=== PATIENT | male | born 1950 | race Caucasian/White ===

== ENCOUNTER 2018-11-16 18:18 | Inpatient (IN) | payer MEDICARE, OTHER ==
[~2018-11-16] VITALS: Ht 175.3 cm; Wt 87.5 kg
--- NOTE | ~2018-11-16 | EC ---
PATIENT:HELGA OLSON DATE OF SERVICE: 11/16/18 SEX: M MEDICAL RECORD: [id number] DATE OF : [birth year] LOCATION:D.[facility] AGE OF PATIENT: 68 ADMISSION DATE: 11/16/18 REFERRING PHYSICIAN: INTERPRETING PHYSICIAN: YANN RODRIGES MD ECHOCARDIOGRAM REPORT ECHO CHARGES 4 ECHO COMPLETE Date: 11/19/18 CLINICAL DIAGNOSIS: CHF/HYPOTENSION ECHOCARDIOGRAPHIC MEASUREMENTS (adult normal given) AC root (d.<3.7cm) 3.3 cm LV Septum d (<1.2 cm> 1.4 cm Valve Excursion 1.7 cm LV Septum (systole) 2.3 cm Left Atria (s.<4.0cm> 5.1 cm LVPW d(<1.2cm) 2.0 cm RV (d.<2.3cm) 3.1 cm LVPW (sytole) 2.6 cm LV diastole(<5.6CM) 5.2 cm MV E-F(>70mm/sec) cm LV systole 2.8 cm LVOT Diameter 2.1 cm MV exc.(>10mm) cm Est.ejection fraction (50-75%) % DOPPLER: LVIT cm/sec A 85.0 cm/sec E 66.0 cm/sec LA cm/sec RVSP 31.0 mmHg LVOT 91.0 cm/sec AOP1/2T m/s Asc. Ao 133 cm/sec RVOT 67.0 cm/sec RA cm/sec PA 97.0 cm/sec AV Gradient Peak 7.0 mmHg AV Mean 3.6 mmHg AV Area 2.3 cm MV Gradient Peak 4.2 mmHg MV Mean 1.7 mmHg MV Area cm COMMENTS: Human Services Program Specialist: Phyllis GUTIERRESOE Supervisor Heavy Equipment: 3 Dr. Haddad TAPE# PACS Pericardial Effusion N DATE OF SERVICE: Adequate 2D, color flow, spectral Doppler, and M-mode. LVH is present. LV internal dimensions are normal. LV is mildly globally hypo. LV function is lower limits of normal to mildly reduced at 45% to 50%. Aortic valve is tricuspid. No evidence of stenosis by Doppler interrogation. Left atrium is dilated at 5.1 cm. Mitral valve shows no prolapse. Mild MR. Right-sided chambers grossly normal. Trace to mild TR. TRANSINT:[id number] Voice Confirmation ID: [id number] DOCUMENT ID: [id number] ECHOCARDIOGRAM REPORT [id number] HELGA OLSON GREGORY A MD CC: [id number] DICTATION DATE: 11/20/18847 CARTON FORMING MACHINE OPERATOR: 11/20/18 1041 ADM IN [facility] [address] [place] [address]
[~2018-11-16 18:18] MED LIST: ASPIRIN325 MG PO; COREG 3.1253.125 MG NG; EFFEXOR75 MG PO; FLOMAX0.4 MG PO; GLUCOPHAGE1000 MG PO; HYDROCODONE-APA1 TAB PO; LIPITOR80 MG PO; PACERONE200 MG PO; ZESTRIL20 MG PO
[2018-11-16] MEDS ORDERED: COREG12.5 MG PO (18:29)
[2018-11-16] MEDS ORDERED: ASPIRIN81 MG PO (18:29)
[2018-11-16] MEDS ORDERED: EFFEXOR XR150 MG PO (18:29)
[2018-11-16] MEDS ORDERED: PLAVIX75 MG PO (18:30)
[2018-11-16] MEDS ORDERED: GLIMEPIRIDE4 MG PO (18:30)
[2018-11-16] MEDS ORDERED: HYDROCHLOROTH12.5 M1 PO (18:30)
[2018-11-16 20:14] LABS: BASOPHILS 0.1 % (0-2); EOSINOPHILS 0.6 % (0-7); HEMATOCRIT 41.8 % (42.0-54.0); HEMOGLOBIN 14.5 g/dL (13.5-17.5); IMMATURE GRANULOCYTES 0.2 % (0-5); LYMPHOCYTES 8.5 % (15-50); MCH 31.3 pg (26.0-34.0); MCHC 34.7 g/dL (31.0-37.0); MCV 90.3 fL (80.0-100.0); MONOCYTES 3.7 % (2-11); NEUTROPHILS 86.9 % (40-80); PLATELET COUNT 188 10x3/uL (130-400); RBC 4.63 10x6/uL (4.20-6.10); RDW 13.5 % (11.5-14.5); WBC 17.1 10x3/uL (4.8-10.8)
--- NOTE | 2018-11-16 20:21 | NUR ---
PT GIVEN WARM BLANKETS.
[2018-11-16 20:23] LABS: APTT 23.9 SECONDS (22.8-39.4); INR 1.01 (0.85-1.17); PROTIME 12.8 SECONDS (11.6-15.0)
[2018-11-16 20:29] LABS: ALBUMIN 3.4 g/dL (3.4-5.0); ANION GAP 12.2 mmol/L (8-16); BILIRUBIN - TOTAL 0.25 mg/dL (0.2-1.3); CALCIUM 8.9 mg/dL (8.5-10.1); CARBON DIOXIDE 26.6 mmol/L (21.0-32.0); CREATININE - SERUM 2.4 mg/dL (0.6-1.3); POTASSIUM - SERUM 4.8 mmol/L (3.5-5.1); PROTEIN - SERUM 7.1 g/dL (6.4-8.2)
--- NOTE | 2018-11-16 21:45 | NUR ---
PT'S DEFIBULATOR INTERROGATED AND SENT TO [employer].
--- NOTE | 2018-11-16 22:24 | NUR ---
ARRIVED ON FLOOR VIA STRETCHER. FAMILY AT SIDE. TREANSFERRED TO BED. ORIENTED TO ROOM AND CALL LIGHT. REIMBURSEMENT AUDITOR AND FLUIDS INITITATED. ASSESSMENT AND HISTORY PER FLOW SHEET. NO NEEDS VOICED AT THIS TIME. CALL LIGHT AT SIDE.
--- NOTE | 2018-11-16 22:54 | NUR ---
[facility] CALLED AND REPORTS THERE WAS NO EVENTS ON HIS PACEMAKER/DEFIB. REPORT TO FOLLOW VIA FAX.
[2018-11-17] VITALS (7 sets, daily range): BP systolic 89–115; BP diastolic 49–73; Ht 175.3 cm; Wt 87.5 kg
--- NOTE | 2018-11-17 05:41 | NUR ---
BP 89/51 500ML NS BOLUS GIVEN WILL RECHECK BP.
--- NOTE | 2018-11-17 06:03 | NUR ---
BP NOW 115/73
[2018-11-17 06:48] LABS: BASOPHILS 0.1 % (0-2); EOSINOPHILS 0 % (0-7); HEMATOCRIT 37.1 % (42.0-54.0); HEMOGLOBIN 12.8 g/dL (13.5-17.5); IMMATURE GRANULOCYTES 0.1 % (0-5); LYMPHOCYTES 19.1 % (15-50); MCH 31.3 pg (26.0-34.0); MCHC 34.5 g/dL (31.0-37.0); MCV 90.7 fL (80.0-100.0); MEAN PLATELET VOLUME 10.4 fL (7.4-10.4); MONOCYTES 7.4 % (2-11); NEUTROPHILS 73.3 % (40-80); PLATELET COUNT 174 10x3/uL (130-400); RBC 4.09 10x6/uL (4.20-6.10); RDW 13.7 % (11.5-14.5)
[2018-11-17 06:51] LABS: WBC 9.3 10x3/uL (4.8-10.8)
[2018-11-17 06:57] LABS: ALBUMIN 2.9 g/dL (3.4-5.0); ANION GAP 13.6 mmol/L (8-16); BILIRUBIN - TOTAL 0.28 mg/dL (0.2-1.3); CALCIUM 8.2 mg/dL (8.5-10.1); CARBON DIOXIDE 24.1 mmol/L (21.0-32.0); CREATININE - SERUM 2.4 mg/dL (0.6-1.3); POTASSIUM - SERUM 4.7 mmol/L (3.5-5.1); PROTEIN - SERUM 6.2 g/dL (6.4-8.2)
--- NOTE | 2018-11-17 07:00 | NUR ---
UNABLE TO VOID. IN AND OUT PREFORMED USING FINAL INSPECTOR MOTORCYLES WITH 700 ML RETURN.
[2018-11-17 08:45] LABS: APPEARANCE CLEAR (CLEAR); BILIRUBIN NEGATIVE (NEGATIVE); COLOR YELLOW (YELLOW); GLUCOSE 250 mg/dL (NEGATIVE); KETONE NEGATIVE (NEGATIVE); NITRITE NEGATIVE (NEGATIVE); PROTEIN 1+ mg/dL (NEGATIVE); SPECIFIC GRAVITY 1.025 (1.005-1.020); UROBILINOGEN NORMAL (NORMAL)
[2018-11-17 08:46] LABS: WHITE CELLS - URINE NSEEN /hpf (0-5)
[2018-11-17 08:47] LABS: BACTERIA NONE SEEN /hpf (NONE SEEN); EPITHELIAL CELLS NSEEN /hpf (0-5); RED CELLS - URINE 0-5 /hpf (0-5)
--- NOTE | 2018-11-17 09:00 | NUR ---
ALERT AND ORIENTED X4 WITH FAMILY PRESENT. LIMITED ROM WITH SHORTNNG OF LLE WITH PEDAL PULSES NOTED. PT. NPO PENDING SURGERY TODAY WITH CONSENTS SIGNED. IVF INFUSING AT PRESCRIBED RATE WITH ADMINISTRATIVE SUPPORT ASSISTANT MORPHINE. TELEMETRY INTACT. ENCOURAGED TO USE CALL LIGHT FOR ASSIST. WITH NO PAIN NOTED AT THIS TIME.
[2018-11-17 12:00] LABS: PLT FUNCT.(P2Y12) PLAVIX 79 PRU (194-418)
--- NOTE | 2018-11-17 12:15 | NUR ---
PT PREMEDICATED FOR SURGERY AND LEFT VIA BED. STABLE AT TIME OF DEPARTURE.
[2018-11-17 14:42] LABS: HEMATOCRIT 36.1 % (42.0-54.0)
--- NOTE | 2018-11-17 17:41 | NUR ---
CONSULTED ANESTHESIA REGARDING DECREASED BLOOD PRESSURE UPON ARRIVAL TO PACU. VERBAL ORDERS RECEIVED TO ADMINISTER N2 0.9% 500 BOLUS. ORDERS RECEIVED AND IMPLEMENTED. WILL CONTINUE TO MONITOR. BP 75/59, HR 71.
--- NOTE | 2018-11-17 18:05 | NUR ---
PT RECEIVED BACK TO ROOM WITH DRESSINGS DRY AND INTACT TO LT. HIP. EASY TO AROUSE WITH O2 4 LITERS N/C WITH TELEMETRY
--- NOTE | 2018-11-17 19:15 | NUR ---
RECEIVED CARE FROM DAY NURSE. LYING IN BED WITH COMPANY AT SIDE. IV INFUSING TO PATENT RIGHT HAND. CONTINUOUS VITALS IN PLACE. ICE TO LEFT HIP. DRESSING TO LEFT HIP CDI. CALL LIGHT AT SIDE. REPORTS NO NEEDS AT THIS TIME.
--- NOTE | 2018-11-17 20:50 | OP ---
PATIENT NAME: HELGA OLSON MEDICAL RECORD: [id number] :50 LOCATION:D.MS [id number] ADMISSION DATE:11/16/18 SURGEON: ALYSSA EGAN DO DATE OF OPERATION: 11/17/2018 PROCEDURE PERFORMED: Left hip intramedullary nailing. PREOPERATIVE DIAGNOSIS: Left femur subtrochanteric fracture closed and displaced. POSTOPERATIVE DIAGNOSIS: Left femur subtrochanteric fracture closed and displaced. INDICATIONS: Mr. Olson is a 68-year-old male who fell off his porch yesterday and down some steps onto his left hip and sustained a subtrochanteric hip fracture. It was comminuted and displaced and shortened and he came to the ER and could not bear weight on it, I informed them I could put a angela down and hopefully get it to heal. However, he is a smoker and has cardiovascular disease as well. I told him that if he did not stop smoking the chances of nonunion is very high, as well as infection, bleeding, damage to nerves and vessels, need for further surgery, and continued pain. He was okay with those risks also with blood clots, and even and he signed a consent. SURGEON: Alyssa Egan DO DESCRIPTION OF PROCEDURE: The patient was taken to the operative suite, laid in the supine position, given a general anesthetic and LMA was placed. The patient was then moved over to the Melville table and a reduction was attempted closed and this clearly seemed not be possible. The left hip was then prepped and draped in sterile fashion. The hip was opened on the lateral aspect. Dissection was made down through the IT band to the fracture itself. The fracture was somewhat difficult, but we got it reduced. Once we reduced, a cable was put around it; 2 cables and then a clamp. Once that was holding, the IM nail portion began and on AP and lateral, got good entry into the intramedullary canal of the femur. Once the canal was entered, the guide pin was put down the femur and measured to be a 380 mm in length. We started reaming then and reamed up to a 13 and 11 nail was put down and seemed to be in good position on AP and lateral and holding the fracture well. The lag screw was then put in and seemed to be in good position on AP and lateral, a 105-mm lag screw and then antirotational screw of 85 were put in. This was confirmed to be in good position AP and lateral. Then, a perfect [place] was done distally and a static hole was used to put a 5-mm screw and the final x-rays were then done. The poke hole for the distal screw was closed with 2-0 Vicryl in an inverted interrupted fashion, 4-0 Monocryl subcuticularly. The upper portion of the longer incision was irrigated thoroughly and then closed with #1 Vicryl in a [id number]-vr-hobfx fashion. The IT band was closed with 2-0 Vicryl in inverted interrupted fashion and the skin and a ZipLine was placed on the skin. Adaptic, 4 x 4's, ABD and Medipore tape were then used to cover the larger incision. Adaptic, 4 x 4s and Medipore tape were used at the small incision distally. The patient was awakened and taken to the recovery in stable condition. Blood loss approximately 600 mL. OPERATIVE REPORT [id number] HELGA OLSON COMPLICATIONS: None. TRANSINT:[id number] Voice Confirmation ID: [id number] DOCUMENT ID: [id number] ALYSSA EGAN DO at 2050 CC: [id number] DICTATION DATE: 11/17/18 1647 RETAIL CUSTODIAL ASSOCIATE: 11/17/182037 ADM IN [facility] [address] [place] [address]
[2018-11-18] VITALS: BP 111/54
--- NOTE | 2018-11-18 00:42 | NUR ---
UNABLE TO VOID. IN AND OUT CATH USING CHIP PERSON DONE PER ORDER. RETURN OF 800 ML OF DARK YELLOW URINE.
--- NOTE | 2018-11-18 03:11 | NUR ---
I have reviewed this patient and I concur with the Shift Assessment completed by the Licensed Practical Nurse today this shift.
[2018-11-18 04:00] VITALS: BP 99/61
--- NOTE | 2018-11-18 07:00 | NUR ---
PATIENT RECIEVED FROM PREVIOUS SHIFT RESTING IN BED WITH NO REPORTS OF PAIN. HE WAS ABLE TO VOID 150CC. DRESSING TO LEFT HIP CLEAN, DRY, AND INTACT. CL IN REACH, AT SIDE
[2018-11-18 07:08] LABS: BASOPHILS 0.2 % (0-2); EOSINOPHILS 0.1 % (0-7); IMMATURE GRANULOCYTES 0.2 % (0-5); LYMPHOCYTES 9.9 % (15-50); MCH 29.5 pg (26.0-34.0); MCHC 33.2 g/dL (31.0-37.0); MCV 88.9 fL (80.0-100.0); MEAN PLATELET VOLUME 10.4 fL (7.4-10.4); MONOCYTES 10.3 % (2-11); NEUTROPHILS 79.3 % (40-80); RDW 15.5 % (11.5-14.5); WBC 10.3 10x3/uL (4.8-10.8)
[2018-11-18 07:12] LABS: HEMOGLOBIN 9.3 g/dL (13.5-17.5); PLATELET COUNT 121 10x3/uL (130-400); RBC 3.15 10x6/uL (4.20-6.10)
[2018-11-18 07:30] LABS: ALBUMIN 2.3 g/dL (3.4-5.0); ANION GAP 14.9 mmol/L (8-16); BILIRUBIN - TOTAL 0.32 mg/dL (0.2-1.3); CALCIUM 7.1 mg/dL (8.5-10.1); CARBON DIOXIDE 19.6 mmol/L (21.0-32.0); CREATININE - SERUM 2.5 mg/dL (0.6-1.3); POTASSIUM - SERUM 4.5 mmol/L (3.5-5.1)
[2018-11-18 08:32] VITALS: BP 99/69
[2018-11-18 13:28] VITALS: BP 100/55
[2018-11-18 16:56] VITALS: BP 101/52
[2018-11-18 20:00] VITALS: BP 88/45
[2018-11-19] VITALS: BP 95/49
--- NOTE | 2018-11-19 00:30 | NUR ---
PT RESTLESS, TELLING HE WANTS TO GET OUT OF BED AND ARGUING WITH . GOING HOME TONIGHT. PT'S SISTER STAYING THE NIGHT WITH PT. GAVE PT A KLONIPIN FOR RESTLESSNESS/ANXIETY. PT HAS NOW PULLED IV OUT, CATHETER INTACT. HE RIPPED BLOOD BAND OFF HIS ARM, ALSO. FOUND IT IN FLOOR. SAYS HE PULLED IT OUT ON PURPOSE BECAUSE HE "DOESN'T NEED ALL THAT STUFF." REFUSES TO LET US START ANOTHER IV TONIGHT. PT IS ONLY GETTING IV FLUIDS. WILL LEAVE OUT FOR NOW. WILL CONTINUE TO MONITOR.
--- NOTE | 2018-11-19 02:02 | NUR ---
PT CONFUSED TO PLACE. TOOK OFF TELEMETRY AND REFUSES TO PUT BACK ON.
[2018-11-19 04:00] VITALS: BP 93/51
--- NOTE | 2018-11-19 04:19 | NUR ---
PT AGREEABLE TO IV NOW. RESITED 22 G IV TO LEFT FOREARM BY SAHIL VERMA. RESUMED IV FLUIDS. PT PICKED OFF LEFT HIP DRESSING STATING HE WAS "ITCHING". STERI STRIPS STILL IN PLACE. APPLIED BORDERED GAUZE DRESSING. GAVE BENEDRYL 25 MG IV PUSH FOR ITCHING. NO OTHER NEEDS. SISTER AT BEDSIDE. WILL CONTINUE TO MONITOR.
--- NOTE | 2018-11-19 06:04 | NUR ---
TEMP 101.0 AND PT WHEEZING/CONGESTED. GAVE TYLENOL 650 MG PO AND ORDERED CHEST X-RAY, BLOOD CULTURES AND DUO-NEB PRN PER HARLEY MARTINES.
[2018-11-19 06:10] LABS: BASOPHILS 0.1 % (0-2); EOSINOPHILS 0.3 % (0-7); HEMATOCRIT 23.1 % (42.0-54.0); HEMOGLOBIN 7.9 g/dL (13.5-17.5); IMMATURE GRANULOCYTES 0.2 % (0-5); LYMPHOCYTES 10.2 % (15-50); MCH 29.8 pg (26.0-34.0); MCHC 34.2 g/dL (31.0-37.0); MCV 87.2 fL (80.0-100.0); MEAN PLATELET VOLUME 10.3 fL (7.4-10.4); MONOCYTES 13.6 % (2-11); NEUTROPHILS 75.6 % (40-80); PLATELET COUNT 107 10x3/uL (130-400); RBC 2.65 10x6/uL (4.20-6.10); RDW 14.5 % (11.5-14.5); WBC 8.9 10x3/uL (4.8-10.8)
[2018-11-19 06:35] LABS: ALBUMIN 2.3 g/dL (3.4-5.0); ANION GAP 14.4 mmol/L (8-16); BILIRUBIN - TOTAL 0.47 mg/dL (0.2-1.3); CALCIUM 7.7 mg/dL (8.5-10.1); CARBON DIOXIDE 20.7 mmol/L (21.0-32.0); CREATININE - SERUM 2.1 mg/dL (0.6-1.3); POTASSIUM - SERUM 4.1 mmol/L (3.5-5.1); PROTEIN - SERUM 5.2 g/dL (6.4-8.2)
[2018-11-19 08:41] VITALS: BP 100/52
[2018-11-19 14:01] VITALS: BP 82/47
--- NOTE | 2018-11-19 14:44 | MORECARE ---
CASE MANAGEMENT DISCHARGE SUMMARY PATIENT: HELGA OLSON UNIT: [id number] ADM DATE: 11/16/18 AGE: 68 : 50 SEX: M ROOM/BED: D.2233 AUTHOR: TEETEE MCCLENDON PHYSICIAN: REFERRING PHYSICIAN: HOWARD NEVILLE MD DATE OF SERVICE: 11/19/18 Discharge Plan Patient Name: HELGA OLSON Facility: [facility]:[place] : 1950 Planned Disposition: Inpatient Rehab Anticipated Discharge Date: Discharge Date: Expected LOS: Initial Reviewer: [email or web address] Initial Review Date: 11/19/2018 Generated: 11/19/18 3:43 pm DCPIA - Discharge Planning Initial Assessment Updated by [email or web address]: Selam Samaniego on 11/19/18 2:42 pm * Is the patient Alert and Oriented? No * PCP [facility] * [facility] * Preadmission Environment Home with Family * ADLs Independent * Additional services required to return to the preadmission environment? Yes * Can the patient safely return to the preadmission environment? No * Has this patient been hospitalized within the prior 30 days at any hospital? No Patient Name: HELGA OLSON Page [phone] at 1444 All edits/amendments must be made on the electronic document DICTATION DATE: 11/19/181442 REGISTERED NURSE FETAL: CADEN 11/19/18 1443 RPT#: [id number] DC DATE: STATUS: ADM IN [facility] [address] [place] [address] END OF REPORT
--- NOTE | 2018-11-19 14:53 | MORECARE ---
CASE MANAGEMENT DISCHARGE SUMMARY PATIENT: HELGA OLSON UNIT: [id number] ADM DATE: 11/16/18 AGE: 68 : 50 SEX: M ROOM/BED: D.2233 AUTHOR: TEETEE MCCLENDON PHYSICIAN: REFERRING PHYSICIAN: HOWARD NEVILLE MD DATE OF SERVICE: 11/19/18 Discharge Plan Patient Name: HELGA OLSON Facility: [facility]:[place] : 1950 Planned Disposition: Inpatient Rehab Anticipated Discharge Date: Discharge Date: Expected LOS: Initial Reviewer: [email or web address] Initial Review Date: 11/19/2018 Generated: 11/19/18 3:53 pm Comments DCP- Discharge Planning Updated by [id number]: Selam Samaniego on 11/19/18 1:[address] Patient Name: HELGA OLSON Admission Status: ER Accout number: [id number] Admission Date: 11-16-2018 : 1950 Admission Diagnosis: Attending: HOWARD NEVILLE Current LOS: 3 Anticipated DC Date: Planned Disposition: Inpatient Rehab Primary Insurance: MEDICARE A & B Discharge Planning Comments:CM MET WITH PATIENT AND HIS ABOUT DC PLANNING/ NEEDS. PATIENT IS VERY CONFUSED. CM SPOKE WITH WHO IS IN TEARS. SHE SAID HER HAS NEVER BEEN THIS CONFUSED. CM SPOKE WITH DANIE AND SHE IS ORDERING A CT. FAMILY IS INTERESTED IN IN PATIENT REHAB WHEN DISCHARGED. SARAH NOTIFIED. CM TO FOLLOW AND ASSIST. Radiographer: Selam Samaniego DCPIA - Discharge Planning Initial Assessment Updated by [id number]: Selam Samaniego on 11/19/18 2:42 pm * Is the patient Alert and Oriented? No * PCP [facility] * Pharmacy [facility] * Preadmission Environment Home with Family * ADLs Independent * Additional services required to return to the preadmission environment? Yes * Can the patient safely return to the preadmission environment? No * Has this patient been hospitalized within the prior 30 days at any hospital? No Last DP export: 11/19/18 1:44 p Patient Name: HELGA OLSON Page [phone] at 1453 All edits/amendments must be made on the electronic document DICTATION DATE: 11/19/181452 DIAGNOSTIC SALES SPECIALIST: CADEN 11/19/181452 RPT#: [id number] [place] DATE: STATUS: ADM IN [facility] [address] [place] [address] END OF REPORT
--- NOTE | 2018-11-19 15:00 | NUR ---
FIRST UNIT OF PRBC WAS STARTED AT THIS TIME VIA RN. TOLERATED WELL. C/L IN REACH AT BEDSIDE.
--- NOTE | 2018-11-19 18:13 | NUR ---
I have reviewed this patient and I concur with the Shift Assessment completed by the Licensed Practical Nurse today this shift.
--- NOTE | 2018-11-19 18:20 | NUR ---
SECOND UNIT OF PRBC STARTED. TOLERATING WELL. WILL CONTINUE TO OBSERVE. FAMILY AND C/L AT BEDSIDE.
[2018-11-19 20:00] VITALS: BP 97/59
--- NOTE | 2018-11-19 20:00 | NUR ---
ALERT CONFUSED AND RESTLESS IN BED, ATTEMPTING TO PULL IV OUT, FAMILY MEMBERS LEAVING AT THIS TIME, PABLODON GIVEN ORDERED, SEE SHIFT ASSESSMENT, BLOOD INFUSING WITHOUT DIFFICULTY, CALL LIGHT IN REACH, WILL MONITOR
--- NOTE | 2018-11-19 21:00 | NUR ---
MORE RELAXED NOW BLOOD FINISHED AND 500 CC NS BOLUS GIVEN ORDERS DUE TO BP REMAINS 103/54
[2018-11-20] VITALS: BP 103/62
[2018-11-20 06:55] LABS: BASOPHILS 0.1 % (0-2); EOSINOPHILS 0.6 % (0-7); HEMATOCRIT 25.9 % (42.0-54.0); IMMATURE GRANULOCYTES 0.3 % (0-5); LYMPHOCYTES 9.8 % (15-50); MCHC 34.7 g/dL (31.0-37.0); MCV 86.3 fL (80.0-100.0); MEAN PLATELET VOLUME 9.8 fL (7.4-10.4); MONOCYTES 12.9 % (2-11); NEUTROPHILS 76.3 % (40-80); PLATELET COUNT 113 10x3/uL (130-400); RDW 15.1 % (11.5-14.5); WBC 8.6 10x3/uL (4.8-10.8)
[2018-11-20 07:47] LABS: ALBUMIN 2.1 g/dL (3.4-5.0); ANION GAP 14.1 mmol/L (8-16); BILIRUBIN - TOTAL 0.72 mg/dL (0.2-1.3); CARBON DIOXIDE 20.9 mmol/L (21.0-32.0); CREATININE - SERUM 1.7 mg/dL (0.6-1.3); PROTEIN - SERUM 4.7 g/dL (6.4-8.2)
[2018-11-20 08:59] VITALS: BP 114/71
--- NOTE | 2018-11-20 09:40 | NUR ---
ALERT AND ORIENTED. RESTING IN BED. NO C/O PAIN. NO S/S OF ACUTE DISTRESS NOTED. PT DENIES ANY NEEDS AT THIS TIME. CALL LIGHT IN REACH. WILL CONTINUE TO MONITOR.
--- NOTE | 2018-11-20 12:21 | NUR ---
REHAB PRESCREENING Rehab referral received and chart reviewed. Mr. Marshall is a good candidate for acute inpatient rehab. Plan to accept to rehab when his physicians feel is appropriate for discharge. Thank you for this referral! Aniyah Arvizu, REGULATOR TESTER Rehab PD
[2018-11-20] MEDS ORDERED: IPRAT-ALBUT 0.5-3 ML UPD (12:27)
[2018-11-20] MEDS ORDERED: FLOMAX0.4 MG PO (12:27)
[2018-11-20] MEDS ORDERED: ELIQUIS2.5 MG PO (12:28)
[2018-11-20] MEDS ORDERED: Senokot-S Tablet PO (12:28)
[2018-11-20] MEDS ORDERED: PROTONIX40 MG PO (12:28)
[2018-11-20] MEDS ORDERED: HUMALOG 30100 UNITS/ SC (12:29)
[2018-11-20] MEDS ORDERED: oxyCODONE IR PO (12:54)
[2018-11-20] MEDS ORDERED: HYDROCODON-ACE1 EAC7 PO (12:57)
[2018-11-20 13:11] VITALS: BP 105/69
--- NOTE | 2018-11-20 13:17 | MORECARE ---
CASE MANAGEMENT DISCHARGE SUMMARY PATIENT: HELGA OLSON UNIT: [id number] ADM DATE: 11/16/18 AGE: 68 : 50 SEX: M ROOM/BED: D.2233 AUTHOR: TEETEE MCCLENDON PHYSICIAN: REFERRING PHYSICIAN: HOWARD NEVILLE MD DATE OF SERVICE: 11/20/18 Discharge Plan Patient Name: HELGA OLSON Facility: [facility]:[place] : 1950 Planned Disposition: Inpatient Rehab Anticipated Discharge Date: Discharge Date: Expected LOS: Initial Reviewer: [email or web address] Initial Review Date: 11/19/2018 Generated: 11/20/18 2:17 pm Comments DCP- Discharge Planning Updated by [id number]: Selam Samaniego on 11/19/18 1:[address] Patient Name: HELGA OLSON Admission Status: ER Accout number: [id number] Admission Date: 11-16-2018 : 1950 Admission Diagnosis: Attending: HOWARD NEVILLE Current LOS: 3 Anticipated DC Date: Planned Disposition: Inpatient Rehab Primary Insurance: MEDICARE A & B Discharge Planning Comments:CM MET WITH PATIENT AND HIS ABOUT DC PLANNING/ NEEDS. PATIENT IS VERY CONFUSED. CM SPOKE WITH WHO IS IN TEARS. SHE SAID HER HAS NEVER BEEN THIS CONFUSED. CM SPOKE WITH DANIE AND SHE IS ORDERING A CT. FAMILY IS INTERESTED IN IN PATIENT REHAB WHEN DISCHARGED. SARAH NOTIFIED. CM TO FOLLOW AND ASSIST. Casting Inspector: Selam Samaniego DCPIA - Discharge Planning Initial Assessment Updated by [id number]: Selam Samaniego on 11/19/18 2:42 pm * Is the patient Alert and Oriented? No * PCP [facility] * Pharmacy [facility] * Preadmission Environment Home with Family * ADLs Independent * Additional services required to return to the preadmission environment? Yes * Can the patient safely return to the preadmission environment? No * Has this patient been hospitalized within the prior 30 days at any hospital? No Coverage Notice Reviewer: [id number] - Selam Samaniego Notice Issued Date-Time: 11/20/2018 13:10 Notice Type: IM Discharge Notice Notice Delivered To: Patient Relationship to Patient: Pharmacist Technician Name: Delivery Method: HAND - Hand Delivered Viri Days: Prior Verbal Notification: Recipient Understood Notice: Yes Recipient Signature: Yes Med Rec Note Co-signed by Attending: Coverage Notice Comment: Last DP export: 11/19/18 1:53 p Patient Name: HELGA OLSON Page [phone] at 1317 All edits/amendments must be made on the electronic document DICTATION DATE: 11/20/181316 CANDLE EXTRUSION MACHINE OPERATOR: CADEN 11/20/187 RPT#: [id number] DC DATE: STATUS: ADM IN [facility] [address] [place] [address] END OF REPORT
--- NOTE | 2018-11-20 14:47 | NUR ---
I have reviewed this patient and I concur with the Shift Assessment completed by the Licensed Practical Nurse today this shift.
--- NOTE | 2018-11-20 15:00 | NUR ---
CHANGED DRESSING TO LEFT HIP/THIGH. REMOVED OLD DRESSING AND REPLACED WITH BORDERED GAUZE DRESSING. INCISION C/D, NO DRAINAGE PRESENT.
[2018-11-20 16:44] VITALS: BP 102/59
--- NOTE | 2018-11-20 18:10 | NUR ---
DICHARGED PT TO INPATIENT REHAB. DISCONTINUED IV, CATHETER TIP INTACT. WENT OVER DISCHARGE INSTRUCTIONS, PATIENT VERBALIZED UNDERSTANDING.
--- NOTE | 2018-11-21 08:35 | MORECARE ---
CASE MANAGEMENT DISCHARGE SUMMARY PATIENT: HELGA OLSON UNIT: [id number] ADM DATE: 11/16/18 AGE: 68 : 50 SEX: M ROOM/BED: D.2233 AUTHOR: TEETEE MCCLENDON PHYSICIAN: REFERRING PHYSICIAN: HOWARD NEVILLE MD DATE OF SERVICE: 11/21/18 Discharge Plan Patient Name: HELGA OLSON Facility: [facility]:[place] : 1950 Planned Disposition: Inpatient Rehab Anticipated Discharge Date: Discharge Date: 11/20/2018 Expected LOS: Initial Reviewer: [email or web address] Initial Review Date: 11/19/2018 Generated: 11/21/18 9:34 am Comments DCP- Discharge Planning Updated by [id number]: Selam Samaniego on 11/19/18 1:[address] Patient Name: HELGA OLSON Admission Status: ER Accout number: [id number] Admission Date: 11-16-2018 : 1950 Admission Diagnosis: Attending: HOWARD NEVILLE Current LOS: 3 Anticipated DC Date: Planned Disposition: Inpatient Rehab Primary Insurance: MEDICARE A & B Discharge Planning Comments:CM MET WITH PATIENT AND HIS ABOUT DC PLANNING/ NEEDS. PATIENT IS VERY CONFUSED. CM SPOKE WITH WHO IS IN TEARS. SHE SAID HER HAS NEVER BEEN THIS CONFUSED. CM SPOKE WITH DANIE AND SHE IS ORDERING A CT. FAMILY IS INTERESTED IN IN PATIENT REHAB WHEN DISCHARGED. SARAH NOTIFIED. CM TO FOLLOW AND ASSIST. Cosmetician Apprentice: Selam Samaniego DCPIA - Discharge Planning Initial Assessment Updated by [email or web address]: Selam Samaniego on 11/19/18 2:42 pm * Is the patient Alert and Oriented? No * PCP [facility] * Pharmacy [facility] * Preadmission Environment Home with Family * ADLs Independent * Additional services required to return to the preadmission environment? Yes * Can the patient safely return to the preadmission environment? No * Has this patient been hospitalized within the prior 30 days at any hospital? No Coverage Notice Reviewer: [id number] - Selam Samaniego Notice Issued Date-Time: 11/20/2018 13:10 Notice Type: IM Discharge Notice Notice Delivered To: Patient Relationship to Patient: Four Horse Hitch Driver Name: Delivery Method: HAND - Hand Delivered Viri Days: Prior Verbal Notification: Recipient Understood Notice: Yes Recipient Signature: Yes Med Rec Note Co-signed by Attending: Coverage Notice Comment: Last DP export: 11/20/18 12:17 p Patient Name: HELGA OLSON Page [phone] at 0835 All edits/amendments must be made on the electronic document DICTATION DATE: 11/21/18833 RETAIL CHAIN STORE AREA SUPERVISOR: CADEN 11/21/1834 RPT#: [id number] DC DATE:11/20/18 STATUS: DIS IN [facility] [address] [place] [address] END OF REPORT
== END 2018-11-20 18:57 | DRG 480 ==
LOC: D.ER 18:18 → D.MS 20:55
PROVIDERS: Anesthesiology; Emergency Medicine; Family Medicine; Internal Medicine Cardiovascular Disease; Orthopaedic Surgery; ADMIT Family Medicine; ATTEND Family Medicine
PROC: 0QS706Z Reposition Left Upper Femur with Intramedullary Internal Fixation Device, Open Approach (ICD-10-PCS; principal; 2018-11-17 12:30)
DX: S72.22XA Displaced subtrochanteric fracture of left femur, initial encounter for closed fracture (principal); G93.41 Metabolic encephalopathy; F17.203 Nicotine dependence unspecified, with withdrawal; R44.3 Hallucinations, unspecified; J98.11 Atelectasis; W10.8XXA Fall (on) (from) other stairs and steps, initial encounter; Y93.89 Activity, other specified; Y92.008 Other place in unspecified non-institutional (private) residence as the place of occurrence of the external cause; E11.65 Type 2 diabetes mellitus with hyperglycemia; I10 Essential (primary) hypertension; I25.10 Atherosclerotic heart disease of native coronary artery without angina pectoris; F41.8 Other specified anxiety disorders; Z95.0 Presence of cardiac pacemaker; I25.5 Ischemic cardiomyopathy

== ENCOUNTER 2018-11-20 16:14 | Inpatient (IN) | payer MEDICARE, OTHER ==
[~2018-11-20] VITALS: Ht 175.3 cm; Wt 88.5 kg
[~2018-11-20 16:14] MED LIST changes: +ASPIRIN81 MG PO; +COREG12.5 MG PO; +EFFEXOR XR150 MG PO; +ELIQUIS2.5 MG PO; +GLIMEPIRIDE4 MG PO; +HUMALOG 30100 UNITS/ SC; +HYDROCHLOROTH12.5 M1 PO; +HYDROCODON-ACE1 EAC7 PO; +IPRAT-ALBUT 0.5-3 ML UPD; +PLAVIX75 MG PO; +PROTONIX40 MG PO; +Senokot-S Tablet PO; +oxyCODONE IR PO
--- NOTE | 2018-11-20 19:40 | NUR ---
GREETED PATIENT AND INTRODUCED MYSELF. PATIENT IS LAYING IN BED WATCHING TV AND DENIES ANY NEEDS AT THIS TIME. PATIENTS AT BEDSIDE SIGNING ADMISSION PAPERWORK. CALL LIGHT IN REACH.
[2018-11-20 21:10] VITALS: BP 131/62
[2018-11-20 22:46] VITALS: BP 131/62; BMI 28.8
--- NOTE | 2018-11-21 03:25 | NUR ---
PATIENT AWAKE AND WATCHING TV. REQUESTED A CUP OF COFFEE. DENIES ANY OTHER NEEDS AT THIS TIME. CALL LIGHT IN REACH.
[2018-11-21 07:39] LABS: BASOPHILS 0.2 % (0-2); EOSINOPHILS 2.1 % (0-7); IMMATURE GRANULOCYTES 0.2 % (0-5); LYMPHOCYTES 12.2 % (15-50); MCH 30.3 pg (26.0-34.0); MCHC 34.6 g/dL (31.0-37.0); MCV 87.5 fL (80.0-100.0); MEAN PLATELET VOLUME 9.9 fL (7.4-10.4); MONOCYTES 13.4 % (2-11); NEUTROPHILS 71.9 % (40-80); RBC 2.97 10x6/uL (4.20-6.10); RDW 14.9 % (11.5-14.5); WBC 8.6 10x3/uL (4.8-10.8)
--- NOTE | 2018-11-21 07:41 | NUR ---
ALERT AND ORIENTED. DAUGHTER AT BS. BREAKFAST SERVED. CL IN REACH.
[2018-11-21 07:42] VITALS: BP 118/73
[2018-11-21 07:47] LABS: PLATELET COUNT 144 10x3/uL (130-400)
[2018-11-21 07:58] LABS: ANION GAP 14.4 mmol/L (8-16); CALCIUM 8.4 mg/dL (8.5-10.1); CARBON DIOXIDE 23.6 mmol/L (21.0-32.0); CREATININE - SERUM 1.6 mg/dL (0.6-1.3)
[2018-11-21 10:36] VITALS: Ht 175.3 cm; Wt 88.5 kg
--- NOTE | 2018-11-21 12:16 | NUR ---
RESTING IN BED. FAMILY AT BS. NO C/O PAIN. CL IN REACH.
--- NOTE | 2018-11-21 13:26 | NUR ---
SHOWER TODAY PER OT.
[2018-11-21 15:56] VITALS: BP 104/59
[2018-11-21 16:05] VITALS: BP 112/59
--- NOTE | 2018-11-21 16:25 | NUR ---
NO CHANGE IN ASSESSMENT. NO C/O PAIN. CL IN REACH.
--- NOTE | 2018-11-21 19:45 | NUR ---
PT LYING IN BED. CL IN REACH. DENIES NEEDS OR PAIN AT THIS TIME. BED IN LOW SIDE RAILS X2. A/O X4. RESP EVEN AND UNLABORED. LUNGS CLEAR. BOWEL ACTIVE X4. WILL CONTINUE TO MONITOR. PT IS WANTING SOMETHING FOR SLEEP NOTE LEFT FOR
[2018-11-21 21:10] VITALS: BP 96/59
--- NOTE | 2018-11-21 23:26 | NUR ---
I have reviewed this patient and I concur with the Shift Assessment completed by the Licensed Practical Nurse today this shift.
--- NOTE | 2018-11-22 01:34 | NUR ---
PT RESTING QUIETLY. CL IN REACH. NO DISTRESS NOTED. WCTM
--- NOTE | 2018-11-22 04:34 | NUR ---
PT WAVED AT THIS NURSE WHILE WALKING BY ROOM. PT ASKED FOR CUP OF COFFEE. GAVE PT COFFEE AND DENIED FURTHER NEEDS. WCTM CL IN REACH
[2018-11-22 07:27] VITALS: BP 112/52
[2018-11-22 07:30] VITALS: BP 89/60
--- NOTE | 2018-11-22 08:00 | NUR ---
PT RESTING IN BED WITH VISITOR AT BEDSIDE EATING BREAKFAST TOLERATING WELL WILL MONITER
--- NOTE | 2018-11-22 18:26 | NUR ---
I have reviewed this patient and I concur with the Shift Assessment completed by the Licensed Practical Nurse today this shift.
--- NOTE | 2018-11-22 18:35 | NUR ---
PT RESTING IN BED WITH EYES OPEN CALL LIGHT IN REACH WILL MONITER
--- NOTE | 2018-11-22 19:40 | NUR ---
PT RESTING QUIETLY. CL IN REACH. NO DISTRESS NOTED. RESP EVEN AND UNLABORED. A/O X4. LUNGS CLEAR. BOWEL ACTIVE X4. PT AWOKE WHEN FLUSHING TOILET. EMPTIED 400CC OUT OF URINAL. PT DENIES NEEDS AT THIS TIME OR PAIN. BED IN LOW SIDE RAILS X2. DRESSING INTACT TO LEFT HIP. WILL CONTINUE TO MONITOR.
[2018-11-22 20:48] VITALS: BP 106/66
--- NOTE | 2018-11-22 21:28 | NUR ---
PT BS WAS 57 ORANGE JUICE WAS GIVEN. WAITED 20 MIN AND RECHECKED BS THIS TIME IT WAS 79. WALT CRACKERS WERE GIVEN TO PT. WILL CONTINUE TO MONITOR.
--- NOTE | 2018-11-22 23:03 | NUR ---
RECEIVED REPORT FROM OFF GOING NURSE ON PATIENTS CONDITION.
--- NOTE | 2018-11-22 23:09 | NUR ---
I have reviewed this patient and I concur with the Shift Assessment completed by the Licensed Practical Nurse today this shift.
--- NOTE | 2018-11-22 23:49 | NUR ---
PATIENT AWAKE AND SITTING IN WHEELCHAIR DRINKING COFFEE AND WATCHING TV. O2 AT 2L IN USE VIA NC. DENIES ANY FURTHER NEEDS AT THIS TIME. CALL LIGHT IN REACH.
--- NOTE | 2018-11-23 00:05 | NUR ---
ASSISTED PATIENT BACK TO BED FROM WHEELCHAIR. TOLD PATIENT TO MAKE SURE HE USES THE CALL LIGHT WHEN HE NEEDS TO GET UP. BED ALARM ON AND ACTIVATED. CALL LIGHT IN REACH.
--- NOTE | 2018-11-23 02:03 | NUR ---
PATIENT IS VERY RESTLESS AT THIS TIME. PATIENT IS ALERT AND ORIENTATED TO HISSELF ONLY AT THIS TIME. WCTM. CALL LIGHT IN REACH.
--- NOTE | 2018-11-23 03:11 | NUR ---
PATIENT RESTING QUIETLY WITH EYES CLOSED. O2 AT 2L IN USE VIA NC. BED ALARM ON AN ACTIVATED. RESPIRATIONS EVEN. NO S/S OF DISTRESS. CALL LIGHT IN REACH.
--- NOTE | 2018-11-23 06:00 | NUR ---
PATIENT BROUGHT TO NURSES DESK IN WHEELCHAIR. PATIENT REFUSES TO STAY IN BED AND CONTINUES TO TRY AND GET UP WITHOUT ASSISTANCE.
[2018-11-23 07:41] LABS: CALCIUM 8.8 mg/dL (8.5-10.1); CARBON DIOXIDE 24.9 mmol/L (21.0-32.0); CREATININE - SERUM 1.7 mg/dL (0.6-1.3); POTASSIUM - SERUM 3.9 mmol/L (3.5-5.1)
[2018-11-23 08:06] VITALS: BP 107/68
[2018-11-23 08:59] LABS: BASOPHILS 0.2 % (0-2); EOSINOPHILS 2.5 % (0-7); HEMATOCRIT 27.3 % (42.0-54.0); HEMOGLOBIN 9.1 g/dL (13.5-17.5); IMMATURE GRANULOCYTES 0.5 % (0-5); LYMPHOCYTES 15.8 % (15-50); MCH 29.6 pg (26.0-34.0); MCHC 33.3 g/dL (31.0-37.0); MCV 88.9 fL (80.0-100.0); MEAN PLATELET VOLUME 9.9 fL (7.4-10.4); MONOCYTES 10.6 % (2-11); NEUTROPHILS 70.4 % (40-80); RBC 3.07 10x6/uL (4.20-6.10); RDW 14.8 % (11.5-14.5); WBC 9.2 10x3/uL (4.8-10.8)
[2018-11-23 09:02] LABS: PLATELET COUNT 226 10x3/uL (130-400)
--- NOTE | 2018-11-23 12:55 | NUR ---
MAX ASST TO TRANSFER FROM TO BED. CALL LIGHT IN REACH
--- NOTE | 2018-11-23 15:19 | NUR ---
PATIENT ADMITTED TO REHAB FROM ACUTE FLOOR. PATIENT HAS NO HOME HEALTH OR DME AT THIS TIME. DR. SHAW IS PATIENT PCP. DISCHARGE PLANS ARE FOR PATIENT TO RETURN HOME WITH FAMILY. WILL CONTINUE TO FOLLOW WITH PATIENT AND WILL ASSIST WITH DISCHARGE NEEDS.
--- NOTE | 2018-11-23 19:00 | NUR ---
BEDSIDE REPORT COMPLETE. SITTING UP IN BED VISITING [facility] FAMILY AND FRIENDS. DENIES ANY NEEDS OR PAIN. NO SIGNS OF DISTRESS NOTED. CALL LIGHT WITHIN REACH, FALL PRECAUTIONS IN PLACE. WILL CONTINUE TO MONITOR
[2018-11-23 21:19] VITALS: BP 132/66
--- NOTE | 2018-11-23 23:33 | NUR ---
QUIET HOURS. LYING IN BED EYES CLOSED RESTING. RR EVEN AND UNLABORED. WILL CONTINUE TO MONITOR
--- NOTE | 2018-11-24 02:05 | NUR ---
LYING IN BED EYES CLOSED RESTING. RR EVEN AND UNLABORED. WILL CONTINUE TO MONITOR
--- NOTE | 2018-11-24 04:48 | NUR ---
LYING IN BED ON RIGHT SIDE EYES CLOSED RESTING. RR EVEN AND UNLABORED. WILL CONTINUE TO MONITOR
[2018-11-24 07:30] VITALS: BP 115/61
--- NOTE | 2018-11-24 10:05 | NUR ---
LAYING IN BED RESTING QUIETLY. DID NOT EAT MUCH BREAKFAST. DENIES INCREASED PAIN. CALL LIGHT IN REACH. BED IN LOWEST POSITION. SIDE RAILS UP X2.
[2018-11-24 19:10] VITALS: BP 101/62
--- NOTE | 2018-11-24 19:10 | NUR ---
BEDSIDE SHIFT REPORT COMPLETE. ASSISTED WITH MIN ASSIST TO RESTROOM. DENIES ANY PAIN OR OTHER NEEDS. FAMILY AT BEDSIDE NOTED. VS STABLE. NO SIGNS OF DISTRESS NOTED. CALL LIGHT WITHIN REACH, FALL PRECAUTIONS IN PLACE. WILL CONTINUE TO MONITOR
--- NOTE | 2018-11-25 00:48 | NUR ---
QUIET HOURS. LYING IN BED ON RIGHT SIDE EYES CLOSED RESTING. RR EVEN AND UNLABORED. WILL CONTINUE TO MONITOR
--- NOTE | 2018-11-25 03:39 | NUR ---
LYING IN BED ON RIGHT SIDE EYES CLOSED RESTING. NO SIGNS OF DISTRESS NOTED. WILL CONTINUE TO MONITOR
--- NOTE | 2018-11-25 06:22 | NUR ---
SITTING UP IN BED WATCHING MORNING NEWS DRINKING COFFEE. DENIES ANY NEEDS OR PAIN. EMPTIED 900ML CLEAR YELLOW URINE. WILL CONTINUE TO MONITOR
[2018-11-25 07:30] VITALS: BP 123/69
--- NOTE | 2018-11-25 12:00 | NUR ---
HAS BEEN UP, SHOWERED AND NOW VISITING WITH . NO S/S INFECTION TO LEFT HIP. DENIES NEEDS.
--- NOTE | 2018-11-25 18:31 | NUR ---
SITTING UP IN BED TALKING TO FAMILY. DENIES C/O INCREASED PAIN. CALL LIGHT IN REACH
--- NOTE | 2018-11-25 19:05 | NUR ---
BEDSIDE REPORT COMPLETE. SITTING UP IN BED ALERT AND ORIENTED X3. DENIES ANY NEEDS OR PAIN. NO SIGNS OF DISTRESS NOTED. CALL LIGHT WITHIN REACH, FALL PRECAUTIONS IN PLACE. WILL CONTINUE TO MONITOR
--- NOTE | 2018-11-25 19:40 | NUR ---
VERBAL ORDERS PER DR. ERNST ADMINISTER NICOTINE PATCH 14MCG UNSCHEDULED D/T PT PATCH FELL OFF THIS MORNING DURING SHOWER.
[2018-11-25 20:51] VITALS: BP 111/58
--- NOTE | 2018-11-26 00:55 | NUR ---
QUIET HOURS. LYING IN BED ON RIGHT SIDE EYES CLOSED RESTING. RR EVEN AND UNLABORED. WILL CONTINUE TO MONITOR
--- NOTE | 2018-11-26 02:56 | NUR ---
LYING IN BED ON LEFT SIDE EYES CLOSED RESTING. NO SIGNS OF DISTRESS NOTED. WILL CONTINUE TO MONITOR
--- NOTE | 2018-11-26 06:32 | NUR ---
SITTING UP IN BED DRINKING COFFEE. DENIES ANY NEEDS OR PAIN. NO SIGNS OF DISTRESS NOTED. FSBS 98.
[2018-11-26 07:03] LABS: BASOPHILS 0.4 % (0-2); EOSINOPHILS 2.7 % (0-7); HEMATOCRIT 29.3 % (42.0-54.0); HEMOGLOBIN 9.5 g/dL (13.5-17.5); IMMATURE GRANULOCYTES 0.3 % (0-5); LYMPHOCYTES 16.8 % (15-50); MCH 29.6 pg (26.0-34.0); MCHC 32.4 g/dL (31.0-37.0); MCV 91.3 fL (80.0-100.0); MEAN PLATELET VOLUME 9.5 fL (7.4-10.4); MONOCYTES 8.3 % (2-11); NEUTROPHILS 71.5 % (40-80); RBC 3.21 10x6/uL (4.20-6.10); WBC 10.5 10x3/uL (4.8-10.8)
[2018-11-26 07:06] LABS: PLATELET COUNT 341 10x3/uL (130-400)
[2018-11-26 07:13] LABS: ANION GAP 12.5 mmol/L (8-16); CALCIUM 9.3 mg/dL (8.5-10.1); CARBON DIOXIDE 28.8 mmol/L (21.0-32.0); CREATININE - SERUM 1.6 mg/dL (0.6-1.3); POTASSIUM - SERUM 4.3 mmol/L (3.5-5.1)
[2018-11-26 08:23] VITALS: BP 126/57
--- NOTE | 2018-11-26 15:12 | NUR ---
Nutrition Follow-up: Diet: Diabetic PO intake: 52% x 12 meals Meds: SSI, others reviewed Labs reviewed +BM Wt: 194# RD Following
--- NOTE | 2018-11-26 15:27 | NUR ---
SITTING UP IN WC. DENIES NEEDS OR C/O INCISION OPEN TO AIR. NO S/S INFECTION
--- NOTE | 2018-11-26 18:06 | NUR ---
SITTING UP IN BED TALKING TO . ATE BETTER SUPPER. INCISION STILL LOOKS GOOD WITH NO S/S INFECTION.
--- NOTE | 2018-11-26 21:08 | NUR ---
REST QUIETLY IN BED, CALL LIGHT IN REACH,
[2018-11-26 22:54] VITALS: BP 99/64
--- NOTE | 2018-11-27 01:30 | NUR ---
REST IN BED, NO S/S OF DISTRESS, CALL LIGHT IN REACH.
--- NOTE | 2018-11-27 04:01 | NUR ---
I have reviewed this patient and I concur with the Shift Assessment completed by the Licensed Practical Nurse today this shift.
[2018-11-27 08:22] VITALS: BP 93/51
--- NOTE | 2018-11-27 09:00 | NUR ---
PT AM MEDS ADMINISTERED. PT DENIES NEEDS. WCTM.
--- NOTE | 2018-11-27 17:44 | NUR ---
PT SITTING IN BED EATING DINNER, SPOUSE AT BEDSIDE, DENIES NEEDS. WCTM.
--- NOTE | 2018-11-27 19:30 | NUR ---
PT RESTING QUIETLY. EYES CLOSED. CL IN REACH. NO DISTRESS NOTED. WCTM RESP EVEN AND UNLABORED.
[2018-11-27 20:36] VITALS: BP 103/58
--- NOTE | 2018-11-27 20:45 | NUR ---
THIS NURSE WAS ADMINISTERING NIGHT MEDICATIONS AND PT WAS BEING SEXUAL INAPPROPRIATE WITH THIS NURSE. PT STATED "YOU CAN COME BACK LATER IF YOU WANT AND ILL CHANGE YOUR MOOD." THIS PT STATED THIS HE STARTED TO PULL HIS BLANKET DOWN AND PULL OUT HIS PENIS. THIS NURSE STATED "THAT IS INNAPPROPRIATE AND IM LEAVING" THIS NURSE LEFT THE ROOM AFTER MEDS WERE ADMINISTERED.
--- NOTE | 2018-11-28 04:17 | NUR ---
NIPPLE THREADER WENT INTO ROOM PT STATED "I HAVE SOME BUG BITES ON MY LEFT LEG" THIS NURSE AND NIPPLE THREADER ASSESSED BITES, ONE AREA THE SIZE OF A QUARTER HAD 3 BITES WITH WHITE HEADS AND THEN THE SECOND AREA WAS ABOUT 3CM IN LENGTH AND HAD ABOUT 6-8 BITES WITH WHITE HEADS. NOTE LEFT FOR DOC SUJATA. [facility]
--- NOTE | 2018-11-28 06:39 | NUR ---
ADMINISTERING MEDS THIS AM PT WAS BEING SEXUAL INAPPROPRIATE AGAIN AND STATED "WHY DIDNT YOU COME IN MY ROOM LAST NIGHT I WAS WAITING ON YOU. WE COULD HAVE TALKED AND PLAYED AND HAD SOME FUN." THIS NURSE ONCE AGAIN TOLD PT "THAT IS VERY INNAPPROPRIATE AND I WILL NOT ALLOW YOU TO TALK TO ME THAT WAY." PT APOLOGIZED. THIS NURSE LEFT ROOM CL IN REACH.
[2018-11-28 07:03] LABS: CALCIUM 9.1 mg/dL (8.5-10.1); CARBON DIOXIDE 28.2 mmol/L (21.0-32.0); CREATININE - SERUM 1.6 mg/dL (0.6-1.3); POTASSIUM - SERUM 4.2 mmol/L (3.5-5.1)
[2018-11-28 07:56] LABS: BASOPHILS 0.2 % (0-2); EOSINOPHILS 2.4 % (0-7); HEMATOCRIT 28.7 % (42.0-54.0); HEMOGLOBIN 9.4 g/dL (13.5-17.5); IMMATURE GRANULOCYTES 0.2 % (0-5); LYMPHOCYTES 16.3 % (15-50); MCH 29.7 pg (26.0-34.0); MCHC 32.8 g/dL (31.0-37.0); MCV 90.5 fL (80.0-100.0); MEAN PLATELET VOLUME 9.4 fL (7.4-10.4); MONOCYTES 6.3 % (2-11); NEUTROPHILS 74.6 % (40-80); PLATELET COUNT 399 10x3/uL (130-400); RBC 3.17 10x6/uL (4.20-6.10); RDW 14.9 % (11.5-14.5); WBC 10.5 10x3/uL (4.8-10.8)
[2018-11-28 08:02] VITALS: BP 116/64
--- NOTE | 2018-11-28 08:45 | NUR ---
PATIENT ALERT/ORIENT. SITTING UP IN BED. ATE BREAKFAST. GOOD APPETITE. CALL LIGHT WITHIN REACH. VOICES NO NEEDS. WILL CONTINUE WITH PLAN OF CARE
--- NOTE | 2018-11-28 09:37 | NUR ---
PATIENT IN REHAB ROOM. WORKING WITH OCCUPATIONAL THERAPIST
--- NOTE | 2018-11-28 11:25 | NUR ---
GLUCOSE LEVEL 130. NO SLIDING SCALE GIVEN PER ORDER
--- NOTE | 2018-11-28 11:41 | RHP ---
PATIENT: HELGA OLSON MEDICAL RECORD: [id number] ACCOUNT: [id number] LOCATION:[facility] : 50 ADMISSION DATE: 11/20/18 REHABILITATION HISTORY AND PHYSICAL EXAMINATION POST ADMISSION PHYSICIAN EXAMINATION DATE OF ADMISSION: 11/20/2018. ADMITTING DIAGNOSIS: Left subtrochanteric hip fracture. HISTORY OF PRESENT ILLNESS: The patient admitted after he was walking up some stairs when a dog jumped on him to give him a hug and he fell approximately 4 steps or 15 feet landing on his left hip and injured his right lower leg also. The patient actually sees Dr. Boogie as his PCP over in [place]. Family members reported that they tried to move him and he lost consciousness. His defibrillator apparently went off. He denied any of this actually happening. He has got a history of CVA in the past. He is blind in his right eye, got a history of cardiac defibrillator placement in the past, coronary artery disease, coronary artery stents. He has had coronary artery bypass grafting in the past. He is an everyday smoker. He denies any illicit drugs. On 11/17/2018, Dr. Ramirez saw this patient prior to surgery secondary to his history of ischemic cardiomyopathy. He underwent bypass grafting 15 years ago. He has had stents also placed. He had an angiogram 3 years ago. His recent echo confirmed a normal ejection fraction of 55% after being placed on medical therapy. He has not recently had any chest pain or angina. He is on Plavix because of a TIA in the past. He was cleared by cardiac for surgery. Dr. Batres performed a left hip intramedullary nailing on 11/17/2018. He is continuing to follow him for pain control. Also, he has had some urinary problems since this. The patient has been followed by the hospitalist here during his time. He has had some confusion some times. He has been irritated at times with staff and family. He had been pulling and tugging on his scans and IV tubing. He has had some acute blood loss anemia. The patient is clearing somewhat cognitively. CT of his head is negative. He has been participating with physical therapy, ambulating 3 feet with assist. Barriers to discharge include self-care deficits, telemetry, need to manage medications and comorbid conditions listed above. Prior to this fall, he was completely independent with ADLs and mobility requiring intensive inpatient therapy to get him back to his prior level of functioning. COMORBIDITIES: Include acute blood loss anemia, contusion of the right lower leg, type 2 diabetes, history of pacemaker defibrillator placement, stents and angioplasty, coronary artery bypass grafting, atrial fib, hyperlipidemia, cardiomyopathy, history of CVA, degenerative disc disease, prostate problems, depression and anxiety. PAST MEDICAL HISTORY: Significant for loss of vision in his right eye, diabetes, hypertension, coronary artery disease, degenerative disc disease, prostate problems, depression and anxiety. PAST SURGICAL HISTORY: Includes coronary artery bypass grafting, pacemaker and defibrillator placement. He has had stent placement. He has had a TURP and has had now surgery on his hip. ALLERGIES: WELLBUTRIN AND ALSO BRILINTA. CURRENT MEDICATIONS: Include Effexor he is on 150 mg daily. He is on Flomax HISTORY AND PHYSICAL [id number] WESLEY,HELGA 0.4 mg daily. He is on hydrochlorothiazide 12.5 mg daily, Plavix 75 mg daily, amiodarone 200 mg daily, Amaryl 4 mg daily. He is on carvedilol 12.5 mg b.i.d. with meals, Protonix 40 mg daily, Senna 2 tabs q.h.s., lisinopril 20 mg b.i.d. He is on a low-resistant sliding scale with Humalog. He is on Lipitor 80 mg q.h.s., aspirin 81 mg daily, Eliquis 2.5 mg b.i.d., OxyIR 5 mg q.6 hours p.r.n., DuoNeb updrafts, and [place] 5/325 one tab q.6 hours p.r.n. HABITS: He does have a history of tobacco use. No alcohol or illicit drug use. FAMILY HISTORY: Noncontributory. SOCIAL HISTORY: The patient hopes to return back home and get back to his prior level of functioning. Follow up with his PCP, Dr. Boogie. REVIEW OF SYSTEMS: GENERAL: He does complain of weakness and fatigue. HEENT: Denies cold, cough, or congestion. CARDIOVASCULAR: Denies any chest pain. PHYSICAL EXAMINATION: VITAL SIGNS: Stable, afebrile. GENERAL: Elderly gentleman in no acute distress, alert upon exam. HEENT: Normocephalic and atraumatic. Mucosa moist. NECK: Supple, with no lymphadenopathy. LUNGS: Clear in upper coyle. HEART: Irregular rate and rhythm. ABDOMEN: Soft, benign, and nondistended. Positive bowel sounds times 4. EXTREMITIES: No clubbing, cyanosis or edema. Postop area looks pretty good at this time. NEUROLOGIC: He does have noted 1/5 muscular strength in his proximal leg muscles and he has got 3/5 muscular strength in his upper extremities. LABORATORY DATA: White count is 8.6, H&H 9 and 26, and platelet count is 144. Sodium 140, potassium 4.0, BUN and creatinine of 23 and 1.6, and blood sugar is noted to be 101. ASSESSMENT: This is a 68-year-old gentleman admitted to the rehab with a working diagnosis of left subtrochanteric hip fracture status post open reduction internal fixation of this. The patient has potential to make improvement. We instituted the following multidisciplinary therapies including but not limited to physical, occupational, respiratory, speech, nutritional services, prosthetics and orthotics. Given his complex medical condition and risk for more complications, rehabilitation services cannot be provided at a low level of care such a skilled nurse facility. PLAN: 1. Admit to [facility] for an intensive inpatient therapy to include the following disciplines: A. Physical therapy to improve gait, all transfer skills and bed mobility to a modified independent level. B. Occupational therapy to improve activities of daily living to a modified independent level. C. Case management to assist with discharge planning and placement options. D. Nutrition to assist with nutritional needs. E. Rehabilitation nursing to assist in monitoring the patient's underlying HISTORY AND PHYSICAL [id number] WESLEYHELGA medical conditions and to assist with any type of bowel or bladder management. 2. The patient's current medications and medical care will be continued. 3. The patient will be placed on standard fall precautions. 4. We will watch his H&H closely and transfuse if necessary. 5. He is on multiple blood thinners. We will watch for any signs of bleeding. 6. I am going to follow up at noon today with our care team and employment evaluator/case manager and I will see again in the a.m. TRANSINT:[id number] Voice Confirmation ID: [id number] DOCUMENT ID: [id number] 11/26/2018 Edited for gil FIGUEROA. CAROLINA notes whether there has been none or any medical/functional change since admission: - No change since preadmission screen. CAROLINA attests patient continues to be appropriate for IRF: - Continues to be appropriate. ORESTES ERNST MD at 1141 CC: [id number] DICTATION DATE: 11/21/1843 FIRE DEPARTMENT MARINE ENGINEER: 11/21/18 0906 ADM IN [place] [id number] [place] [id number]
--- NOTE | 2018-11-28 19:52 | NUR ---
PATIENT RECEIVED SITTING UP IN BED. ASSESSMENT & VITAL SIGNS DONE. NO C/O PAIN OR DISTRESS. BED LOW. BEDSIDE TABLE & CALL LIGHT WITHIN REACH. WILL CONTINUE TO MONITOR.
[2018-11-28 20:06] VITALS: BP 93/57
--- NOTE | 2018-11-29 00:50 | NUR ---
I have reviewed this patient and I concur with the Shift Assessment completed by the Licensed Practical Nurse today this shift.
--- NOTE | 2018-11-29 01:55 | NUR ---
PATIENT TOILETED BY STAFF. C/O ALARM GOING OFF. PATIENT REQUEST TO SIGN ALARM WAIVER. PATIENT SIGNED BED ALARM WAIVER IN HIS CHART. WILL CONTINUE TO MONITOR.
--- NOTE | 2018-11-29 03:45 | NUR ---
PATIENT EYES CLOSED. RESPIRATIONS 18 & EVEN. BED LOW. CALL LIGHT WITHIN REACH. WILL CONTINUE TO MONITOR.
[2018-11-29 08:14] VITALS: BP 107/68
--- NOTE | 2018-11-29 20:00 | NUR ---
PATIENT RECIEVED SITTING UP IN BED. VISITING. ASSESSMENT & VITAL SIGNS DONE. NO C/O PAIN OR DISTRESS. INCISION TO LEFT HIP REAL ESTATE LISTING CONSULTANT. BED LOW. CALL LIGHT WITHIN RWEACH. WILL CONTINUE TO MONITOR.
[2018-11-29 23:05] VITALS: BP 105/44
--- NOTE | 2018-11-30 03:17 | NUR ---
I have reviewed this patient and I concur with the Shift Assessment completed by the Licensed Practical Nurse today this shift.
[2018-11-30 08:20] LABS: BASOPHILS 0.4 % (0-2); EOSINOPHILS 2.5 % (0-7); HEMATOCRIT 29.6 % (42.0-54.0); HEMOGLOBIN 9.5 g/dL (13.5-17.5); IMMATURE GRANULOCYTES 0.3 % (0-5); LYMPHOCYTES 19.4 % (15-50); MCH 29.6 pg (26.0-34.0); MCHC 32.1 g/dL (31.0-37.0); MCV 92.2 fL (80.0-100.0); MEAN PLATELET VOLUME 9.5 fL (7.4-10.4); MONOCYTES 6.7 % (2-11); NEUTROPHILS 70.7 % (40-80); PLATELET COUNT 396 10x3/uL (130-400); RBC 3.21 10x6/uL (4.20-6.10); RDW 15.1 % (11.5-14.5); WBC 10.4 10x3/uL (4.8-10.8)
[2018-11-30 08:28] LABS: ANION GAP 11.2 mmol/L (8-16); CALCIUM 9.1 mg/dL (8.5-10.1); CARBON DIOXIDE 27.7 mmol/L (21.0-32.0); CREATININE - SERUM 1.9 mg/dL (0.6-1.3); POTASSIUM - SERUM 3.9 mmol/L (3.5-5.1)
[2018-11-30 08:42] VITALS: BP 112/57
--- NOTE | 2018-11-30 09:12 | NUR ---
PT AM MEDS ADMINISTERED. PT DENIES NEEDS.W CTM.
--- NOTE | 2018-11-30 17:32 | NUR ---
PT EATING DINNER, LINDSEY NEEDS. WCTM.
--- NOTE | 2018-11-30 19:15 | NUR ---
PT IS RESTING IN BED WITH EYES CLOSED. AWOKE EASILY TO VERBAL STIMULI. ALERT AND ORIENTED X 3. DENIES ANY PAIN OR DISCOMFORT. INCISION TO LEFT HIP IS CDI. NO DRAINAGE NOTED. NO NEEDS VOICED. SR'S ARE UP X 2 IN BED. CALL LIGHT AND BEDSIDE TABLE ARE WITHIN EASY REACH.
[2018-11-30 20:44] VITALS: BP 115/93
--- NOTE | 2018-11-30 21:02 | NUR ---
PT IS RESTING IN BED DRINKING A CUP OF COFFEE. NO NEEDS VOICED.
--- NOTE | 2018-12-01 00:01 | NUR ---
RESTING IN BED WITH EYES CLOSED.
--- NOTE | 2018-12-01 04:01 | NUR ---
RESTING IN BED WITH EYES CLOSED. NO DISTRESS NOTED.
--- NOTE | 2018-12-01 06:55 | NUR ---
I have reviewed this patient and I concur with the Shift Assessment completed by the Licensed Practical Nurse today this shift.
[2018-12-01 08:00] VITALS: BP 121/64
--- NOTE | 2018-12-01 08:00 | NUR ---
PATIENT SITTING UP IN BED EATTING BREAKFAST. ALERT/ORIENT. CALL LIGHT WITHIN REACH. WILL CONTINUE WITH PLAN OF CARE
--- NOTE | 2018-12-01 10:18 | NUR ---
PATIENTS IN ROOM. HELPING PATIENT WITH SHOWER. THIS NURSE CHANGED LINENS ON BED WHILE PATIENT IN SHOWER.
--- NOTE | 2018-12-01 11:56 | NUR ---
GLUCOSE LEVEL 206. FOUR UNITS OF SLIDING SCALE INSULIN GIVEN PER ORDER
--- NOTE | 2018-12-01 18:00 | NUR ---
I have reviewed this patient and I concur with the Shift Assessment completed by the Licensed Practical Nurse today this shift.
--- NOTE | 2018-12-01 19:45 | NUR ---
PT RESTING IN BED WITH EYES OPEN. ALERT AND ORIENTED X 3. DENIES ACUTE PAIN OR DISCOMFORT AT THIS TIME. REQUESTED AND GIVEN A CUP OF COFFEE. SR'S ARE UP X 2 IN BED. CALL LIGHT AND BEDSIDE TABLE ARE WITHIN EASY REACH. PT HAS A BED ALARM WAIVER SIGNED.
--- NOTE | 2018-12-01 21:00 | NUR ---
PT UP IN WC PROPELLING SELF ABOUT THE HALLS, STATING HE SLEPT ALL DAY AND WASNT SLEEPY. HE REQUESTED A CUP OF COFFEE. I TOOK PT TO THE DINING AREA AND INSTRUCTED HIM TO HELP HIMSELF TO COFFEE, ANYTIME HE WAS UP IN HIS WC.
--- NOTE | 2018-12-02 00:03 | NUR ---
RESTING IN BED WITH EYES CLOSED.
--- NOTE | 2018-12-02 02:53 | NUR ---
I have reviewed this patient and I concur with the Shift Assessment completed by the Licensed Practical Nurse today this shift.
--- NOTE | 2018-12-02 06:19 | NUR ---
PT RESTING IN BED WITH EYES CLOSED. NO ACUTE DISTRESS NOTED.
[2018-12-02 08:14] VITALS: BP 100/67
--- NOTE | 2018-12-02 08:30 | NUR ---
PT AM MEDS ADMINSITERED. PT DENIES NEEDS. WCTM.
[2018-12-02 19:03] VITALS: BP 100/48
--- NOTE | 2018-12-02 19:38 | NUR ---
PT IS RESTING QUIETLY IN BED WITH EYES CLOSED. RESPS ARE EVEN AND UNLABORED. NO ACUTE DISTRESS NOTED.
--- NOTE | 2018-12-02 21:50 | NUR ---
PT RESTING IN BED DRINKING A CUP OF COFFEE. NO FURTHER NEEDS VOICED.
--- NOTE | 2018-12-03 00:14 | NUR ---
RESTING IN BED WITH EYES CLOSED.
--- NOTE | 2018-12-03 02:22 | NUR ---
I have reviewed this patient and I concur with the Shift Assessment completed by the Licensed Practical Nurse today this shift.
--- NOTE | 2018-12-03 06:05 | NUR ---
PT SITTING IN WC IN HIS ROOM DRINKING COFFEE. NO ACUTE DISTRESS NOTED.
[2018-12-03 07:26] LABS: ANION GAP 12.5 mmol/L (8-16); CALCIUM 9.8 mg/dL (8.5-10.1); POTASSIUM - SERUM 4.5 mmol/L (3.5-5.1)
[2018-12-03 07:32] LABS: BASOPHILS 0.6 % (0-2); EOSINOPHILS 2.4 % (0-7); HEMATOCRIT 30.6 % (42.0-54.0); HEMOGLOBIN 9.9 g/dL (13.5-17.5); IMMATURE GRANULOCYTES 0.2 % (0-5); LYMPHOCYTES 23.8 % (15-50); MCH 29.6 pg (26.0-34.0); MCHC 32.4 g/dL (31.0-37.0); MCV 91.6 fL (80.0-100.0); MEAN PLATELET VOLUME 9.6 fL (7.4-10.4); MONOCYTES 6.3 % (2-11); NEUTROPHILS 66.7 % (40-80); PLATELET COUNT 438 10x3/uL (130-400); RBC 3.34 10x6/uL (4.20-6.10); WBC 9.6 10x3/uL (4.8-10.8)
--- NOTE | 2018-12-03 08:33 | NUR ---
PT AM MEDS ADMINISTERED EXCEPT NICOTINE PATCH. WAITING FOR PHARMACY TO BRING NEW ORDERED PATCH. PHARMACY NOTIFIED.
[2018-12-03 09:00] VITALS: BP 94/55
--- NOTE | 2018-12-03 10:30 | NUR ---
ORDER HAS BEEN FAXED TO [facility] FOR A ROLLING WALKER . WILL CONTINUE TO FOLLOW WITH PATIENT.
--- NOTE | 2018-12-03 12:02 | NUR ---
Nutrition Follow-up: Diet: Diabetic PO intake: 92% x 6 meals Labs reviewed Significant meds: SSI, Senna, glimepiride Last BM 12/01/18 Wt: 195# (11/21/18) Meeting nutrition needs at this time. RD Following
--- NOTE | 2018-12-03 21:35 | NUR ---
REST IN BED. CALL LIGHT IN REACH.
[2018-12-03 22:12] VITALS: BP 98/60
--- NOTE | 2018-12-04 01:41 | NUR ---
REST IN BED, EYE CLOSE, CALL LIGHT IN REACH.
--- NOTE | 2018-12-04 04:07 | NUR ---
I have reviewed this patient and I concur with the Shift Assessment completed by the Licensed Practical Nurse today this shift.
--- NOTE | 2018-12-04 04:24 | NUR ---
REST IN BED, CALL LIGHT IN REACH.
[2018-12-04 08:10] VITALS: BP 100/49
[2018-12-04 20:27] VITALS: BP 105/58
--- NOTE | 2018-12-04 20:50 | NUR ---
A&O X 4. AMBULATED TO BATHROOM WITH WALKER, STANDBY ASSIST. DENIES PAIN AT THIS TIME. WILL CONTINUE TO MONITOR.
--- NOTE | 2018-12-05 02:53 | NUR ---
I have reviewed this patient and I concur with the Shift Assessment completed by the Licensed Practical Nurse today this shift.
--- NOTE | 2018-12-05 05:56 | NUR ---
OOB IN WHEELCHAIR IN [place]. A&O X 4. REQUESTS COFFEE. STATES HE GOT OOB TO CHAIR W/O DIFFICULTY. DENIES PAIN, FSBS 124. DENIES FURTHER NEEDS, WILL CONTINUE TO MONITOR.
[2018-12-05 07:36] LABS: BASOPHILS 0.6 % (0-2); EOSINOPHILS 2.1 % (0-7); HEMATOCRIT 29.1 % (42.0-54.0); HEMOGLOBIN 9.6 g/dL (13.5-17.5); IMMATURE GRANULOCYTES 0.1 % (0-5); LYMPHOCYTES 21.4 % (15-50); MCV 90.9 fL (80.0-100.0); MEAN PLATELET VOLUME 9.8 fL (7.4-10.4); MONOCYTES 6.4 % (2-11); NEUTROPHILS 69.4 % (40-80); PLATELET COUNT 399 10x3/uL (130-400); RDW 14.9 % (11.5-14.5)
[2018-12-05 07:45] LABS: ANION GAP 15.5 mmol/L (8-16); CALCIUM 9.6 mg/dL (8.5-10.1); CARBON DIOXIDE 23.7 mmol/L (21.0-32.0); CREATININE - SERUM 1.9 mg/dL (0.6-1.3); POTASSIUM - SERUM 4.2 mmol/L (3.5-5.1)
[2018-12-05 08:02] VITALS: BP 122/66
--- NOTE | 2018-12-05 08:41 | NUR ---
PATIENT SITTING UP IN BED TO EAT BREAKFAST. ALERT/ORIENT. CALL LIGHT WITHIN REACH. VOICES NO NEEDS AT THIS TIME. PLAN IS TO DISCHARGE HOME TODAY.
[2018-12-05] MEDS ORDERED: ELIQUIS2.5 MG PO (08:46)
[2018-12-05] MEDS ORDERED: GEODON20 MG PO (08:46)
[2018-12-05] MEDS ORDERED: HYDROCODON-ACE1 EAC7 PO (08:49)
--- NOTE | 2018-12-05 10:00 | NUR ---
SITTING UP IN CHAIR READY FOR DC HOME TODAY. AT BEDSIDE.
--- NOTE | 2018-12-05 10:42 | NUR ---
DISCHARGE INSTRUCTIONS GONE OVER WITH PATIENT AND HIS . PRESCRIPTION FOR PATIENT MEDICTION GIVEN TO PATIENTS . DISCHARGE MEDICATIONS CALLED INTO [facility].
--- NOTE | 2018-12-05 11:02 | NUR ---
PATIENT DISCHARGING HOME TODAY WITH FAMILY. [facility] WILL PROVIDE THERAPY AT HOME. [facility] HAS DELIVERED A ROLLING WALKER TO PATIENT. DR. SHAW 12/12/18 @ 3:15. PATIENT CHOIC EFORM AND IMFM FORMS SIGNED, COPY GIVEN TO SPOUSE AND FILED IN CHART. DSICHARGE INSTRUCTIONS WITH [employer] FAXED TO PCP, HOME HEALTH AND REVIEWED WITH PATIENT AND FAMILY.
--- NOTE | 2018-12-05 11:42 | NUR ---
PATIENT HELPED UP TO CAR BY THIS NURSE. D/C/ HOME WITH FAMILY
--- NOTE | 2019-01-01 10:09 | DS ---
PATIENT:HELGA OLSON :50 MEDICAL RECORD: [id number] DISCHARGE SUMMARY ADMISSION DATE: 11/20/18 DISCHARGE DATE: 12/05/18 This is a discharge dated 12/05/2018 from inpatient rehabilitation. PRIMARY DIAGNOSIS: Decreased functional ability and ability to provide activities of daily living secondary to a left hip fracture status post repair. SECONDARY DIAGNOSES: 1. Coronary artery disease. 2. Atrial fibrillation. 3. History of implanted defibrillator. 4. Hyperlipidemia. 5. Degenerative disc disease. 6. Diabetes type 2. 7. Acute blood loss anemia. 8. Depression/anxiety. 9. History of cerebrovascular accident. HOSPITAL COURSE: Full H&P is located elsewhere on the chart on this 68-year-old male who was admitted to inpatient rehab for physical therapy and occupational therapy to improve gait, transfer skills, bed mobility, and activities of daily living to a modified independent level. He was evaluated by PT, OT and ST and their plans of care were followed. He required usp care for observation and assessment, medication administration, as well as wound care and monitoring of surgical incision. Electrolytes were managed by protocol. Fingerstick blood sugars were monitored throughout his hospital stay with appropriate adjustment in medications as needed. He had supplemental oxygen to keep sats greater than 90% and had nebulized medications for respiratory support. He developed some confusion, felt to be related to medications that did improve with adjustment. He was cooperative with therapies, progressing towards goals. Case management was involved for discharge planning. He was considered stable for discharge on 12/05/2018, having met all of his OT and ST goals and 4/5 PT goals with recommendations for continued therapy at discharge. DISCHARGE MEDICATIONS: As per discharge medication reconciliation. DISCHARGE DISPOSITION: The patient is discharged home. He will continue his current diet and level of activity. He will have Care [facility] for continued nursing, PT and OT through home health. [facility] and will follow up with primary care and specialists as directed. At least 30 minutes was spent in this discharge activity. TRANSINT:[id number] Voice Confirmation ID: [id number] DOCUMENT ID: [id number] Dictated By: NICK ELLIOTT I have interviewed/examined the above patient and agree with these documented findings. DISCHARGE SUMMARY REPORT [id number] WESLEYHELGA,ORESTES TOBIN MD at 1011 at 1009 CC: [id number] DICTATION DATE: 12/30/181825 LITIGATION PARTNER: 12/31/18 08 DIS IN 12/05/18 [facility] [address] [place] [address]
== END 2018-12-05 11:45 | disposition home health service (06) | DRG 560 ==
LOC: D.REHAB 16:14
PROVIDERS: ADMIT Emergency Medicine; ATTEND Emergency Medicine
DX: S72.092D Other fracture of head and neck of left femur, subsequent encounter for closed fracture with routine healing (principal); D62 Acute posthemorrhagic anemia; I42.9 Cardiomyopathy, unspecified; W19.XXXD Unspecified fall, subsequent encounter; S80.11XD Contusion of right lower leg, subsequent encounter; E11.9 Type 2 diabetes mellitus without complications; Z95.5 Presence of coronary angioplasty implant and graft; Z95.1 Presence of aortocoronary bypass graft; I48.91 Unspecified atrial fibrillation; E78.5 Hyperlipidemia, unspecified; F41.8 Other specified anxiety disorders; F17.200 Nicotine dependence, unspecified, uncomplicated; Z95.810 Presence of automatic (implantable) cardiac defibrillator; I10 Essential (primary) hypertension

== ENCOUNTER → 2019-05-06 08:32 | Outpatient (CLI) | payer MEDICARE, OTHER ==
[2018-11-21 10:36] VITALS: BMI 28.8
[~2019-05-06 08:32] MED LIST changes: +GEODON20 MG PO
--- NOTE | 2019-05-09 12:54 | ST ---
PATIENT:HELGA OLSON MEDICAL RECORD: [id number] SEX: M LOCATION:[facility] ORDER #: ADMISSION DATE: 05/06/19 AGE OF PATIENT: 68 REFERRING PHYSICIAN: INTERPRETING PHYSICIAN: NELLI QUINONES MD DATE OF SERVICE: 05/06/2019 Nuclear Stress Test INDICATIONS: Coronary artery disease, shortness of breath, angina, abnormal ECG, hypertension. He was exercised on standard Lexiscan protocol with 33 mCi of sestamibi injected at peak stress, 10 mCi used previously for rest images. FINDINGS: Gated SPECT reveals a decreased ejection fraction at 38% with decreased thickening and brightening throughout the inferior and lateral segments. SPECT Imaging: Cardiolite was used as myocardial perfusion agent. There is a large fixed perfusion defect inferiorly and laterally compatible with previous inferolateral myocardial infarction includes the basal, mid, apical, inferior segments as well as the mid lateral, and basal lateral segments. There is no evidence of reversibility. The remaining segments have homogeneous uptake at rest and stress. OVERALL IMPRESSION: This is a stable nuclear stress test, large fixed perfusion defect inferiorly and laterally from a previous myocardial infarction but no ongoing ischemia, ejection fraction decreased at 38%. TRANSINT:[id number] Voice Confirmation ID: [id number] DOCUMENT ID: [id number] NELLI QUINONES MD at 1254 CC: [id number] DICTATION DATE: 05/07/19 1230 STENCILER: 05/08/19 0426 DEP CLI 05/06/19 [place] [id number]
== END | disposition home or self-care (01) ==
LOC: D.HCCARDIO 08:32
PROVIDERS: ATTEND Internal Medicine Interventional Cardiology
DX: I25.10 Atherosclerotic heart disease of native coronary artery without angina pectoris (principal)

== ENCOUNTER → 2019-06-20 09:11 | Outpatient (CLI) | payer MEDICARE, OTHER ==
[2018-11-21 10:36] VITALS: BMI 28.8
--- NOTE | 2019-06-24 11:19 | EC ---
PATIENT:HELGA OLSON DATE OF SERVICE: 06/20/19 SEX: M MEDICAL RECORD: [id number] DATE OF : 50 [facility]ATION:[facility] AGE OF PATIENT: 68 ADMISSION DATE: 06/20/19 REFERRING PHYSICIAN: INTERPRETING PHYSICIAN: YANN RODRIGES MD ECHOCARDIOGRAM REPORT ECHO CHARGES 4 ECHO COMPLETE Date: 06/20/19 CLINICAL DIAGNOSIS: CAD/ HX OF MITRAL REGURG ICD/CABG/CHF/AFIB/HTN ECHOCARDIOGRAPHIC MEASUREMENTS (adult normal given) AC root (d.<3.7cm) 3.8 cm LV Septum d (<1.2 cm> 1.3 cm Valve Excursion 1.9 cm LV Septum (systole) 1.4 cm Left Atria (s.<4.0cm> 3.7 cm LVPW d(<1.2cm) 1.3 cm RV (d.<2.3cm) 2.9 cm LVPW (sytole) 1.8 cm LV diastole(<5.6CM) 5.9 cm MV E-F(>70mm/sec) cm LV systole 4.0 cm LVOT Diameter 2.0 cm MV exc.(>10mm) 1.4 cm Est.ejection fraction (50-75%) % DOPPLER: LVIT cm/sec A 64.0 cm/sec E 44.0 cm/sec LA cm/sec RVSP 22 mmHg LVOT 87 cm/sec AOP1/2T m/s Asc. Ao 118 cm/sec RVOT 76 cm/sec RA cm/sec PA cm/sec AV Gradient Peak 5.60 mmHg AV Mean 3.10 mmHg AV Area 2.4 cm MV Gradient Peak 2.61 mmHg MV Mean 1.14 mmHg MV Area cm COMMENTS: Gifts Officer: 2 MARY GOODMAN Tub Rider: 3 Dr. Haddad TAPE# PACS Pericardial Effusion N DATE OF SERVICE: Adequate 2D, color flow imaging, spectral Doppler, and M-Mode. Mild LVH. LV internal dimension is normal. Wall motion is normal. He is mildly globally hypokinetic with mildly reduced EF. Estimated EF 40% to 45%. Aortic valve is sclerosed without evidence of stenosis by Doppler interrogation. Left atrium is normal at 3.7 cm. Mitral valve shows no prolapse. Mild MR. Right-sided chambers are grossly normal. Trace TR. Incidental note is made of ICD in RV apex. ECHOCARDIOGRAM REPORT [id number] HELGA OLSON TRANSINT:[id number] Voice Confirmation ID: [id number] DOCUMENT ID: [id number] YANN RODRIGES MD at 1119 CC: [id number] DICTATION DATE: 06/20/19 1601 METAL NUMERICAL TOOL PROGRAMMER: 06/20/19 2353 DEP CLI 06/20/19 [place] [id number] [place] [address]
== END | disposition home or self-care (01) ==
LOC: D.HCCECHO 09:11
PROVIDERS: ATTEND Internal Medicine Interventional Cardiology
DX: I25.10 Atherosclerotic heart disease of native coronary artery without angina pectoris (principal)

== ENCOUNTER 2019-09-13 16:27 | Emergency (ER) | payer MEDICARE, OTHER ==
[~2019-09-13] VITALS: Ht 175.3 cm; Wt 81.8 kg
[2019-09-13 16:59] VITALS: Ht 175.3 cm; Wt 81.8 kg
[2019-09-13 20:26] VITALS: BP 133/84
== END 2019-09-13 20:12 | disposition home or self-care (01) ==
LOC: D.ER 16:27
DX: G25.2 Other specified forms of tremor (principal); Z86.73 Personal history of transient ischemic attack (TIA), and cerebral infarction without residual deficits; E11.9 Type 2 diabetes mellitus without complications; I10 Essential (primary) hypertension; Z95.0 Presence of cardiac pacemaker; Z72.0 Tobacco use; Z79.84 Long term (current) use of oral hypoglycemic drugs

== ENCOUNTER 2019-09-24 16:45 | Inpatient (IN) | payer MEDICARE, OTHER ==
[~2019-09-24] VITALS: Ht 175.3 cm; Wt 82.3 kg
--- NOTE | ~2019-09-24 | EC ---
PATIENT:HELGA OLSON DATE OF SERVICE: 09/24/19 SEX: M MEDICAL RECORD: [id number] DATE OF : 50 LOCATION:D.[facility] AGE OF PATIENT: 69 ADMISSION DATE: 09/24/19 REFERRING PHYSICIAN: INTERPRETING PHYSICIAN: YANN RODRIGES MD ECHOCARDIOGRAM REPORT ECHO CHARGES 4 ECHO COMPLETE Date: 09/25/19 CLINICAL DIAGNOSIS: POSSIBLE CVA ECHOCARDIOGRAPHIC MEASUREMENTS (adult normal given) AC root (d.<3.7cm) 3.3 cm LV Septum d (<1.2 cm> 0.8 cm Valve Excursion 1.7 cm LV Septum (systole) 1.3 cm Left Atria (s.<4.0cm> 3.4 cm LVPW d(<1.2cm) 1.4 cm RV (d.<2.3cm) 2.7 cm LVPW (sytole) 1.8 cm LV diastole(<5.6CM) 6.3 cm MV E-F(>70mm/sec) cm LV systole 4.8 cm LVOT Diameter 2.1 cm MV exc.(>10mm) cm Est.ejection fraction (50-75%) % DOPPLER: LVIT cm/sec A 68 cm/sec E 33 cm/sec LA cm/sec RVSP 15.3 mmHg LVOT 75 cm/sec AOP1/2T m/s Asc. Ao 85 cm/sec RVOT 46 cm/sec RA cm/sec PA 83 cm/sec AV Gradient Peak 2.9 mmHg AV Mean 1.6 mmHg AV Area 3.4 cm MV Gradient Peak 3.2 mmHg MV Mean 1.3 mmHg MV Area cm COMMENTS: Hris Specialist: Julián SCHMIDT Websphere Consultant: 3 Dr. Haddad TAPE# PACS Pericardial Effusion N DATE OF SERVICE: Adequate 2D, color flow imaging, spectral Doppler, and M-Mode. No LVH. LV internal dimensions are normal. Wall motion is normal. EF is greater than or equal to 55%. Aortic valve is tricuspid. No evidence of stenosis by Doppler interrogation. Left atrium is normal. Mitral valve shows no prolapse. Trace MR. Right-sided chambers are grossly normal. Trace TR. TRANSINT:[id number] Voice Confirmation ID: [id number] DOCUMENT ID: [id number] ECHOCARDIOGRAM REPORT [id number] WESLEY,HELGAYANN CRUM MD CC: [id number] DICTATION DATE: 09/26/19819 FIRE BEHAVIOR ANALYST: 09/26/19837 ADM IN [place] [id number] [place] [id number]
[2019-09-24] MEDS ORDERED: BACLOFEN10 MG PO ×2 (16:50→23:22)
[2019-09-24 17:35] LABS: BASOPHILS 0.3 % (0-2); EOSINOPHILS 1.8 % (0-7); HEMATOCRIT 48.2 % (42.0-54.0); HEMOGLOBIN 16.1 g/dL (13.5-17.5); IMMATURE GRANULOCYTES 0.1 % (0-5); LYMPHOCYTES 24.5 % (15-50); MCH 31.4 pg (26.0-34.0); MCHC 33.4 g/dL (31.0-37.0); MCV 94.1 fL (80.0-100.0); MEAN PLATELET VOLUME 10.2 fL (7.4-10.4); MONOCYTES 5.8 % (2-11); NEUTROPHILS 67.5 % (40-80); PLATELET COUNT 197 10x3/uL (130-400); RBC 5.12 10x6/uL (4.20-6.10); WBC 9.7 10x3/uL (4.8-10.8)
[2019-09-24 17:42] LABS: APTT 29.1 SECONDS (22.8-39.4); INR 0.94 (0.85-1.17); PROTIME 12.6 SECONDS (11.6-15.0)
--- NOTE | 2019-09-24 17:42 | NUR ---
URINE SENT TO THE LAB.
[2019-09-24 17:51] LABS: BILIRUBIN NEGATIVE (NEGATIVE); GLUCOSE 50 mg/dL (NEGATIVE); KETONE NEGATIVE (NEGATIVE); NITRITE NEGATIVE (NEGATIVE); UROBILINOGEN NORMAL (NORMAL)
[2019-09-24 17:54] LABS: CALC OSMOLALITY 287 mosm/kg (275-300); CARBON DIOXIDE 26.9 mmol/L (21.0-32.0); CHLORIDE - SERUM 104 mmol/L (98-107); CREATININE - SERUM 1.7 mg/dL (0.6-1.3); GLUCOSE 231 mg/dL (74-106); POTASSIUM - SERUM 3.8 mmol/L (3.5-5.1); SODIUM 139 mmol/L (136-145); UREA NITROGEN 22 mg/dL (7-18); eGFR NON AFRICAN AMERICAN 43 mL/min (90-120)
[2019-09-24 17:59] LABS: ALBUMIN 3.3 g/dL (3.4-5.0); ALKALINE PHOSPHATASE 111 U/L (30-120); ALT (SGPT) 30 U/L (10-68); BILIRUBIN - TOTAL 0.27 mg/dL (0.2-1.3); CKMB 1.1 U/L (0.0-3.6); CREATINE KINASE 59 UL (21-232); MAGNESIUM - SERUM 1.6 mg/dL (1.8-2.4); PROTEIN - SERUM 7.1 g/dL (6.4-8.2); TROPONIN-I 0.044 ng/mL (0.000-0.060)
[2019-09-24 18:30] VITALS: BP 130/77
[2019-09-24 19:00] VITALS: BP 119/79
--- NOTE | 2019-09-24 19:15 | NUR ---
REPORT TO SRI GAONA.
[2019-09-24 19:39] VITALS: BP 121/82
[2019-09-24 21:55] VITALS: BP 125/90
[2019-09-24 23:41] VITALS: BP 123/70; BMI 27.3
[2019-09-25] VITALS: BP 123/70
[2019-09-25 04:00] VITALS: BP 137/75
[2019-09-25 06:37] LABS: BASOPHILS 0.2 % (0-2); EOSINOPHILS 1.8 % (0-7); HEMATOCRIT 45.5 % (42.0-54.0); HEMOGLOBIN 14.8 g/dL (13.5-17.5); IMMATURE GRANULOCYTES 0.2 % (0-5); LYMPHOCYTES 23.6 % (15-50); MCH 30.6 pg (26.0-34.0); MCHC 32.5 g/dL (31.0-37.0); MCV 94.2 fL (80.0-100.0); MEAN PLATELET VOLUME 10.4 fL (7.4-10.4); MONOCYTES 7.7 % (2-11); NEUTROPHILS 66.5 % (40-80); PLATELET COUNT 192 10x3/uL (130-400); RBC 4.83 10x6/uL (4.20-6.10); RDW 14.1 % (11.5-14.5); WBC 8.2 10x3/uL (4.8-10.8)
[2019-09-25 07:11] LABS: ALBUMIN 3.1 g/dL (3.4-5.0); ANION GAP 8.2 mmol/L (8-16); BILIRUBIN - TOTAL 0.25 mg/dL (0.2-1.3); CALCIUM 8.8 mg/dL (8.5-10.1); CARBON DIOXIDE 28.8 mmol/L (21.0-32.0); CREATININE - SERUM 1.4 mg/dL (0.6-1.3); PROTEIN - SERUM 6.7 g/dL (6.4-8.2)
--- NOTE | 2019-09-25 07:34 | HP ---
PATIENT: HELGA OLSON MEDICAL RECORD: [id number] ACCOUNT: [id number] LOCATION:D.MS [id number] : 50 ADMISSION DATE: 09/24/19 PCP: RU SHAW MD HISTORY AND PHYSICAL EXAMINATION DATE OF ADMISSION: 09/24/2019 CHIEF COMPLAINT: Left arm and leg weakness with spasms, worsening over the last week, multiple falls. HISTORY OF PRESENT ILLNESS: This is a 69-year-old white male who had had a stroke about 2 years ago with little residual. 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 He was seen in the ER on 09/13/2019, for increasing leg weakness, spasms. He had a CT of the head done then that showed old lacunar infarct and left thalamus and right internal capsule. He had lab done back then and it was all fairly stable for him. He was discharged home. He saw Dr. Dc on 09/16/2019, and was diagnosed with the myoclonus and started on baclofen then, but is brought in today by his for more leg weakness, spasms and multiple falls at home. In the ED, his sugar was a little elevated at 231. Chest x-ray showed development of a 3 cm mass in the left lower lobe just lateral to the left hilum. CT of the head compared to the one done on 09/13/2019, showed subacute ischemic infarct and anterior, superior, and medial right frontal lobe areas. The old lacunar infarcts were also seen. CT of the chest with contrast was also done, it showed 5 cm x 3.9 cm left lower lobe lesion with air that was concerning for malignancy. He is admitted for further evaluations. PAST MEDICAL AND SURGICAL HISTORY: Again, stroke about 2 years ago with Myoclonus diagnosis recently by Dr. Dc, non-insulin dependent diabetes, hypertension, history of NH, history of atrial fibrillation, left proximal femur fracture, November of last year, and he had iron deficient anemia, has been followed by Dr. Chris Elmore for that. Further review of records done through [facility] at [place] shows that he was diagnosed with non-small cell lung cancer and is followed by Dr. Elmore for that. He did not have surgery because he would not sign a piece of paper stating that he would definitely quit smoking, so the surgeon would not do the procedure. He did undergo CT-guided ablation of this lung cancer on 06/13/2019, by Dr. Hidalgo at [facility] and just had a repeat CT of the chest without contrast week ago yesterday at [place], copy of that is in patient's chart now. PAST SURGICAL HISTORY: Pacemaker/defibrillator, coronary stents, coronary artery bypass graft, TURP, back surgery, intramedullary nail to the left femur by Dr. Batres last year. ALLERGIES: BUPROPION AND BRILINTA. HOME MEDICATIONS: Venlafaxine XR 150 once a day, carvedilol 12.5 twice a day, Plavix 75 mg once a day, glimepiride 4 mg once a day, baclofen 10 mg t.i.d., amiodarone 200 mg once a day, and atorvastatin 80 mg once a day. SOCIAL HISTORY: He is retired from [employer]. , lives with his . FAMILY HISTORY: There is diabetes, heart disease and some sort of neurologic disorder in his family. HISTORY AND PHYSICAL [id number] HELGA OLSON HABITS: The patient continues to smoke about a pack of cigarettes a day. No alcohol or drugs. REVIEW OF SYSTEMS: GENERAL: No major weight changes. HEENT: No particular sinus or allergy problems. RESPIRATORY: His x-rays show he does have some emphysema, but he is on no medicines for that. CARDIAC: See above history. He is now followed by Dr. Haddad. GASTROINTESTINAL: No significant problems there. GENITOURINARY: Has a history of TURP for BPH. MUSCULOSKELETAL: He has had back surgery. NEUROLOGICAL: He has the mild clonus followed by Dr. Dc. PSYCHIATRIC: He has some depression/anxiety. PHYSICAL EXAMINATION: VITAL SIGNS: Today, temperature 97.3, pulse 73, respirations 20, blood pressure 121/82, O2 sat 98%. GENERAL: He is awake and alert. He appears comfortable in bed. is at bedside in no acute distress. HEENT: Grossly within normal limits. NECK: Supple. No JVD or bruit. HEART: Regular rate and rhythm. LUNGS: Clear. ABDOMEN: Soft, flat, nontender. EXTREMITIES: He has weakness on the left leg and mild left arm weakness. LABORATORY DATA: Urinalysis is normal. CBC is normal. Basic metabolic panel is okay except BUN a little elevated at 22, creatinine is 1.7, which is about his baseline. His sugar is 231. Liver functions are normal. INR 0.94, magnesium little bit low at 1.6. Troponin 0.044. Chest x-ray shows no acute cardiopulmonary disease, but there has been no development of a 3 cm mass lateral to the left hilum since last chest x-ray done in this facility. A CT of the head compared with CT of the head done on 09/13/2019, showed subacute ischemic infarct in the anterior and medial right frontal lobe and old lacunar infarcts in the left thalamus and right internal capsule. CT of the chest with contrast was done showing 5 cm x 3.9 cm left lower lobe lesion with air since November of 2018 This is concerning for malignancy; however, see above past medical history to catch up on all that. ASSESSMENT: 1. Subacute cerebrovascular accident with left-sided weakness. 2. Old cerebrovascular accident. 3. Myoclonus. 4. Left lung mass, treated with a CT-guided ablation on 06/13/2019, by Dr. Hidalgo at [facility]. PLAN: We will consult Dr. Dc. We will consult Dr. Bryan Elmore. Get a carotid Doppler ultrasound, physical therapy/occupational therapy. No MRIs as he has a defibrillator. We will start Lovenox and Pepcid. Other tests or procedures as warranted. TRANSINT:[id number] Voice Confirmation ID: [id number] DOCUMENT ID: [id number] HISTORY AND PHYSICAL [id number] HELGA OLSON WILLIAM MD at 0734 CC: [id number] DICTATION DATE: 09/24/192133 DIRECTOR SALES: 09/25/19 0127 ADM IN [facility] [address] [place] [address]
--- NOTE | 2019-09-25 07:36 | NUR ---
ALERT AND ORENTED ABLE TO VOICE NEEDS AND WANTS TO STAFF. IV TO LEFT FORE ARM IN PLACE. ON ROOM AIR AT BEDSIDE. TELEMETRY IN PLACE 55 SB. CALL LIGHT IN REACH NO S/S OF DISTRESS
--- NOTE | 2019-09-25 08:06 | NUR ---
CONSULTING MADELINE GANDARA ER NURSE REPORTED THAT HE HAD BEED CONTACTED WHAIL IN ER.
[2019-09-25 09:05] VITALS: BP 143/89
--- NOTE | 2019-09-25 09:52 | NUR ---
PT ALERT X 4. BREATH SOUNDS CLEAR BILAT. TELEMETRY IN PLACE. IV TO LEFT FOREARM, PATENT, DRESSING CDI. PT REPORTING NO PAIN AT THIS TIME. AT BEDSIDE. BED LOW, CALL LIGHT IN REACH. NO OTHER NEEDS AT THIS TIME.
[2019-09-25 12:34] VITALS: BP 122/88
[2019-09-25 13:30] VITALS: BMI 28.1
[2019-09-25 16:29] VITALS: Ht 175.3 cm; Wt 82.3 kg
[2019-09-25 18:01] VITALS: BP 96/52
--- NOTE | 2019-09-25 19:10 | NUR ---
LYING IN BED ON CELL PHONE. ALERT AND ORIENTED X4. RESP EVEN AND NONLABORED. NEURO CHECKS WNL. NO DEFICITS NOTED. SCDS OFF. SALINE LOCK NOTED TO LT FOREARM BLIND IN RT EYE. DENIES PAIN. TELEMETRY SHOWS SR WITH RATE OF 64. BED AND CIARA ALARM ON FOR PT SAFETY. CL IN REACH.
[2019-09-25 20:00] VITALS: BP 125/85
[2019-09-26] VITALS: BP 142/83
--- NOTE | 2019-09-26 03:54 | NUR ---
HAS SLEPT WELL THIS SHIFT. AT BEDSIDE. CL IN REACH. NO DISTRESS.
[2019-09-26 04:00] VITALS: BP 136/70
[2019-09-26 04:18] LABS: BASOPHILS 0.4 % (0-2); EOSINOPHILS 1.5 % (0-7); HEMATOCRIT 47.3 % (42.0-54.0); HEMOGLOBIN 15.2 g/dL (13.5-17.5); IMMATURE GRANULOCYTES 0.2 % (0-5); LYMPHOCYTES 21.7 % (15-50); MCH 30.1 pg (26.0-34.0); MCHC 32.1 g/dL (31.0-37.0); MCV 93.7 fL (80.0-100.0); MEAN PLATELET VOLUME 10.2 fL (7.4-10.4); MONOCYTES 6.4 % (2-11); NEUTROPHILS 69.8 % (40-80); PLATELET COUNT 198 10x3/uL (130-400); RBC 5.05 10x6/uL (4.20-6.10); WBC 8.5 10x3/uL (4.8-10.8)
[2019-09-26 04:35] LABS: ANION GAP 7.8 mmol/L (8-16); CALCIUM 9.4 mg/dL (8.5-10.1); CARBON DIOXIDE 30.2 mmol/L (21.0-32.0); CHOL - HDL RATIO 5.7 ratio (2.3-4.9); CREATININE - SERUM 1.6 mg/dL (0.6-1.3); LDL-HDL RATIO 4.1 ratio (1.5-3.5)
[2019-09-26 08:00] VITALS: BP 145/77
[2019-09-26 12:01] VITALS: BP 110/64
--- NOTE | 2019-09-26 14:18 | NUR ---
PT A&O X4, SITTING UP IN BED. PT STATES PAIN 0/10. LEFT FOREARM SALINE LOCKED PIV, PATENT. PT HAS PACEMAKER AND H/O CVA AND STENTS. TELEMERTY, NORMAL SINUS RYTHUM, 64 BPM. PT SCDS ARE ON. PT IS BLIND IN RIGHT EYE. PT STATES HE STILL HAS WEAKNESS ON HIS LEFT SIDE. HE NEEDS ONE PERSON ASSIST. HE IS USING THE BEDSIDE COMODE OR URINAL. PT REQUESTED NICOTINE PATCH, PROVIDED. PT RESTING COMFORTABLY, DENIES NEEDS. BED LOW, CL IN REACH. WILL CONTINUE TO MONITOR.
[2019-09-26 17:03] VITALS: BP 139/81
[2019-09-26 20:00] VITALS: BP 120/75
--- NOTE | 2019-09-26 20:45 | NUR ---
LYING IN BED. CONFUSED. STATES, "HOW DID YOU KNOW WHERE I WAS?" ORIENTED TO SELF ONLY. ATTEMPTED TO REORIENT. TELEMETRY SHOWS SR WITH RATE OF 65. SCDS IN USE BILAT. BLIND IN RT EYE. NEURO CHECK WNL EXCEPT FOR CONFUSION. SALINE LOCK NOTED TO LT FOREARM. USES URINAL. CIARA ALARM IN USE. DENIES PAIN. SR ELEVATED X2. CL IN REACH.
[2019-09-27 03:00] VITALS: BP 122/98
--- NOTE | 2019-09-27 03:55 | NUR ---
RESTED WELL TONIGHT. NO DISTRESS. CIARA ON. CL IN REACH.
[2019-09-27 04:00] VITALS: BP 137/71
[2019-09-27 08:00] VITALS: BP 127/82
--- NOTE | 2019-09-27 09:30 | NUR ---
PT RESTING IN BED WITH SPOUSE AT BEDSIDE WATCHING TV. RESP EVEN AND UNLABORED. DENIES PAIN AT THIS TIME. SALINE LOC TO LEFT FOREARM INTACT, SITE WITHOUT REDNESS OR EDEMA. DENIES FURTHER NEEDS AT THIS TIME. CL WITHIN REACH. ENCOURAGED TO CALL WITH NEEDS. CONTINUE POC
--- NOTE | 2019-09-27 10:50 | NUR ---
MRI BRAIN ORDERED ON PATIENT. HE HAS A NON COMPATIBLE PACEMAKER/DEFIBRILLATOR. DELTA PARKER'S RN WAS NOTIFIED AND EXAM WAS CANCELLED.
[2019-09-27 11:00] VITALS: BP 126/64
--- NOTE | 2019-09-27 14:03 | NUR ---
Nutrition follow-up: Diet: Regular Pt with some confusion per nurse Unsure of po intake at this time. Labs reviewed WT: 190# Will continue to provide food choices and honor food preferences. Will offer nutritional supplements. RDN following.
--- NOTE | 2019-09-27 17:03 | MORECARE ---
CASE MANAGEMENT DISCHARGE SUMMARY PATIENT: HELGA OLSON UNIT: [id number] ADM DATE: 09/24/19 AGE: 69 : 50 SEX: M ROOM/BED: D.2238 AUTHOR: TEETEE MCCLENDON PHYSICIAN: REFERRING PHYSICIAN: MILADYS PEREZ MD DATE OF SERVICE: 09/27/19 Discharge Plan Patient Name: HELGA OLSON Facility: [facility]:[place] : 1950 Planned Disposition: Inpatient Rehab Facility Anticipated Discharge Date: Discharge Date: Expected LOS: Initial Reviewer: [email or web address] Initial Review Date: 09/27/2019 Generated: 09/27/19 6:03 pm DCP- Discharge Planning Updated by [email or web address]: Selam Samaniego on 09/27/19 4:[address] Patient Name: HELGA OLSON Admission Status: ER Accout number: [id number] Admission Date: 09-24-2019 : 1950 Admission Diagnosis:WEAKNESS Attending: MILADYS PEREZ Current LOS: 3 Anticipated DC Date: Planned Disposition: Inpatient Rehab Facility Primary Insurance: MEDICARE A & B Discharge Planning Comments: CM met with patient, HIS AND SON at bedside after explaining CM role and obtaining verbal consent. CM discussed availability / needs of home health, REHAB and medical equipment. WE TALKED ABOUT INPATIENT REHAB AT [facility] AND HE FEELS HE WOULD BENEFIT FROM REHAB. HE DOES NOT WANT TO GO TO ANY OTHER REHAB. KATIANA SIGNED AND I HAVE PUT IN A REHAB CONSULT ORDER. CM TO FOLLOW AND ASSIST NEEDED. Scientific Programmer Analyst: Selam Samaniego DCPIA - Discharge Planning Initial Assessment Updated by [email or web address]: Selam Samaniego on 09/27/19 5:00 pm * Is the patient Alert and Oriented? Yes * PCP COLIN * Pharmacy [facility] * Preadmission Environment Home with Family * ADLs Independent * Other Equipment WALKER * Please name any agencies selected above. OUT PATIENT REHAB * Additional services required to return to the preadmission environment? Yes * Can the patient safely return to the preadmission environment? No * Has this patient been hospitalized within the prior 30 days at any hospital? No Patient Name: HELGA OLSON Page [phone] at 1703 All edits/amendments must be made on the electronic document DICTATION DATE: 09/27/191702 TOOL GRINDER: CADEN 09/27/191702 RPT#: [id number] DC DATE: STATUS: ADM IN [facility] [address] [place] [address] END OF REPORT
--- NOTE | 2019-09-27 19:30 | NUR ---
BEDSIDE ROUNDS MADE WITH THE DAY NURSE. INTRODUCED TO PT AND HIS . I EXPLAINED THAT I WOULD BE BACK TO GET AN ASSESSMENT AND GIVE MEDS.
[2019-09-27 20:00] VITALS: BP 130/77
--- NOTE | 2019-09-27 20:20 | NUR ---
ASSESSMENT COMPLETED AND MEDICATIONS GIVEN. HEART IS BEATING REGULARLY, LUNGS ARE CLEAR AND BOWEL SOUNDS HEARD. 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 HE HAS NO 02. HE CAN TAKE HIMSELF TO THE BATHROOM ALONE. HE DOES RELY ON FURNITURE TO HELP HIM ALONG. HE IS ON THE HEART MONITOR. HE HAS SCD'S IN PLACE. HE HAS A SL IN THE LEFT FOREARM. THIS WAS FLUSHED WITH NS BEFORE AND AFTER IV MED WAS GIVEN. HIS D/C PLAN IS TO TRANSFER TO REHAB ON MONDAY. PT IS PLANNING TO STAY THE NIGHT WITH PT.
--- NOTE | 2019-09-27 20:20 | NUR ---
PT HAS A DEFIB/PACEMAKEAR IN PLACE.
--- NOTE | 2019-09-27 22:31 | NUR ---
MADE ROUNDS ON PT. PT AND HIS ARE SOUND ASLEEP. NO C/O OR NEEDS AT THIS TIME.
[2019-09-28] VITALS: BP 136/77
--- NOTE | 2019-09-28 00:54 | NUR ---
PT IS SLEEPING AT THIS TIME. NO NEEDS OR C/O AT THIS TIME.
--- NOTE | 2019-09-28 02:00 | NUR ---
PT IS SLEEPING WITHOUT C/O
[2019-09-28 04:00] VITALS: BP 115/76
--- NOTE | 2019-09-28 04:05 | NUR ---
PT AWAKE FOR VS TO BE TAKEN. HE HAS NO C/O AT THIS TIME. SCD'S ON AND MACHINE IS WORKING.
--- NOTE | 2019-09-28 06:00 | NUR ---
PT IS SLEEPING AT THIS TIME. NO NEEDS OR C/O
--- NOTE | 2019-09-28 08:23 | NUR ---
RESTING IN BED, NO DISTRESS NOTED, FAMILY IN ROOM, TELE IN PLACE, SL TO LFA, CONT TO MONITOR
[2019-09-28 08:38] VITALS: BP 145/90
[2019-09-28 13:07] VITALS: BP 129/85
[2019-09-28 16:53] VITALS: BP 122/75
[2019-09-28 20:00] VITALS: BP 142/99
[2019-09-29] VITALS: BP 131/85
--- NOTE | 2019-09-29 01:56 | NUR ---
ALRT AND ORENTED X 4 ABLE TO VOICE NEEDS AND WANTS TOO STAFF ON ROOM AIR IV TO LEFT FOREARME S.L.BLIND TO RIGHT EYE WITH SOME PERIPHEREL VISION SCD'S IN PLACE INCENTIVE SPIROMETER IN REACH AT BEDSIDE. WATER AND CALL LIGHT IN REACH.
[2019-09-29 04:00] VITALS: BP 142/85
[2019-09-29 07:15] VITALS: BP 141/93
--- NOTE | 2019-09-29 09:00 | NUR ---
RESTING IN BED, DENIES PAIN, SL IN PLACE, FAMILY IN ROOM, TO DC TO REHAB TOMORROW
[2019-09-29 12:00] VITALS: BP 121/85
--- NOTE | 2019-09-29 13:20 | NUR ---
HE HAD A SHOWER TODAY.
[2019-09-29 16:00] VITALS: BP 110/65
[2019-09-29 20:00] VITALS: BP 137/93
[2019-09-30] VITALS: BP 117/77
[2019-09-30 04:00] VITALS: BP 129/86
[2019-09-30 09:31] VITALS: BP 115/83
--- NOTE | 2019-09-30 10:42 | NUR ---
0700 BEDSIDE REPORT RECEIVED FROM OUTGOING NURSE INTRODUCED MY SELF TO PATIENT AND HIS SPOUSE ASSESSMENT COMLETE
--- NOTE | 2019-09-30 10:45 | NUR ---
0900 ENCOURAGED INCERTIVE SPIROMETER USE PT STATED HE HAS ONLY USED IS TWICE SINCE ADMITION EDUCATED PT AND SPOUSE ON SYFW8LT OF IS USE INSTRUCTED PT THAT HE SHOULD IDEALLY PERFORM IS EXERCISES HOURLY WHILE AWAKE PT DEMONSTRATED CORRECT USE BY PULLING 3000 ML ON 4 ATTEMPTS
[2019-09-30] MEDS ORDERED: AGGRENOX 200/251 CAP PO (12:04)
--- NOTE | 2019-09-30 12:04 | NUR ---
1200 NURSE HAS BEEN TRYING TO SECURE AMARYL 4 MG PO SINCE 744 THIS AM MULTI CALLS TO PHARMACIST MADELEINE, PHARMACIST, WILL COME TROUBLESHOOT PYXIS
[2019-09-30] MEDS ORDERED: NICODERM CQ1 EAC2 TOPICAL (12:25)
--- NOTE | 2019-09-30 12:48 | NUR ---
1215 PHARMACIST X 2 APPEARRED TO TROUBLESHOOT PYXIS AND COMPLETED REPAIR MADELEINE VILLALOBOS STATED IT WAS OK TO GIVE AMARYL NOW
--- NOTE | 2019-09-30 12:50 | NUR ---
1235 CALLED REPORT TO RODOLFO FIERRO ON REHAB UNIT. STATED THAT ROOM WAS NOT READY
[2019-09-30 14:02] VITALS: BP 125/82
--- NOTE | 2019-09-30 16:21 | NUR ---
[id number] [facility]
--- NOTE | 2019-10-02 10:54 | MORECARE ---
CASE MANAGEMENT DISCHARGE SUMMARY PATIENT: HELGA OLSON UNIT: [id number] ADM DATE: 09/24/19 AGE: 69 : 50 SEX: M ROOM/BED: D.2238 AUTHOR: TEETEE MCCLENDON PHYSICIAN: REFERRING PHYSICIAN: MILADYS PEREZ MD DATE OF SERVICE: 10/02/19 Discharge Plan Patient Name: HELGA OLSON Facility: [facility]:[place] : 1950 Planned Disposition: Inpatient Rehab Facility Anticipated Discharge Date: Discharge Date: 09/30/2019 Expected LOS: Initial Reviewer: [id number] Initial Review Date: 09/27/2019 Generated: 10/02/19 11:54 am DCP- Discharge Planning Updated by [email or web address]: Selam Samaniego on 09/27/19 4:[address] Patient Name: HELGA OLSON Admission Status: ER Accout number: [id number] Admission Date: 09-24-2019 : 1950 Admission Diagnosis:WEAKNESS Attending: MILADYS PEREZ Current LOS: 3 Anticipated DC Date: Planned Disposition: Inpatient Rehab Facility Primary Insurance: MEDICARE A & B Discharge Planning Comments: CM met with patient, HIS AND SON at bedside after explaining CM role and obtaining verbal consent. CM discussed availability / needs of home health, REHAB and medical equipment. WE TALKED ABOUT INPATIENT REHAB AT [facility] AND HE FEELS HE WOULD BENEFIT FROM REHAB. HE DOES NOT WANT TO GO TO ANY OTHER REHAB. KATIANA SIGNED AND I HAVE PUT IN A REHAB CONSULT ORDER. CM TO FOLLOW AND ASSIST NEEDED. Shoe Cutter: Selam Samaniego DCPIA - Discharge Planning Initial Assessment Updated by [email or web address]: Selam Samaniego on 09/27/19 5:00 pm * Is the patient Alert and Oriented? Yes * PCP COLIN * Pharmacy [facility] * Preadmission Environment Home with Family * ADLs Independent * Other Equipment WALKER * Please name any agencies selected above. OUT PATIENT REHAB * Additional services required to return to the preadmission environment? Yes * Can the patient safely return to the preadmission environment? No * Has this patient been hospitalized within the prior 30 days at any hospital? No Coverage Notice Reviewer: [id number] - Selam Samaniego Notice Issued Date-Time: 09/30/2019 12:23 Notice Type: IM Discharge Notice Notice Delivered To: Patient Relationship to Patient: Spray Maker Name: Delivery Method: HAND - Hand Delivered Viri Days: Prior Verbal Notification: Recipient Understood Notice: Yes Recipient Signature: Yes Med Rec Note Co-signed by Attending: Coverage Notice Comment: Last DP export: 09/27/19 4:03 p Patient Name: HELGA OLSON Page [phone] at 1054 All edits/amendments must be made on the electronic document DICTATION DATE: 10/02/19 1054 AIRCREWMAN: CADEN 10/02/19 1054 RPT#: [id number] DC DATE:09/30/19 STATUS: DIS IN [facility] [address] [place] [address] END OF REPORT
== END 2019-09-30 16:22 | DRG 65 ==
LOC: D.ER 16:45 → D.MS 19:03 → D.SDCHOLD 09-30 16:01 → D.MS 09-30 16:09
PROVIDERS: Family Medicine; ADMIT Family Medicine; ATTEND Family Medicine
DX: I63.9 Cerebral infarction, unspecified (principal); C34.90 Malignant neoplasm of unspecified part of unspecified bronchus or lung; G81.94 Hemiplegia, unspecified affecting left nondominant side; G25.3 Myoclonus; I25.10 Atherosclerotic heart disease of native coronary artery without angina pectoris; I10 Essential (primary) hypertension; I48.91 Unspecified atrial fibrillation; E11.22 Type 2 diabetes mellitus with diabetic chronic kidney disease; I12.9 Hypertensive chronic kidney disease with stage 1 through stage 4 chronic kidney disease, or unspecified chronic kidney disease; N18.9 Chronic kidney disease, unspecified; Z86.73 Personal history of transient ischemic attack (TIA), and cerebral infarction without residual deficits

== ENCOUNTER 2019-09-30 16:20 | Inpatient (IN) | payer MEDICARE, OTHER ==
[~2019-09-30] VITALS: Ht 175.3 cm; Wt 83.9 kg
[~2019-09-30 16:20] MED LIST changes: +AGGRENOX 200/251 CAP PO; +BACLOFEN10 MG PO; +NICODERM CQ1 EAC2 TOPICAL
[2019-09-30 16:33] VITALS: BP 141/86; BMI 22.2
--- NOTE | 2019-09-30 19:45 | NUR ---
PATIENT RECEIVED LAYING IN BED. ASSESSMENT & VITAL SIGNS DONE. NO C/O PAIN OR DISTRESS. CALL LIGHT WITHIN REACH. WILL CONTINUE TO MONITOR.
[2019-09-30 21:53] VITALS: BP 141/86
--- NOTE | 2019-10-01 01:58 | NUR ---
PATIENT EYES CLOSED. RESPIRATIONS 18 & EVEN. BED LOW. ALARM ON. CALL LIGHT WITHIN REACH. WILL CONTINUE TO MONITOR.
--- NOTE | 2019-10-01 02:34 | NUR ---
I have reviewed this patient and I concur with the Shift Assessment completed by the Licensed Practical Nurse today this shift.
[2019-10-01 07:07] LABS: BASOPHILS 0.4 % (0-2); EOSINOPHILS 2.1 % (0-7); HEMATOCRIT 46.9 % (42.0-54.0); HEMOGLOBIN 15.4 g/dL (13.5-17.5); IMMATURE GRANULOCYTES 0.1 % (0-5); LYMPHOCYTES 25.2 % (15-50); MCH 30.6 pg (26.0-34.0); MCHC 32.8 g/dL (31.0-37.0); MCV 93.1 fL (80.0-100.0); MEAN PLATELET VOLUME 10.4 fL (7.4-10.4); MONOCYTES 6.4 % (2-11); NEUTROPHILS 65.8 % (40-80); PLATELET COUNT 181 10x3/uL (130-400); RBC 5.04 10x6/uL (4.20-6.10); RDW 13.8 % (11.5-14.5); WBC 8.3 10x3/uL (4.8-10.8)
[2019-10-01 07:18] LABS: ANION GAP 10.1 mmol/L (8-16); CALCIUM 9.2 mg/dL (8.5-10.1); CARBON DIOXIDE 28.4 mmol/L (21.0-32.0); CREATININE - SERUM 1.4 mg/dL (0.6-1.3); POTASSIUM - SERUM 4.5 mmol/L (3.5-5.1)
[2019-10-01 08:00] VITALS: BP 133/77
--- NOTE | 2019-10-01 08:00 | NUR ---
AWAKE AND ALERT IN BED WATCHING TV, DENIES ANY NEEDS AT THIS TIME, C/L AND FLUIDS IN REACH.
--- NOTE | 2019-10-01 08:45 | NUR ---
AWAKE AND ALERT, ASSESSMENT COMPLETE, DENIES ANY NEEDS AT THIS TIME, C/L AND FLUIDS IN REACH.
[2019-10-01 11:23] VITALS: Ht 175.3 cm; Wt 83.9 kg
--- NOTE | 2019-10-01 11:58 | NUR ---
UP IN W/C WITH THERAPY, DENIES ANY NEEDS AT THIS TIME, C/L AND FLUIDS IN REACH.
--- NOTE | 2019-10-01 13:00 | NUR ---
I have reviewed this patient and I concur with the Shift Assessment completed by the Licensed Practical Nurse today this shift.
--- NOTE | 2019-10-01 15:57 | NUR ---
RESTING IN BED WATCHING TV, DENIES ANY NEEDS AT THIS TIME, C/L AND FLUIDS IN REACH.
--- NOTE | 2019-10-01 19:30 | NUR ---
PATIENT RECEIVED LAYING IN BED. ASSESSMENT & VITAL SIGNS DONE. NO C/O PAIN OR DISTRESS. BED LOW. CALL LIGHT WITHIN REACH. WILL CONTINUE TO MONITOR.
[2019-10-01 21:16] VITALS: BP 93/55
--- NOTE | 2019-10-02 02:20 | NUR ---
I have reviewed this patient and I concur with the Shift Assessment completed by the Licensed Practical Nurse today this shift.
--- NOTE | 2019-10-02 02:35 | NUR ---
PATIENT EYES CLOSED. RESPIRATIONS 18 & EVEN. URINAL EMPTIED OF 500 CCOF YELLOW COLOR URINE. BED LOW. CALL LIGHT WITHIN REACH. WILL CONTINUE TO MONITOR.
--- NOTE | 2019-10-02 07:30 | NUR ---
AWAKE AND ALERT SITTING UP IN BED, DENIES ANY NEEDS AT THIS TIME, ASSESSMENT COMPLETE, C/L AND FLUIDS IN REACH.
[2019-10-02 08:00] VITALS: BP 121/80
[2019-10-02 08:52] LABS: ANION GAP 7.2 mmol/L (8-16); CALCIUM 9.4 mg/dL (8.5-10.1); CARBON DIOXIDE 30.3 mmol/L (21.0-32.0); CREATININE - SERUM 1.4 mg/dL (0.6-1.3); POTASSIUM - SERUM 4.5 mmol/L (3.5-5.1)
[2019-10-02 09:07] LABS: BASOPHILS 0.3 % (0-2); EOSINOPHILS 1.7 % (0-7); HEMATOCRIT 50.2 % (42.0-54.0); IMMATURE GRANULOCYTES 0.1 % (0-5); LYMPHOCYTES 22.2 % (15-50); MCH 30.1 pg (26.0-34.0); MCHC 31.9 g/dL (31.0-37.0); MCV 94.5 fL (80.0-100.0); MEAN PLATELET VOLUME 10.7 fL (7.4-10.4); MONOCYTES 5.1 % (2-11); NEUTROPHILS 70.6 % (40-80); PLATELET COUNT 186 10x3/uL (130-400); RBC 5.31 10x6/uL (4.20-6.10); RDW 13.9 % (11.5-14.5)
--- NOTE | 2019-10-02 12:07 | NUR ---
RESTING IN BED WITH AT BEDSIDE, DENIES ANY NEEDS AT THIS TIME, C/L AND FLUIDS IN REACH.
--- NOTE | 2019-10-02 16:06 | NUR ---
RESTING IN BED VISITING WITH , DENIES ANY NEEDS AT THIS TIME, C/L AND FLUIDS IN REACH.
--- NOTE | 2019-10-02 16:23 | NUR ---
CARE TEAM MEETING: PATIENT AND SPOUSE ATTENDED THE MEETING. PATIENT IS REQUESTING TO DISCHARGE HOME. PATIENT DOING WELL IN THERAPY. WILL CONTINUE TO FOLLOW WITH PATIENT. WILL DISCHARGE PATIENT 10/04/19.
--- NOTE | 2019-10-02 19:25 | NUR ---
ASSESSMENT PER FLOW SHEET, VS OBTAINED PER OUTSOLE SPLICER, PT REPORTS FLATUS, BM TODAY, AND VOIDING WITH NO DIFFICULTY, PT ENC TO USE CALL LIGHT FOR ANY ASSISTANCE, PT REQUESTED AND SERVED FRESH H20, DENIES FURTHER NEEDS, BED IN LOW POSITION, SIDE RAILS X 2, CALL LIGHT IN REACH
--- NOTE | 2019-10-02 20:30 | NUR ---
PT RESTING WITH EYES CLOSED, RESP QUIET, NO DISTRESS NOTED, LEFT UNDISTURBED AT THIS TIME
[2019-10-02 20:59] VITALS: BP 104/61
--- NOTE | 2019-10-02 21:34 | NUR ---
PT AWAKE, ADM 2100 MEDS PER MD ORDERS, SEE EMAR, PT DENIES NEEDS OR PAIN, BED IN LOW POSITION, SIDE RAILS X 2, CALL LIGHT IN REACH
--- NOTE | 2019-10-02 22:30 | NUR ---
PT RESTING WITH EYES CLOSED, RESP QUIET, NO DISTRESS NOTED, LEFT UNDISTURBED AT THIS TIME, BED IN LOW POSITON, SIDE RAILS X 2, CALL LIGHT IN REACH
--- NOTE | 2019-10-03 00:18 | NUR ---
PT AWAKE, REQUESTED AND SERVED COFFEE, DENIES FURTHER NEEDS OR PAIN AT THIS TIME, BED IN LOW POSITION, SIDE RAILS X 2, CALL LIGHT IN REACH
--- NOTE | 2019-10-03 06:18 | NUR ---
PT LYING IN BED EYES CLOSED RESTING QUIETLY. RR EVEN AND UNLABORED. CALL LIGHT AND WATER WITHIN REACH. FALL PRECAUTIONS IN PLACE. CPOC
--- NOTE | 2019-10-03 07:30 | NUR ---
AWAKE,RESTING QUIETLY IN BED.DENIES NEEDS.ASSESSMENT COMPLETED.CL IN EASY REACH,BED IN LOW POSITION.WILL CONTINUE WITH CURRENT PLAN OF CARE.
[2019-10-03 08:00] VITALS: BP 125/85
--- NOTE | 2019-10-03 12:10 | NUR ---
HOME MEDS CALLED TO [facility] PER 'S REQUEST.
--- NOTE | 2019-10-03 12:24 | NUR ---
PATIENT ADMITTED TO REHAB FROM ACUTE FLOOR. HIS PCP IS DR. SHAW. DME AT HOME IS A ROLL[facility]. WILL CONTINUE TO FOLLOW WITH PATIENT AND WILL ASSIST WITH DC NEEDS.
--- NOTE | 2019-10-03 19:12 | NUR ---
PT LYING IN BED RESTING QUIETLY. AROUSES TO VOICE. CL IN REACH. DENIES NEEDS AT THIS TIME. BED IN LOW SIDE RAILS X2. BED ALARM WAIVER ON CHART. RESP EVEN AND UNLABORED. LUNGS CLEAR. BOWEL ACTIVE X4. WILL CONTINUE TO MONITOR.
[2019-10-03 21:38] VITALS: BP 99/59
--- NOTE | 2019-10-04 01:30 | NUR ---
PT RESTING QUIETLY. CL IN REACH. NO DISTRESS NOTED. WCTM
[2019-10-04 06:29] LABS: BASOPHILS 0.3 % (0-2); EOSINOPHILS 1.5 % (0-7); HEMATOCRIT 47.2 % (42.0-54.0); IMMATURE GRANULOCYTES 0.3 % (0-5); LYMPHOCYTES 23.5 % (15-50); MCH 29.8 pg (26.0-34.0); MCHC 31.8 g/dL (31.0-37.0); MCV 93.7 fL (80.0-100.0); MEAN PLATELET VOLUME 10.7 fL (7.4-10.4); MONOCYTES 6.2 % (2-11); NEUTROPHILS 68.2 % (40-80); PLATELET COUNT 185 10x3/uL (130-400); RBC 5.04 10x6/uL (4.20-6.10); RDW 13.8 % (11.5-14.5); WBC 9.1 10x3/uL (4.8-10.8)
[2019-10-04 06:50] LABS: ANION GAP 10.6 mmol/L (8-16); CALCIUM 9.4 mg/dL (8.5-10.1); CARBON DIOXIDE 28.8 mmol/L (21.0-32.0); CREATININE - SERUM 1.6 mg/dL (0.6-1.3); POTASSIUM - SERUM 4.4 mmol/L (3.5-5.1)
--- NOTE | 2019-10-04 07:30 | NUR ---
AWAKE,EXCITED TO BE GOING HOME TODAY.DENIES NEEDS.ASSESSMENT COMPLETED.CL IN EASY REACH,BED IN LOW POSITION.WILL CONTINUE WITH CURRENT PLAN OF CARE.
[2019-10-04 08:00] VITALS: BP 114/70
--- NOTE | 2019-10-04 09:48 | NUR ---
PATIENT DISCHARGING HOME TODAY WITH FAMILY. PATIENT SPOUSE HAS DECLINED HOME HEALTH SERVICES AND ANY DME NEEDS AT THIS TIME. DR. SHAW 10/08/19 @ 1:30, DR. GANDARA 10/25/19 @ 11:45. KATIANA SIGNED, IMM SERVED AND EXPLAINED, ONE GIVEN TO PATIENT AND ONE FILED IN CHART. DISCHARGE INSTRUCTIONS FAXED TO PCP AND REVIEWED WITH PATIENT PER PRIMARY NURSE.
--- NOTE | 2019-10-04 12:10 | NUR ---
DISCHARGE TEACHING,WRITTEN AND ORAL DONE WITH PATIENT AND SPOUSE.ALL QUESTIONS ANSWERED.
--- NOTE | 2019-10-04 12:20 | NUR ---
DISCHARGED HOME VIA WHEELCHAIR TO CAR.HAS ALL PERSONAL ITEMS,INSTRUCTIONS.SPOUSE AT SIDE.
--- NOTE | 2019-10-04 12:25 | RHP ---
PATIENT: HELGA OLSON MEDICAL RECORD: [id number] ACCOUNT: [id number] LOCATION:[id number] : 50 ADMISSION DATE: 09/30/19 REHABILITATION HISTORY AND PHYSICAL EXAMINATION POST ADMISSION PHYSICIAN EXAMINATION ADMITTING DIAGNOSIS: CVA. HISTORY OF PRESENT ILLNESS: The patient is a gentleman who is admitted secondary to a right arterial systemic stroke involving anterior cerebral artery, thrombotic stroke involving the basilar artery, a right middle cerebral artery stroke. He presented to Emergency Room Department with complaints of left-sided leg weakness and right arm weakness with spasms that had worsened. He had multiple falls over the previous weeks, he has got a history of muscle spasms, recently been diagnosed by the neurologist. He had been seen in the ER on 09/13/2019. He had increased weakness and spasms. He had a CT of his head done that showed old lacunar infarct in the left thalamus and right internal capsule. He was discharged home. He saw Dr. 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 His chest x-ray showed development of a 3 cm mass in the left lower lobe just lateral to the left hilum. CT of the chest with contrast was done and showed a 5 cm x 3.9 cm left lower lobe liver lesion, which was concerning for malignancy. He was seen and followed by oncology due to the diagnosis of non-small cell adenocarcinoma of the lung. He has had an ablation and a noted lung lesion appears large with necrotic center, which is expected with the ablation. He has been seen and followed by neurology for past care for the thalamic lacunar infarction and brainstem infarction in the past with chronic left-sided hemiparesis and subsequent spasticity and myoclonus, presented again to the hospital for admission on 09/24/2019 with report of yet near-recurrent left-sided weakness in arm and leg and his family reports that he has been having falls at home. Admission CT showed development of a subacute ischemic infarct and anterior superomedial right frontal lobe and demonstrated the old lacunar infarct in the left thalamus and right internal capsule and did not visualize a brainstem well. Carotid Doppler showed a significant stenosis to internal carotid artery that showed anterior grade flow in both vertebral arteries. The new right frontal infarction occurred on Plavix and aspirin and the patient is in agreement to advance anticoagulation to Aggrenox twice a day. Past imaging had demonstrated a thalamic and the brain stem strokes as well as the vertebral thrombosis. The patient has been seeing physical therapy has progressed well, but is having some balance issues. He needs to be monitored closely with medication adjustments for spasticity and monitor his cardiac status for AFib. He has got a history of coronary artery disease. He is still having problems with pain control, monitoring his blood sugars. Elevations of his electrolytes have been noted. He is on new anticoagulation therapy. He is on electrolyte protocol. He has got weakness, balance deficits, decreased activity tolerance, impaired mobility, decreased range of motion, decreased strength, limited safety awareness. He is a medical complexity and risk for falls. He has got multiple recent falls. He needs cues for equipment, low endurance, unsteady gait and balance. He fatigues easily, got inability to care for himself and he lives at home and his , was independent with ADLs and mobility prior to this. He is currently set up for mod assist for his ADLs, mod assist for his mobility. He would like to return home hopefully at his prior level of functioning. COMORBIDITIES: Include weakness, non-small cell cancer of the lung, chronic renal disease, CVA, hypertension, type 2 diabetes, myoclonus, acute cerebellar HISTORY AND PHYSICAL [id number] WESLEY,HELGA infarct, thrombotic stroke involving the basilar artery, right middle cerebral artery stroke and left hemiparesis. PAST MEDICAL HISTORY: Significant for myoclonus, CVA, coronary artery disease, arrhythmias, history of pacemaker placement. PAST SURGICAL HISTORY: Includes pacemaker defibrillator placement, coronary stents, coronary artery bypass grafting, has had a transurethral resection of the prostate, he has had back surgery, he has had intramedullary nail placed in his hip. ALLERGIES: WELLBUTRIN AND BRILINTA. CURRENT MEDICATIONS: Include baclofen 5 mg t.i.d., he is on Effexor 150 mg daily, he is on a Nicoderm patch, he is on amiodarone 200 mg daily, Amaryl 4 mg daily, baclofen 5 mg b.i.d., he is on Lipitor 80 mg at bedtime, aspirin/dipyridamole combination or Aggrenox 1 cap b.i.d. and Coreg 12.5 mg b.i.d. with meals. HABITS: Does have a history of tobacco use. FAMILY HISTORY: Noncontributory. SOCIAL HISTORY: The patient hopes to return back home and get back to his prior level of functioning. REVIEW OF SYSTEMS: GENERAL: Does complain of weakness, worse on one side. HEENT: Denies cold, cough, or congestion. CARDIOVASCULAR: Denies any chest pain. PHYSICAL EXAMINATION: VITAL SIGNS: Stable, afebrile. GENERAL: A well-developed gentleman in no acute distress upon exam. HEENT: Normocephalic and atraumatic. Mucosa moist. NECK: Supple. No lymphadenopathy. LUNGS: Clear in upper coyle. No wheezing, rhonchi or rales. HEART: Irregular rate and rhythm. No murmurs, rubs or gallops. ABDOMEN: Soft, benign, and nondistended. Positive bowel sounds times 4. EXTREMITIES: He does have noted weakness on his left side. He does have proximal muscle strength, decreases in his muscles of his upper arm and also his thighs. LABORATORY DATA: Admit white count is 8.3, H&H of 15 and 46 and platelet count is noted to be 181. Sodium is 142, potassium 4.5, BUN and creatinine of 21 and 1.4, and blood sugar is noted to be 135. ASSESSMENT: This is a 69-year-old gentleman admitted to the rehab with a working diagnosis of multiple cerebrovascular accident. The patient has potential to make improvement. We instituted the following multidisciplinary therapies include, but not limited to physical, occupational, respiratory, speech, nutritional services, prosthetics and orthotics. Given his complex medical condition and risks for more complications, rehabilitation services cannot be provided at a low level of care such as shelter facility. HISTORY AND PHYSICAL [id number] HELGA OLSON PLAN: 1. Admit to [facility] for inpatient therapy to include the following disciplines; A. Physical therapy to improve gait, all transfer skills and bed mobility to a modified independent level. B. Occupational therapy to improve activities of daily living. C. Case management to help with discharge planning and placement options. D. Nutrition to assist with nutritional needs. E. Rehabilitation nursing to assist in monitoring the patient's underlying medical conditions and to assist with any type or bladder management. 2. The patient's current medication and medical care will be continued. 3. We will watch him closely on his new anticoagulants. 4. We will consult neurology again if needed. 5. I will see again in the a.m. TRANSINT:[id number] Voice Confirmation ID: [id number] DOCUMENT ID: [id number] [place] notes whether there has been none or any medical/functional change since admission: - No change since prescreen. [place] attests patient continues to be appropriate for IRF: - Continues to be appropriate. ORESTES ERNST MD at 1225 CC: [id number] DICTATION DATE: 10/01/19825 UNDERGROUND PRODUCTION FOREPERSON: 10/01/19 1241 ADM IN [place] [id number] [place] [id number]
== END 2019-10-04 12:20 | disposition home or self-care (01) | DRG 57 ==
LOC: D.REHAB 16:20
PROVIDERS: ADMIT Emergency Medicine; ATTEND Emergency Medicine
DX: I69.354 Hemiplegia and hemiparesis following cerebral infarction affecting left non-dominant side (principal); C34.90 Malignant neoplasm of unspecified part of unspecified bronchus or lung; I12.9 Hypertensive chronic kidney disease with stage 1 through stage 4 chronic kidney disease, or unspecified chronic kidney disease; E11.22 Type 2 diabetes mellitus with diabetic chronic kidney disease; N18.9 Chronic kidney disease, unspecified

== ENCOUNTER → 2019-12-11 10:48 | Outpatient (CLI) | payer MEDICARE, OTHER ==
[2019-10-01 11:23] VITALS: BMI 27.3
--- NOTE | ~2019-12-11 | EC ---
PATIENT:HELGA OLSON DATE OF SERVICE: 12/11/19 SEX: M MEDICAL RECORD: [id number] DATE OF : 50 LOCATION:[facility] AGE OF PATIENT: 69 ADMISSION DATE: 12/11/19 REFERRING PHYSICIAN: INTERPRETING PHYSICIAN: YANN RODRIGES MD ECHOCARDIOGRAM REPORT ECHO CHARGES 4 ECHO COMPLETE Date: 12/11/19 CLINICAL DIAGNOSIS: CAD/ASSESS EF MITRAL AND TRICUSPID REGURG ECHOCARDIOGRAPHIC MEASUREMENTS (adult normal given) AC root (d.<3.7cm) 3.9 cm LV Septum d (<1.2 cm> 1.7 cm Valve Excursion 1.8 cm LV Septum (systole) 2.2 cm Left Atria (s.<4.0cm> 4.3 cm LVPW d(<1.2cm) 1.6 cm RV (d.<2.3cm) 2.9 cm LVPW (sytole) 2.2 cm LV diastole(<5.6CM) 5.1 cm MV E-F(>70mm/sec) cm LV systole 3.5 cm LVOT Diameter 1.9 cm MV exc.(>10mm) 1.5 cm Est.ejection fraction (50-75%) % DOPPLER: LVIT cm/sec A 63.0 cm/sec E 40.0 cm/sec LA cm/sec RVSP 20 mmHg LVOT 97 cm/sec AOP1/2T m/s Asc. 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 Haddad TAPE# PACS Pericardial Effusion N DATE OF SERVICE: Adequate 2D, color flow imaging, spectral Doppler, and M-Mode. LVH is present. LV internal dimension is normal. Wall motion is normal. EF is greater than or equal to 55%. Aortic valve is tricuspid. No evidence of stenosis by Doppler interrogation. Left atrium is dilated at 4.3 cm. Mitral valve shows no prolapse. Trace MR. Right-sided chambers are grossly normal. Trace TR. ECHOCARDIOGRAM REPORT [id number] HELGA OLSON TRANSINT:[id number] Voice Confirmation ID: [id number] DOCUMENT ID: [id number] YANN RODRIGES MD CC: [id number] DICTATION DATE: 12/12/19 1327 [employer] ARCHITECT: 12/12/19 1612 DEP CLI 12/11/19 [place] [id number] [place] [id number]
== END | disposition home or self-care (01) ==
LOC: D.HCCECHO 10:48
PROVIDERS: ATTEND Internal Medicine Interventional Cardiology
DX: I25.10 Atherosclerotic heart disease of native coronary artery without angina pectoris (principal)

== ENCOUNTER 2020-08-06 11:53 | Emergency (ER) | payer MEDICARE, OTHER ==
[~2020-08-06] VITALS: Ht 175.3 cm; Wt 77.3 kg
[2020-08-06 12:00] VITALS: BP 128/88; Ht 175.3 cm; Wt 77.3 kg
[2020-08-06] MEDS ORDERED: CIALIS2.5 MG PO (12:03)
[2020-08-06] MEDS ORDERED: LANTUS INS100 UNITS/ SC (12:04)
[2020-08-06 12:34] LABS: ANION GAP 10.4 mmol/L (8-16); CALCIUM 9.1 mg/dL (8.5-10.1); CARBON DIOXIDE 26.3 mmol/L (21.0-32.0); CREATININE - SERUM 1.4 mg/dL (0.6-1.3); POTASSIUM - SERUM 3.7 mmol/L (3.5-5.1)
[2020-08-06 12:39] LABS: ALBUMIN 3.2 g/dL (3.4-5.0); BILIRUBIN - TOTAL 0.18 mg/dL (0.2-1.3); PROTEIN - SERUM 6.8 g/dL (6.4-8.2)
[2020-08-06 12:49] LABS: BASOPHILS 0.3 % (0-2); EOSINOPHILS 1.9 % (0-7); HEMATOCRIT 46.2 % (42.0-54.0); HEMOGLOBIN 15.4 g/dL (13.5-17.5); IMMATURE GRANULOCYTES 0.2 % (0-5); LYMPHOCYTE ABS# 2.54 10x3/uL (1.32-3.57); LYMPHOCYTES 22.1 % (15-50); MCH 31.6 pg (26.0-34.0); MCHC 33.3 g/dL (31.0-37.0); MCV 94.9 fL (80.0-100.0); MEAN PLATELET VOLUME 10.8 fL (7.4-10.4); MONOCYTES 6.5 % (2-11); NEUTROPHIL ABS# 7.93 10x3/uL (1.78-5.38); PLATELET COUNT 205 10x3/uL (130-400); RBC 4.87 10x6/uL (4.20-6.10); RDW 13.2 % (11.5-14.5); WBC 11.5 10x3/uL (4.8-10.8)
[2020-08-06 13:50] LABS: PROTIME 12.2 SECONDS (11.6-15.0)
[2020-08-06 14:00] LABS: APTT 26.7 SECONDS (22.8-39.4)
== END 2020-08-06 14:34 | disposition other institution (70) ==
LOC: D.ER 11:53
PROVIDERS: Student in an Organized Health Care Education/Training Program
DX: I63.9 Cerebral infarction, unspecified (principal); R53.1 Weakness; I10 Essential (primary) hypertension; E11.9 Type 2 diabetes mellitus without complications; Z79.84 Long term (current) use of oral hypoglycemic drugs; Z72.0 Tobacco use

== ENCOUNTER 2020-08-10 19:06 | Inpatient (IN) | payer MEDICARE, OTHER ==
[~2020-08-10] VITALS: Ht 175.3 cm; Wt 78.0 kg
--- NOTE | ~2020-08-10 | HEMODYNAMI ---
PATIENT:HELGA OLSON MEDICAL RECORD: [id number] : 50 [id number] ADMISSION DATE: 08/10/20 Generatedon:116:49 Patient name: HELGA OLSON Patient #: [id number] SSN : : 1950 Date of study: 08/11/2020 Page: Of Hemodynamic Procedure Report Patient Data Patient Demographics Procedure consent was obtained First Name: HELGA Gender: Male Last Name: WESLEY : 1950 Middle Initial: H Age: 69 year(s) Patient #: [id number] Race: Additional ID: [id number] Contact details Address: [address] [place] [address] [address] State: [place] City: [place] Zip code: [address] Past Medical History Allergies Allergen Reaction Date Comments Reported Other allergy 08/11/2020 buprpion Other allergy 08/11/2020 brilinta Admission Admission Data Admission Date: 08/10/2020 Admission Time: 21:16 Admit Source: Other Room #: D.2114 Height (in.): 68.9 BSA: 1.94 (m2) Height (cm.): 175 BMI: 25.6 (kg/m2) Weight (lbs.): 172.84 Weight (kg.): 78.4 Lab Results Lab Result Date: 08/11/2020 Lab Result Time: 0:00 Biochemistry Name Units Result Min Max Creatinine mg/dl 1.6 --(----)-* 0.6 1.3 Troponin l ng/ml 0.066 --(----)*- 0 0.06 CBC Name Units Result Min Max Hemoglobin g/dl 14.3 --(*---)-- 13.5 17.5 Procedure Procedure Types Cath Procedure Diagnostic Procedure LHC LHC w/Coronaries w/Grafts Sedation Charges Moderate Sedation 25-39 minutes PCI Procedure Hemochron ACT Test AMI/SVG/SAUSAGE INSPECTOR PTCA or Stent SVG-BMS/NIXON Initial Procedure Description Procedure Date Procedure Date: 08/11/2020 Procedure Start Time: 16:08 Procedure End Time: 16:46 Procedure Staff Name Function Isaac Blankenship MD Performing Physician Ewelina Sher RT Monitor Leatha Bazan RT Scrub Franck Casillas RN Nurse Procedure Data Cath Procedure Fluoroscopy Diagnostic fluoroscopy Total fluoroscopy Time: 12 time: 12 min min Diagnostic fluoroscopy Total fluoroscopy dose: dose: 2086 mGy 2086 mGy Contrast Material Contrast Material Type Amount (ml) Isovue 370 200 Entry Location Entry Primary Successful Side Size Upsize Upsize Entry Closure Succes sful Closure Location (Fr) 1 (Fr) 2 (Fr) Remarks Device Remarks Femoral Right 5 Fr 6 Fr Exoseal artery Short Estimated blood loss: 10 ml Diagnostic catheters Device Type Used For End Catheter Placement MULTIPACK JL 4.0 5Fr Left Coronary catheter Angiography MULTIPACK 3DRC 5Fr Right Coronary catheter Angiography MULTIPACK 3DRC 5Fr Internal mammary catheter arteriography MULTIPACK Pigtail 5 Fr LV Angiography catheter MULTIPACK Pigtail 5 Fr Aortic Root catheter Angiography DIAGNOSTIC LCB 5Fr SVG Angiography catheter ([id number]) Procedure Complications No complications Procedure Medications Medication Administration Route Dosage Oxygen etCO2 Nasal cannula 2 l/min Lidocaine 2% added to field 20 Heparin Flush Bag added to field 2 bags (1000units/500ml NS) 0.9% NaCl I.V. 100 ml/hr Fentanyl I.V. 100 mcg Versed I.V. 2 mg Versed I.V. 1 mg Versed I.V. 1 mg Heparin Bolus I.V. 5000 units Integrilin (Bolus I.V. 6.2 ml 2mg/ml) Plavix P.O. 600 mg Hemodynamics Rest BSA: 1.94 (m2) HGB: 14.3 (g/dl) O2 Consumption: Estimated: 224.94 (ml/min) O2 Co nsumption indexed: Estimated:115.95 (ml/min/m) Heart Rate: 71 (bpm) Pressure Samples Time Site Value (mmHg) Purpose Heart Use Rate(bpm) 16:19 LV 108/10,7 Snapshot 70 Gradients Valve Time Site Site Mean SEP/DFP Peak To Heart Use 1 2 (mmHg) (sec/min) Peak Rate (mmHg) (bpm) Aortic 16:20 LV AO 69 Snapshots Pre Cath Intra NCS Post Cath Vital Signs Time Heart Resp SPO2 etCO2 NIBP (mmHg) Rhythm Pain Sedation Rate (ipm) (%) (mmHg) Status Level (bpm) 15:58:51 72 18 94 30.5 151/96(127) NSR 0 (11) 10(A) , No pain 16:03:01 69 15 98 24.5 144/96(112) NSR 0 (11) 10(A) , No pain 16:09:12 70 10 97 0 144/98(123) NSR 0 (11) 9(A) , No pain 16:13:20 69 10 96 28.2 119/78(100) NSR 0 (11) 9(A) , No pain 16:17:27 69 11 96 23.1 123/82(99) NSR 0 (11) 9(A) , No pain 16:21:37 71 11 97 27.5 106/72(87) NSR 0 (11) 9(A) , No pain 16:25:39 69 10 98 29.8 121/81(101) NSR 0 (11) 9(A) , No pain 16:29:49 69 11 98 29.7 111/69(100) NSR 0 (11) 9(A) , No pain 16:33:57 69 10 98 29 111/68(101) NSR 0 (11) 9(A) , No pain 16:38:03 69 10 98 21.6 124/76(92) NSR 0 (11) 9(A) , No pain 16:42:14 69 10 98 20.8 119/74(108) NSR 0 (11) 10(A) , No pain 16:46:24 69 10 98 18.6 128/75(104) NSR 0 (11) 10(A) , No pain Medications Time Medication Route Dose Verified Delivered Reason Notes Effectiveness by by 15:59:54 Oxygen etCO2 2 Isaac Juárez used for Nasal l/min St Grant Casillas gold and silver assayer cannula 16:00:01 Lidocaine 2% added 20ml Isaac Gray for local to vial [facility] anesthetic field MD CHILEL 16:00:07 Heparin Flush added 2 Isaac Isaac used for Bag to bags [facility] procedure (1000units/500ml field MD CHILEL NS) 16:00:16 0.9% NaCl I.V. 100 Isaac Juárez Per physician ml/hr St Grant Casillas RN, MD 16:07:44 Fentanyl I.V. 100 Isaac Juárez for sedation mcg St Grant Casillas RN, MD 16:07:53 Versed I.V. 2 mg Isaac Juárez for sedation St Grant Casillas RN, MD 16:08:55 Versed I.V. 1 mg Isaac Juárez for sedation St Grant Casillas RN, MD 16:19:50 Versed I.V. 1 mg Isaac Juárez for sedation St Grant Casillas RN, MD 16:27:40 Heparin Bolus I.V. 5000 Isaac Juárez for verif ied units [facility] Grant Casillas RN anticoagulation with MD erma jones rn 16:27:40 Integrilin I.V. 6.2 Isaac Juárez for waste d (Bolus 2mg/ml) ml St Grant Casillas RN antiplatelet 3.8 ml MD therapy 16:41:29 Plavix P.O. 600 Isaac Juárez for mg St Grant Casillas RN antiplatelet MD therapy Procedure Log Time Note 15:12:16 Informed consent obtained and on chart 15:12:26 Diagnostic Cath Status : Urgent 15:13:28 Admit Source: Other 15:13:31 ACC Patient presents with Unstable Angina CCS Anginal Class 2--Slight limitation of ordinary activity. 15:13:33 Procedure Status Urgent Heart Cath (IP). 15:13:35 Time tracking: Regular hours (M-F 7:00 - 5:00) 15:13:39 Plan of Care:Hemodynamics will remain stable., Cardiac rhythm will remain stable., Comfort level will be maintained., Respiratory function will remain adequate., Patient/ family verbilizes understanding of procedure., Procedure tolerated without complication., Recovers from procedure without complications.. 15:27:46 Leatha Bazan RT(R) sent for patient. Start room use. 15:44:07 Patient received from PCU to CCL 2 Alert and oriented. Tansferred to table in Supine position. 15:44:08 Warm blankets applied, and ninoska hugger turned on for patient comfort. 15:44:09 Correct patient and procedure confirmed by team. 15:44:09 ECG and BP/O2 sat monitors applied to patient. 15:44:10 Full Disclosure recording started 15:46:00 H&P Date Dictated: 08/10/2020 Within 30 days and on chart.. 15:46:01 Pre-procedure instructions explained to patient. 15:46:01 Pre-op teaching completed and patient verbalized understanding. 15:46:09 Family in patients room. 15:46:10 Patient NPO since Midnight. 15:46:44 Patient allergic to Other allergybuprpion 15:47:08 Patient allergic to Other allergybrilinta 15:47:58 Is the patient allergic to Iodine/contrast media? No. 15:48:01 Is patient on blood thinner?No 15:48:07 Bleeding risk 0.6%. 15:48:08 Patient diabetic? Yes. 15:49:00 If diabetic: On Metformin? No 15:49:06 Previous problem with sedation/anesthesia? No ? 15:49:07 Snore? Yes 15:49:08 Sleep apnea? No 15:49:09 Deviated septum? No 15:49:09 Opens mouth fully? Yes 15:49:10 Sticks out tongue? Yes 15:49:12 Airway obstruction? No ? 15:49:13 Dentures? No ? 15:49:19 Pre procedure: right dorsailis pedis pulse 2+ Normal; easily identifiable; not easily obliterated 15:49:23 Patient pain scale 0/10 ?. 15:49:38 IV left antecubital D/C'd due to infiltration. 15:50:17 Lab results completed and on chart. 15:50:21 Risk of Mortality: 0.1 15:50:24 Risk of blood transfusion: 0.6 15:50:26 Risk of MAHIN: 3.6 15:51:04 IV started by Franck Casillas RN [facility] forearm with a 20 gauge IV catheter with 0.9% NaCl at KVO. 15:52:02 IV CATHETER 20g opened to sterile field. 15:52:38 Lab Result : Creatinine 1.6 mg/dl 15:52:38 Lab Result : Troponin l 0.066 ng/ml 15:52:38 Lab Result : Hemoglobin 14.3 g/dl 15:57:47 Vital chart was started 15:58:04 Rhythm: paced 15:58:17 Right groin area was prepped with chlora-prep and draped in sterile fashion 15:58:18 Alarms reviewed by R. N. 15:58:18 Sharps counted by scrub and verified by R.N. 15:59:43 Physician arrived 15:59:46 Use device set Femoral Dx 15:59:47 ACIST Syringe (57281) opened to sterile field. 15:59:48 Bag Decanter (2002S) opened to sterile field. 15:59:48 Medline Cath Pack ([id number]) opened to sterile field. 15:59:50 ACIST Hand Control (94333) opened to sterile field. 15:59:50 ACIST Manifold (53358) opened to sterile field. 15:59:51 DIAGNOSTIC Multipack 5Fr catheter set ([id number]) opened to sterile field. 15:59:52 SHEATH 5FR Lorton ([id number]) opened to sterile field. 15:59:53 EMERALD Guide Wire (800-837) opened to sterile field. 15:59:54 Oxygen 2 l/min etCO2 Nasal cannula was administered by Franck Casillas RN; used for procedure; Verbal order read back and verified. 16:00:01 Lidocaine 2% 20ml vial added to field was administered by Isaac Blankenship MD; for local anesthetic; Verbal order read back and verified. 16:00:07 Heparin Flush Bag (1000units/500ml NS) 2 bags added to field was administered by Isaac Blankenship MD; used for procedure; Verbal order read back and verified. 16:00:16 0.9% NaCl 100 ml/hr I.V. was administered by Franck Casillas RN; Per physician; Verbal order read back and verified. 16:00:27 Maximum allowable contrast dose (3.7 X eGFR X 0.75)128 ml. 16:00:43 3a) 45-59 Moderately reduced kidney function. 16:01:27 Baseline sample Acquired. 16:07:08 Final Timeout: patient, procedure, and site verified with staff and physician. All members of the team are in agreement. 16:07:10 Right groin site verified by team. 16:07:13 Fire Safety Assessment: A--An alcohol-based skin anteseptic being used preoperatively., C--Open oxygen or nitrous oxide is being used., D--An ESU, laser, or fiber-optic light is being used. 16:07:16 Physical assessment completed. ASA score P 2 - A patient with mild systemic disease as per Isaac Blankenship MD. 16:07:20 Sedation plan: IV Moderate Sedation Medication:Versed, Fentanyl 16:07:40 Procedure started. 16:07:44 Fentanyl 100 mcg I.V. was administered by Franck Casillas RN; for sedation; Verbal order read back and verified. 16::53 Versed 2 mg I.V. was administered by Franck Casillas RN; for sedation; Verbal order read back and verified. 16:07:58 Procedure type changed to Cath procedure, Diagnostic procedure, LHC, LHC w/Coronaries w/Grafts, Sedation Charges, Moderate Sedation 25-39 minutes, PCI procedure, Hemochron ACT Test, AMI/SVG/SAUSAGE INSPECTOR PTCA or Stent, SVG-BMS/NIXON Initial 16:08:44 Local anesthetic to right femoral artery with Lidocaine 2% by Isaac Blankenship MD.INITIAL ACCESS ONLY 16:08:55 Versed 1 mg I.V. was administered by Franck Casillas RN; for sedation; Verbal order read back and verified. 16:09:10 Patient Height : 68.9 inches 16:09:20 Patient Weight : 172.84 lbs 16:09:32 A 5 Fr sheath was inserted into the Right Femoral artery 16:09:38 A MULTIPACK JL 4.0 5Fr catheter was advanced over the wire and used for Left Coronary Angiography. 16:09:42 Zero performed for pressure channel P1 16:10:38 Catheter removed. 16:11:48 A MULTIPACK 3DRC 5Fr catheter was advanced over the wire and used for Right Coronary Angiography. 16:15:46 GLIDE WIRE ANGLE 260cm ([id number]) opened to sterile field. 16:16:11 260 glide wire advanced. 16:16:19 A MULTIPACK 3DRC 5Fr catheter was advanced over the wire and used for Internal mammary arteriography.to LAD 16:17:46 Catheter removed. 16:19:07 A MULTIPACK Pigtail 5 Fr catheter was advanced over the wire and used for LV Angiography. 16:19:49 LV gram done using DE ANDA 16:19:50 Versed 1 mg I.V. was administered by Franck Casillas RN; for sedation; Verbal order read back and verified. 16:19:50 LV hemodynamics recorded. 16::53 Injector settings: Ml/sec: 10, Volume: 20, 16:20:10 EF : 45 % 16:20:18 A MULTIPACK Pigtail 5 Fr catheter was advanced over the wire and used for Aortic Root Angiography. 16:21:09 Catheter removed. 16:22:37 A DIAGNOSTIC LCB 5Fr catheter ([id number]) was advanced over the wire and used for SVG Angiography.to Circ 16:24:13 Catheter removed. 16:24:26 Proceeding to intervention. 16:24:40 SHEATH 6FR Lorton (JBX080) opened to sterile field. 16:24:45 INFLATOR Merit BasixCompak (NM5631) opened to sterile field. 16::57 GUIDE 6FR LCB catheter (LA6LCB) opened to sterile field. 16:25:11 PCI Cath status Urgent 16:25:49 BMW 300cm [place] 2 J wire ([id number]) opened to sterile field. 16::57 Sheath upsized to a 6 Fr Short. 16:27:21 6 Fr LCB guide catheter was inserted over the wire 16::40 Heparin Bolus 5000 units I.V. was administered by Franck Casillas RN; for anticoagulation; verified with erma jones rn Verbal order read back and verified. 16::40 Integrilin (Bolus 2mg/ml) 6.2 ml I.V. was administered by Franck Casillas RN; for antiplatelet therapy; wasted 3.8 ml Verbal order read back and verified. 16:28:19 BMW wire advanced. 16:35:26 Inflate balloon Inflation number: 1 A EUPHORA 3.0 x 15 Balloon ([id number]) was prepped and advanced across the Aorta Left -> Mid CX , then inflated to 6 LINDA for 0:07 (min:sec) . 16:36:00 Inflation number: 2 The EUPHORA 3.0 x 15 Balloon ([id number]) was reinflated across the Aorta Left -> Mid CX , to 6 LINDA for 0:17 (min:sec) . 16:36:36 Inflation number: 3 The EUPHORA 3.0 x 15 Balloon ([id number]) was reinflated across the Aorta Left -> Mid CX , to 6 LINDA for 0:16 (min:sec) . 16:38:20 Balloon removed over the wire. 16:38:20 Wire removed. 16:38:21 Guide catheter removed. 16:38:31 Tegaderm 4 x 4 (1626W) opened to sterile field. 16:38:49 EXOSEAL 6Fr (EX600) opened to sterile field. 16:39:02 ACT Drawn. 16:39:08 Sheath removed intact; hemostasis achieved with Exoseal to the Right Femoral artery. 16:39:10 Procedure ended.(Physican Out) 16:40:25 Procedure ended.(Physican Out) 16:40:43 Fluoroscopy time 12.00 minutes. 16:40:52 Fluoroscopy dose: 2086 mGy 16:40:52 Flurop Dose total: 2086 16:40:57 Dose Area Product 134 mGy/cm. 16:41:00 Contrast amount:Isovue 370 200ml. 16:41:02 Maximum allowable dose exceeded? Yes. 16:41:03 Sharps counted by scrub and verified by R.N. 16:41:07 Insertion/operative site no bleeding no hematoma. 16:41:10 Post-op/insertion site Right Femoral artery dressed using a 4 x 4 and Tegaderm. 16:41:13 Post right femoral artery:stable, clean and dry 16:41:15 Post Procedure Pulses reassessed and unchanged 16:41:18 Post-procedure physical assessment completed. ASA score P 2 - A patient with mild systemic disease as per Isaac Blankenship MD. 16:41:20 Post procedure rhythm: unchanged. 16:41:24 Estimated blood loss: 10 ml 16:41:25 Post procedure instruction explained to patient.Patient verbalizes understanding. 16:41:25 Patient needs reinforcement of post procedure teaching. 16:41:29 Plavix 600 mg P.O. was administered by Franck Casillas RN; for antiplatelet therapy; Verbal order read back and verified. 16:41:29 Procedure Complication : No complications 16:41:33 Operative report dictated upon procedure completion. 16:41:33 See physician's report for complete and final results. 16:42:02 Procedure and supply charges have been captured, reviewed, submitted and are correct. 16:42:11 Report given to PCU. 16:43:27 ACT drawn and resulted at 241 seconds. (normal therapeutic range 180-240 seconds). 16:45:55 Vital chart was stopped 16:46:08 Patient transfered to PCU with Bed. 16:46:11 Procedure ended. 16:46:11 Full Disclosure recording stopped 16:48:15 Ewelina Counts RT(R) was relieved by Ewelina Counts RT(R) as monitoring person 16:48:35 Ewelina Counts RT(R) was relieved by Ewelina Counts RT(R) as monitoring person Intervention Summary Intervention Notes Time ActionType Lesion and Equipment Action# Pressure Duration Attributes Used 16:35:26 Inflate Aorta Left EUPHORA 1 6 00:08 balloon -> Mid CX 3.0 x 15 Balloon ([id number]) 16:36:00 Reinflate Aorta Left EUPHORA 2 6 00:17 balloon -> Mid CX 3.0 x 15 Balloon ([id number]) 16:36:36 Reinflate Aorta Left EUPHORA 3 6 00:16 balloon -> Mid CX 3.0 x 15 Balloon ([id number]) Device Usage Item Name Manufacture Quantity Catalog Hospital Part Current Minimal Lot# / Number Charge Number Stock Stock Serial# Code IV CATHETER B. Frazier 1 [id number] 586188 946301 936606 5 20g ACIST Acist 1 41044 152088 683711 076228 20 Syringe Medical (80229) Systems Inc Bag Microtek 1 2001S 421468 49776 384713 5 Decanter Medical Inc. () Medline Medline 1 [id number] 121504 50335 321484 5 Cath Pack ([id number]) ACIST Hand Acist 1 16978 899030 073424 558690 5 Control Medical (58308) Systems Inc ACIST Acist 1 89754 602771 163530 167777 5 Manifold Medical (17981) Systems Inc DIAGNOSTIC Cardinal 1 KA5699 010965 61423 713384 30 Multipack Health 5Fr catheter set (FC4955) SHEATH 5FR Terumo 1 HDK642 778598 449205 027179 5 Lorton (VDX694) EMERALD Cardinal 1 502-455 693290 562558 973399 5 Guide Wire Health (502455) MULTIPACK Cardinal 1 720482 5 JL 4.0 5Fr Health catheter MULTIPACK Cardinal 1 820163 5 3DRC 5Fr Health catheter GLIDE WIRE Terumo 1 AK6390 994619 543767 916268 5 ANGLE 260cm (FO7407) MULTIPACK Cardinal 1 057674 5 Pigtail 5 Health Fr catheter DIAGNOSTIC Cardinal 1 320400T 204798 982672 506664 5 LCB 5Fr Health catheter ([id number]) SHEATH 6FR Terumo 1 BLX875 104379 258690 570333 40 Lorton (WZJ967) INFLATOR Merit 1 GL0125 418401 509100 723425 15 Merit Medical BasixCompak (KV6834) GUIDE 6FR Medtronic 1 LA6LCB 780933 55100 525900 1 LCB catheter (LA6LCB) BMW 300cm Morse 1 [id number] 637779 886861 120675 5 [place] 2 Vascular J wire (8618912K) EUPHORA 3.0 Medtronic 1 [id number] 842432 291236 610502 5 [id number] x 15 Balloon ([id number]) Tegaderm 4 3M 1 1626W 273896 624877 823580 5 x 4 (1626W) EXOSEAL 6Fr Cardinal 1 EX600 391796 497790 201420 10 (EX600) Health Signature Audit [place] Stage Time Signature Unsigned Intra-Procedure 08/11/2020 Franck Casillas RN 4:47:59 PM Intra-Procedure 08/11/2020 Ewelina 4:48:29 PM Counts RT(R) Intra-Procedure 08/11/2020 Isaac Stiles 4:49:37 PM Grant CHILEL Signatures Performing Physician : Signature : Isaac Blankenship MD Date : Time : Monitor : Ewelina Signature : Counts RT Date : Time : Nurse : Franck Casillas RN Signature : Date : Time : [facility] [address] [place] [address]
[~2020-08-10 19:06] MED LIST changes: +CIALIS2.5 MG PO; +LANTUS INS100 UNITS/ SC
[2020-08-10 19:31] LABS: BASOPHILS 0.3 % (0-2); EOSINOPHILS 2.8 % (0-7); HEMATOCRIT 42.4 % (42.0-54.0); HEMOGLOBIN 14.3 g/dL (13.5-17.5); IMMATURE GRANULOCYTES 0.1 % (0-5); LYMPHOCYTE ABS# 1.95 10x3/uL (1.32-3.57); LYMPHOCYTES 20.9 % (15-50); MCH 31.6 pg (26.0-34.0); MCHC 33.7 g/dL (31.0-37.0); MCV 93.6 fL (80.0-100.0); MEAN PLATELET VOLUME 10.4 fL (7.4-10.4); MONOCYTES 9.7 % (2-11); NEUTROPHIL ABS# 6.17 10x3/uL (1.78-5.38); NEUTROPHILS 66.2 % (40-80); PLATELET COUNT 190 10x3/uL (130-400); RBC 4.53 10x6/uL (4.20-6.10); RDW 13.2 % (11.5-14.5); WBC 9.3 10x3/uL (4.8-10.8)
[2020-08-10 19:39] LABS: ANION GAP 14.2 mmol/L (8-16); CALCIUM 9.9 mg/dL (8.5-10.1); CREATININE - SERUM 1.6 mg/dL (0.6-1.3); POTASSIUM - SERUM 4.2 mmol/L (3.5-5.1)
[2020-08-10 19:40] LABS: INR 1.09 (0.85-1.17); PROTIME 13.1 SECONDS (11.6-15.0)
[2020-08-10 20:00] VITALS: BP 104/72
[2020-08-10 20:01] LABS: ALBUMIN 3.2 g/dL (3.4-5.0); BILIRUBIN - TOTAL 0.22 mg/dL (0.2-1.3); MAGNESIUM - SERUM 1.9 mg/dL (1.8-2.4); PROTEIN - SERUM 6.9 g/dL (6.4-8.2)
[2020-08-10 20:06] LABS: THYROID STIMULATING HORMONE 1.33 uIU/mL (0.36-3.74); TROPONIN-I 0.066 ng/mL (0.000-0.060)
[2020-08-10 21:00] VITALS: BP 119/79
[2020-08-10 22:59] VITALS: BP 112/71; BMI 25.5
--- NOTE | 2020-08-10 23:09 | NUR ---
RECEIVED REPORT FROM MONTSE FIERRO IN ER. ARRIVED TO FLOOR AT 2241 IN W/C. TRANSFERED SELF TO BED. ALERT AND ORIENTED X4. UP AD YOLY. HE DOES NOT KNOW HIS MEDICATIONS. SAID HIS GIVES THEM TO HIM. ATTEMPTED TO CALL SPOUSE WITH NO ANSWER. PT DOES STATE HE HAD HIS MEDICATION THIS MORNING. SPOUSE HAS WRITTEN OUT MEDICATIONS ON PAPER. AND HOW OFTEN HE TAKES THEM. ASSESSMENT COMPLETED. WILL REPORT TO [facility] IN AM TO SPEAK TO SPOUSE ABOUT MEDICATIONS.
[2020-08-11 04:00] VITALS: BP 112/53
--- NOTE | 2020-08-11 06:01 | NUR ---
IMAGING CALLED AND UNABLE TO DO MRI D/T PACEMAKER/DEFIBILATOR NOT COMPATABLE. IMAGING NOTIFIED DR. SMITH IN ER.
[2020-08-11 08:38] VITALS: BP 125/87
[2020-08-11 09:35] LABS: BASOPHILS 0.4 % (0-2); EOSINOPHILS 3.1 % (0-7); HEMATOCRIT 43.5 % (42.0-54.0); HEMOGLOBIN 14.8 g/dL (13.5-17.5); IMMATURE GRANULOCYTES 0.1 % (0-5); LYMPHOCYTE ABS# 1.85 10x3/uL (1.32-3.57); LYMPHOCYTES 24.5 % (15-50); MEAN PLATELET VOLUME 10.5 fL (7.4-10.4); MONOCYTES 9.3 % (2-11); NEUTROPHIL ABS# 4.72 10x3/uL (1.78-5.38); NEUTROPHILS 62.6 % (40-80); PLATELET COUNT 191 10x3/uL (130-400); RBC 4.63 10x6/uL (4.20-6.10); RDW 13.2 % (11.5-14.5); WBC 7.5 10x3/uL (4.8-10.8)
[2020-08-11 09:53] LABS: ANION GAP 13.7 mmol/L (8-16); CALCIUM 9.8 mg/dL (8.5-10.1); CARBON DIOXIDE 26.2 mmol/L (21.0-32.0); CHOL - HDL RATIO 4.2 ratio (2.3-4.9); CREATININE - SERUM 1.5 mg/dL (0.6-1.3); LDL-HDL RATIO 2.8 ratio (1.5-3.5); POTASSIUM - SERUM 3.9 mmol/L (3.5-5.1)
[2020-08-11 12:12] VITALS: BP 118/83
[2020-08-11 12:26] VITALS: Ht 175.3 cm; Wt 78.0 kg
[2020-08-11 12:43] LABS: KETONE NEGATIVE (NEGATIVE); NITRITE NEGATIVE (NEGATIVE)
[2020-08-11 12:44] LABS: BILIRUBIN NEGATIVE (NEGATIVE); UROBILINOGEN NORMAL mg/dL (< 2)
--- NOTE | 2020-08-11 15:05 | NUR ---
Lying in bed, awake/alert/oriented, T/R self ad katelyn, cont of B/B with BRPs per self ad katelyn, denies pain/other discomfort at this time, call light/phone/water within reach, no s/s of acute distress observed.
--- NOTE | 2020-08-11 15:40 | NUR ---
Off unit in stable condition via bed accompanied by hospital staff for procedure, no s/s of acute distress observed.
[2020-08-11 20:00] VITALS: BP 143/72
--- NOTE | 2020-08-11 22:48 | NUR ---
REPORT RECEIVED, PT A&O, LAYIN FLAT IN BED PER MDS ORDERS POST HEART CATH. NO S/S OF DISTRESS OBSERVED. RR EVEN & UNLABORED ON RA. IV TO R FA PATENT AND INFUSING NS VIA GRAVITY. DRESSING TO GROIN CLEAN AND DRY. REINFORCED DRESSING WITH NEW TEGADERM. BED LOCKED AND LOWERED, CL IN REACH. ASSESSMENT COMPLETE. WILL CONT POC.
[2020-08-12] VITALS: BP 119/96
[2020-08-12 04:00] VITALS: BP 103/65
[2020-08-12 06:12] LABS: BASOPHILS 0.5 % (0-2); EOSINOPHILS 2.4 % (0-7); HEMATOCRIT 44.5 % (42.0-54.0); HEMOGLOBIN 14.6 g/dL (13.5-17.5); IMMATURE GRANULOCYTES 0.2 % (0-5); LYMPHOCYTES 21.6 % (15-50); MCHC 32.8 g/dL (31.0-37.0); MCV 94.5 fL (80.0-100.0); MEAN PLATELET VOLUME 10.5 fL (7.4-10.4); MONOCYTES 8.5 % (2-11); NEUTROPHIL ABS# 6.51 10x3/uL (1.78-5.38); NEUTROPHILS 66.8 % (40-80); PLATELET COUNT 214 10x3/uL (130-400); RBC 4.71 10x6/uL (4.20-6.10); RDW 13.2 % (11.5-14.5)
[2020-08-12 06:15] LABS: WBC 9.7 10x3/uL (4.8-10.8)
[2020-08-12 06:31] LABS: ALBUMIN 3.2 g/dL (3.4-5.0); ANION GAP 12.7 mmol/L (8-16); BILIRUBIN - TOTAL 0.32 mg/dL (0.2-1.3); CALCIUM 9.4 mg/dL (8.5-10.1); CARBON DIOXIDE 27.4 mmol/L (21.0-32.0); CREATININE - SERUM 1.4 mg/dL (0.6-1.3); MAGNESIUM - SERUM 1.9 mg/dL (1.8-2.4); POTASSIUM - SERUM 4.1 mmol/L (3.5-5.1); PROTEIN - SERUM 7.1 g/dL (6.4-8.2)
[2020-08-12 08:12] VITALS: BP 121/71
--- NOTE | 2020-08-12 10:14 | NUR ---
I have reviewed this patient and I concur with the Shift Assessment completed by the Licensed Practical Nurse today this shift.
[2020-08-12] MEDS ORDERED: PLAVIX75 MG PO (10:48)
[2020-08-12] MEDS ORDERED: ENTRESTO 24 MG1 EACH PO (10:49)
--- NOTE | 2020-08-12 11:50 | NUR ---
DC INSTRUCTIONS GIVEN AT THIS TIME. IV REMOVED WITH CATH TIPS INTACT. DC PAPERWORK SIGNED BY
--- NOTE | 2020-08-12 12:00 | NUR ---
PATIENT WHEELED OUT AT THIS TIME WITH BELONINGS IN HAND. PATIENT RIDING IN 'S VEHICLE. NAD NOTED.
--- NOTE | 2020-08-12 13:38 | EC ---
PATIENT:HELGA OLSON DATE OF SERVICE: 08/10/20 SEX: M MEDICAL RECORD: [id number] DATE OF : [birth year] LOCATION:D.M2 D.211 AGE OF PATIENT: 69 ADMISSION DATE: 08/10/20 REFERRING PHYSICIAN: INTERPRETING PHYSICIAN: YANN RODRIGES MD ECHOCARDIOGRAM REPORT ECHO CHARGES 4 ECHO COMPLETE Date: 08/11/20 CLINICAL DIAGNOSIS: AFIB ECHOCARDIOGRAPHIC MEASUREMENTS (adult normal given) AC root (d.<3.7cm) 3.1 cm LV Septum d (<1.2 cm> 1.3 cm Valve Excursion 1.1 cm LV Septum (systole) 1.7 cm Left Atria (s.<4.0cm> 3.7 cm LVPW d(<1.2cm) 1.0 cm RV (d.<2.3cm) 2.4 cm LVPW (sytole) 1.3 cm LV diastole(<5.6CM) 6.0 cm MV E-F(>70mm/sec) cm LV systole 4.8 cm LVOT Diameter 1.9 cm MV exc.(>10mm) 1.2 cm Est.ejection fraction (50-75%) % DOPPLER: LVIT cm/sec A 58 cm/sec E 27 cm/sec LA cm/sec RVSP 17 mmHg LVOT 70 cm/sec AOP1/2T m/s Asc. Ao 104 cm/sec RVOT 52 cm/sec RA cm/sec PA 59 cm/sec AV Gradient Peak 4.4 mmHg AV Mean 2.3 mmHg AV Area 2.2 cm MV Gradient Peak 2.5 mmHg MV Mean 0.8 mmHg MV Area cm COMMENTS: Staging Technician: Julián SCHMIDT Supervising Chef: 3 Dr. Haddad TAPE# Pericardial Effusion N DATE OF SERVICE: Adequate 2D, color flow imaging, spectral Doppler and M-Mode Borderline LVH. LV internal dimension is normal. Wall motion is normal. EF is greater than or equal to 55%. Aortic valve is tricuspid. No evidence of stenosis by Doppler interrogation. Left atrium is normal at 3.7 cm. Mitral valve shows no prolapse. Trace MR. Right side is grossly normal. Trace TR. TRANSINT:[id number] Voice Confirmation ID: [id number] DOCUMENT ID: [id number] ECHOCARDIOGRAM REPORT [id number] HELGA OLSON YANN RODRIGES MD at 1338 CC: [id number] DICTATION DATE: 08/11/20 1526 ANALYTICS INTERN: 08/11/20 1558 DIS IN 08/12/20 [id number] [place] [address]
--- NOTE | 2020-08-12 13:38 | OP ---
PATIENT NAME: HELGA OLSON MEDICAL RECORD: [id number] :50 LOCATION:D.M2 D.2113 ADMISSION DATE:08/10/20 SURGEON: YANN RODRIGES MD DATE OF OPERATION: 08/11/2020 PROCEDURE: Left heart catheterization, plus aortic root, plus coronary artery bypass graft, plus intervention of the saphenous vein graft to circumflex, and right femoral artery approach. CATHETERS: A 5-Gibraltarian sheath, 5/4 left and right Omega, 5/4 pig. The procedure was well tolerated. The patient was returned to the [place]. Sheath removed. ExoSeal device placed. FINDINGS: Left ventriculography in 30-degree DE ANDA view shows global hypokinesis, reduced EF, estimated at 20% to 25%. CORONARY ANATOMY: LEFT MAIN: Left main is free of disease. LAD: LAD is free of disease. It does give rise to left and right collaterals and totally occluded right. CIRCUMFLEX: Totally occluded in the [place] portion. RIGHT CORONARY: Totally occluded. BYPASS GRAFTS: 1. CHA to the LAD is atretic at this point. 2. Saphenous vein graft to the circumflex shows a total occlusion of the anastomotic site. 3. Aortic root injections were done in difficulty assessing the left subclavian and assess for tortuosity of the ascending aorta. Next, a 5-Gibraltarian sheath exchanged for a 6-Gibraltarian sheath. LCB guiding catheter provided fair to poor guide catheters support followed by 300 cm BMW wire. We ballooned with a 3.0 balloon that showed improvement of 80% to 90% stenosis to approximately 20% residual. Given a small vessel and difficulty with guide support, not attempted to be stented at this point. Sheath closed with ExoSeal device. Plavix was loaded in the lab. IMPRESSION: Successful percutaneous transluminal coronary angioplasty, saphenous vein graft to the circumflex. The patient will be started on Plavix. Additionally, we will start Entresto given low LV function. Further based on clinical course. TRANSINT:[id number] Voice Confirmation ID: [id number] DOCUMENT ID: [id number] YANN RODRIGES MD at 1338 CC: [id number] DICTATION DATE: 08/11/20 1648 WATER RESOURCE ENGINEERING SPECIALIST: 08/11/20 2318 DIS IN 08/12/20 [facility] [address] [place] [address]
--- NOTE | 2020-08-12 16:27 | NUR ---
OT NOTE: PT COMPLETED SUPINE TO SIT WITH SPV. PT COMPLETED EOB SITTING WITH SPV. PT COMPLETED SIT TO STAND WITH CGA. PT COMPLETED FM/COORDINATION AXS WITH LUE. PT ROMAN/DOFF SHIRT AT EOB WITH SPV. [phone] THANK YOU,BJ BOYER
--- NOTE | 2020-08-13 12:49 | MORECARE ---
CASE MANAGEMENT DISCHARGE SUMMARY PATIENT: HELGA OLSON UNIT: [id number] ADM DATE: 08/10/20 AGE: 69 : 50 SEX: M ROOM/BED: D.[facility] AUTHOR: HAKAN,DOC PHYSICIAN: REFERRING PHYSICIAN: SADE DE LA ROSA MD DATE OF SERVICE: 08/13/20 Case Management Discharge Planning Summary COMMENTS ENTERED DATE: 08/13/20 12:41 CT COMMENT TYPE: Discharge Planning REVIEWER: Adry Melendez CM received notification that patient was under the care of [facility] prior to admit and plans to resume HHS with them CM faxed discharge records to [facility] and they plan to see patient today 08/13/20 ENTERED DATE: 08/12/20 12:22 CT COMMENT TYPE: Discharge Planning REVIEWER: Mara Michel CM received DC orders. Patient had left before I could see him. DCP REVIEW SUMMARY ANTICIPATED D/C DATE: EXPECTED LOS : CASE STATUS: DCP Initiated INITIAL REVIEW: 08/10/2020 INITIAL REVIEWER: Adry Melendez FINAL DISCHARGE DISPOSITION: : FINAL REVIEWER: Adry Melendez FINAL REVIEW DATE: DCP Focus Questions & Answers QUESTION: ANSWER : PATIENT: HELGA OLSON ENCOUNTER: [id number] MEDICAL RECORD#: [id number] ADMISSION DATE: 08/10/2020 DISCHARGE DATE: 08/12/2020 ATTENDING MD: SADE MORA : AGE: 69 MARITAL STATUS: M DC PLAN ID: [id number] FACILITY: [facility] PRINTED ON: 08/13/20 12:49 CT All edits/amendments must be made on the electronic document DICTATION DATE: 08/13/201248 SYSTEMS TECHNOLOGIST: CADEN 08/13/20 1249 RPT#: [id number] DC DATE:08/12/20 STATUS: DIS IN [facility] [address] [place] [address] END OF REPORT
--- NOTE | 2020-08-14 02:17 | MORECARE ---
CASE MANAGEMENT DISCHARGE SUMMARY PATIENT: HELGA OLSON UNIT: [id number] ADM DATE: 08/10/20 AGE: 69 : 50 SEX: M ROOM/BED: D.[facility] AUTHOR: HAKAN,DOC PHYSICIAN: REFERRING PHYSICIAN: SADE DE LA ROSA MD DATE OF SERVICE: 08/14/20 Case Management Discharge Planning Summary COMMENTS ENTERED DATE: 08/13/20 12:41 CT COMMENT TYPE: Discharge Planning REVIEWER: Adry Melendez CM received notification that patient was under the care of [facility] prior to admit and plans to resume HHS with them CM faxed discharge records to [facility] and they plan to see patient today 08/13/20 ENTERED DATE: 08/12/20 12:22 CT COMMENT TYPE: Discharge Planning REVIEWER: Mara Michel CM received DC orders. Patient had left before I could see him. DCP REVIEW SUMMARY ANTICIPATED D/C DATE: EXPECTED LOS : CASE STATUS: DCP Initiated INITIAL REVIEW: 08/10/2020 INITIAL REVIEWER: Adry Melendez FINAL DISCHARGE DISPOSITION: : FINAL REVIEWER: Adry Melendez FINAL REVIEW DATE: DCP Focus Questions & Answers QUESTION: ANSWER : PATIENT: HELGA OLSON ENCOUNTER: [id number] MEDICAL RECORD#: [id number] ADMISSION DATE: 08/10/2020 DISCHARGE DATE: 08/12/2020 ATTENDING MD: SADE MORA : AGE: 69 MARITAL STATUS: M DC PLAN ID: [id number] FACILITY: [facility] PRINTED ON: 08/14/20 2:17 CT All edits/amendments must be made on the electronic document DICTATION DATE: 08/14/20216 SUPERVISOR FORCE ADJUSTMENT: CADEN 08/14/20216 RPT#: [id number] DC DATE:08/12/20 STATUS: DIS IN [facility] [address] [place] [address] END OF REPORT
--- NOTE | 2020-08-19 11:13 | MORECARE ---
CASE MANAGEMENT DISCHARGE SUMMARY PATIENT: HELGA OLSON UNIT: [id number] ADM DATE: 08/10/20 AGE: 70 : 50 SEX: M ROOM/BED: D.[facility] AUTHOR: HAKAN,DOC PHYSICIAN: REFERRING PHYSICIAN: SADE DE LA ROSA MD DATE OF SERVICE: 08/19/20 Case Management Discharge Planning Summary COMMENTS ENTERED DATE: 08/13/20 12:41 CT COMMENT TYPE: Discharge Planning REVIEWER: Adry Melendez CM received notification that patient was under the care of [facility] prior to admit and plans to resume HHS with them CM faxed discharge records to [facility] and they plan to see patient today 08/13/20 ENTERED DATE: 08/12/20 12:22 CT COMMENT TYPE: Discharge Planning REVIEWER: Mara Michel CM received DC orders. Patient had left before I could see him. DCP REVIEW SUMMARY ANTICIPATED D/C DATE: EXPECTED LOS : CASE STATUS: DCP Initiated INITIAL REVIEW: 08/10/2020 INITIAL REVIEWER: Adry Melendez FINAL DISCHARGE DISPOSITION: : FINAL REVIEWER: Adry Melendez FINAL REVIEW DATE: DCP Focus Questions & Answers QUESTION: ANSWER : PATIENT: HELGA OLSON ENCOUNTER: [id number] MEDICAL RECORD#: [id number] ADMISSION DATE: 08/10/2020 DISCHARGE DATE: 08/12/2020 ATTENDING MD: SADE MORA : AGE: 70 MARITAL STATUS: M DC PLAN ID: [id number] FACILITY: [facility] PRINTED ON: 08/19/20 11:12 CT All edits/amendments must be made on the electronic document DICTATION DATE: 08/19/201111 CUSTOMER CARE ASSOCIATE: CADEN 08/19/201111 RPT#: [id number] DC DATE:08/12/20 STATUS: DIS IN [facility] [address] [facility] [place] [address] END OF REPORT
== END 2020-08-12 12:34 | disposition home health service (06) | DRG 251 ==
LOC: D.ER 19:06 → D.M2 21:16
PROVIDERS: Family Medicine; Internal Medicine Interventional Cardiology; ADMIT Emergency Medicine; ATTEND Emergency Medicine
PROC: B2111ZZ Fluoroscopy of Multiple Coronary Arteries using Low Osmolar Contrast (ICD-10-PCS; 2020-08-11)
PROC: B2151ZZ Fluoroscopy of Left Heart using Low Osmolar Contrast (ICD-10-PCS; 2020-08-11)
PROC: 4A023N7 Measurement of Cardiac Sampling and Pressure, Left Heart, Percutaneous Approach (ICD-10-PCS; 2020-08-11)
PROC: 02703ZZ Dilation of Coronary Artery, One Artery, Percutaneous Approach (ICD-10-PCS; principal; 2020-08-11 15:27)
PROC: B2131ZZ Fluoroscopy of Multiple Coronary Artery Bypass Grafts using Low Osmolar Contrast (ICD-10-PCS; 2020-08-11 15:27)
DX: I21.4 Non-ST elevation (NSTEMI) myocardial infarction (principal); G45.9 Transient cerebral ischemic attack, unspecified; I69.354 Hemiplegia and hemiparesis following cerebral infarction affecting left non-dominant side; N17.9 Acute kidney failure, unspecified; F17.203 Nicotine dependence unspecified, with withdrawal; E11.65 Type 2 diabetes mellitus with hyperglycemia; I25.10 Atherosclerotic heart disease of native coronary artery without angina pectoris; I10 Essential (primary) hypertension; Z95.0 Presence of cardiac pacemaker; Z85.118 Personal history of other malignant neoplasm of bronchus and lung

== ENCOUNTER 2020-08-23 18:34 | Inpatient (IN) | payer MEDICARE, OTHER ==
[~2020-08-23] VITALS: Ht 175.3 cm; Wt 79.5 kg
[~2020-08-23 18:34] MED LIST changes: +ENTRESTO 24 MG1 EACH PO
[2020-08-23 18:55] LABS: BASOPHILS 0.4 % (0-2); HEMATOCRIT 43.6 % (42.0-54.0); HEMOGLOBIN 14.8 g/dL (13.5-17.5); IMMATURE GRANULOCYTES 0.3 % (0-5); LYMPHOCYTE ABS# 3.03 10x3/uL (1.32-3.57); LYMPHOCYTES 28.1 % (15-50); MCHC 33.9 g/dL (31.0-37.0); MCV 94.4 fL (80.0-100.0); MEAN PLATELET VOLUME 10.1 fL (7.4-10.4); MONOCYTES 7.9 % (2-11); NEUTROPHIL ABS# 6.61 10x3/uL (1.78-5.38); NEUTROPHILS 61.3 % (40-80); PLATELET COUNT 221 10x3/uL (130-400); RBC 4.62 10x6/uL (4.20-6.10); RDW 13.4 % (11.5-14.5); WBC 10.8 10x3/uL (4.8-10.8)
[2020-08-23 19:06] LABS: CALC OSMOLALITY 282 mosm/kg (275-300); CALCIUM 9.6 mg/dL (8.5-10.1); CARBON DIOXIDE 28.3 mmol/L (21.0-32.0); CHLORIDE - SERUM 103 mmol/L (98-107); CREATININE - SERUM 1.6 mg/dL (0.6-1.3); SODIUM 139 mmol/L (136-145); UREA NITROGEN 17 mg/dL (7-18); eGFR NON AFRICAN AMERICAN 46 mL/min (90-120)
[2020-08-23 19:07] LABS: GLUCOSE 146 mg/dL (74-106)
[2020-08-23 19:17] VITALS: BP 130/83
[2020-08-23 19:20] LABS: ALBUMIN 3.4 g/dL (3.4-5.0); ALKALINE PHOSPHATASE 102 U/L (30-120); ALT (SGPT) 21 U/L (10-68); BILIRUBIN - TOTAL 0.27 mg/dL (0.2-1.3); CKMB 1.5 U/L (0.0-3.6); CREATINE KINASE 85 UL (21-232); MAGNESIUM - SERUM 1.9 mg/dL (1.8-2.4); PROTEIN - SERUM 7.2 g/dL (6.4-8.2); THYROID STIMULATING HORMONE 0.65 uIU/mL (0.36-3.74); TROPONIN-I 0.049 ng/mL (0.000-0.060)
[2020-08-23 19:45] LABS: APTT 30.4 SECONDS (22.8-39.4); INR 1.09 (0.85-1.17); PROTIME 13.1 SECONDS (11.6-15.0)
--- NOTE | 2020-08-23 19:51 | NUR ---
LATE ENTRY: PT DID NOT MEET CRITERIA FOR TPA PER [place] [facility]ES
[2020-08-23 20:31] VITALS: BP 127/84
[2020-08-23 20:48] LABS: BILIRUBIN NEGATIVE (NEGATIVE); KETONE NEGATIVE (NEGATIVE); NITRITE NEGATIVE (NEGATIVE); UROBILINOGEN NORMAL mg/dL (< 2)
[2020-08-23 21:06] LABS: UDS - AMPHET NEGATIVE QUAL (NEGATIVE); UDS - BARB NEGATIVE QUAL (NEGATIVE); UDS - BENZO NEGATIVE QUAL (NEGATIVE); UDS - COCAINE NEGATIVE QUAL (NEGATIVE); UDS - OPIATE NEGATIVE QUAL (NEGATIVE); UDS - PCP NEGATIVE QUAL (NEGATIVE); UDS - THC NEGATIVE QUAL (NEGATIVE)
[2020-08-23 21:58] VITALS: BP 131/86
--- NOTE | 2020-08-23 22:12 | NUR ---
REPORT CALLED TO ADDIS FIERRO WITH VERBAL ACKNOWLEDGEMENT OBTAINED, RN NOTIFIED ME THAT ROOM WAS NOT HEATHER AND SHE WOULD CALL WHEN ROOM WAS READY
[2020-08-24] VITALS: BP 124/78
[2020-08-24 04:22] VITALS: Ht 175.3 cm; Wt 79.5 kg
[2020-08-24 06:53] LABS: BASOPHILS 0.4 % (0-2); EOSINOPHILS 2.3 % (0-7); HEMATOCRIT 42.3 % (42.0-54.0); IMMATURE GRANULOCYTES 0.1 % (0-5); LYMPHOCYTE ABS# 1.65 10x3/uL (1.32-3.57); LYMPHOCYTES 24.2 % (15-50); MCH 31.2 pg (26.0-34.0); MCHC 33.1 g/dL (31.0-37.0); MCV 94.2 fL (80.0-100.0); MEAN PLATELET VOLUME 10.3 fL (7.4-10.4); MONOCYTES 8.5 % (2-11); NEUTROPHILS 64.5 % (40-80); PLATELET COUNT 194 10x3/uL (130-400); RBC 4.49 10x6/uL (4.20-6.10); RDW 13.6 % (11.5-14.5)
[2020-08-24 06:56] LABS: WBC 6.8 10x3/uL (4.8-10.8)
[2020-08-24 07:01] LABS: ANION GAP 12.9 mmol/L (8-16); CALCIUM 9.3 mg/dL (8.5-10.1); CARBON DIOXIDE 25.2 mmol/L (21.0-32.0); CREATININE - SERUM 1.2 mg/dL (0.6-1.3); MAGNESIUM - SERUM 2.1 mg/dL (1.8-2.4); POTASSIUM - SERUM 4.1 mmol/L (3.5-5.1); T4 THYROXIN - FREE 1.23 ng/dL (0.76-1.46); THYROID STIMULATING HORMONE 0.37 uIU/mL (0.36-3.74)
[2020-08-24 10:18] VITALS: BP 138/90
--- NOTE | 2020-08-24 12:35 | NUR ---
REHAB PRESCREEN RECEIVED. AT THIS TIME, PATIENTS PHYSICAL THERAPY, OCCUPATIONAL THERAPY, AND SPEECH THERAPY EVALUATIONS ARE PENDING. I WILL REVIEW THE CHART AGAIN LATER TO SEE IF HE WILL MEET THE NEED FOR 3 HOURS OF THERAPY AT LEAST 5 DAYS A WEEK. THANK YOU FOR THIS REFERRAL. RAJESH VILLAGOMEZ RN CLINICAL LIAISON, [facility].
[2020-08-24 14:00] VITALS: BP 134/89
[2020-08-24 17:54] VITALS: BP 127/88
--- NOTE | 2020-08-24 18:31 | NUR ---
IN BED RESTING. FREE FROM SIGNS OF DISTRESS. BED LOW POSITION, CALL LIGHT IN REACH. WILL CONTINUE TO MONITOR.
[2020-08-24 20:00] VITALS: BP 121/63
--- NOTE | 2020-08-24 20:00 | NUR ---
AROUSED EASILY, CONFUSED TO WHY HE IS IN HOSPITAL, SEE SHIFT ASSESSMENT, FALL PRECAUTIONS AND CIARA ALARM CIGAR HEAD PERFORATOR LIGHT IN REACH
[2020-08-25] VITALS: BP 134/83
[2020-08-25 04:00] VITALS: BP 112/60
[2020-08-25 06:56] LABS: BASOPHILS 1.4 % (0-2); EOSINOPHILS 2.3 % (0-7); HEMATOCRIT 43.7 % (42.0-54.0); HEMOGLOBIN 14.7 g/dL (13.5-17.5); LYMPHOCYTES 24.8 % (15-50); MCH 31.7 pg (26.0-34.0); MCHC 33.7 g/dL (31.0-37.0); NEUTROPHILS 64.5 % (40-80); PLATELET COUNT 206 10x3/uL (130-400); RBC 4.65 10x6/uL (4.20-6.10); RDW 13.3 % (11.5-14.5); WBC 6.9 10x3/uL (4.8-10.8)
[2020-08-25 07:18] LABS: ANION GAP 14.1 mmol/L (8-16); CALCIUM 9.7 mg/dL (8.5-10.1); CARBON DIOXIDE 27.1 mmol/L (21.0-32.0); CREATININE - SERUM 1.3 mg/dL (0.6-1.3); PHOSPHOROUS 3.1 mg/dL (2.5-4.9)
[2020-08-25 07:19] LABS: POTASSIUM - SERUM 5.2 mmol/L (3.5-5.1)
[2020-08-25 09:33] LABS: CHOL - HDL RATIO 4.5 ratio (2.3-4.9); LDL-HDL RATIO 2.9 ratio (1.5-3.5)
[2020-08-25 10:02] VITALS: BP 129/84
--- NOTE | 2020-08-25 11:24 | MORECARE ---
CASE MANAGEMENT DISCHARGE SUMMARY PATIENT: HELGA OLSON UNIT: [id number] ADM DATE: 08/24/20 AGE: 70 : 50 SEX: M ROOM/BED: D.2205 AUTHOR: HAKAN,DOC PHYSICIAN: REFERRING PHYSICIAN: SADE DE LA ROSA MD DATE OF SERVICE: 08/25/20 Case Management Discharge Planning Summary DCP REVIEW SUMMARY ANTICIPATED D/C DATE: EXPECTED LOS : CASE STATUS: DCP Initiated INITIAL REVIEW: 08/23/2020 INITIAL REVIEWER: Annika Garcia FINAL DISCHARGE DISPOSITION: 62 : Discharged/Trans to Rehab Facility Including Distinct Units of a Hospital FINAL REVIEWER: FINAL REVIEW DATE: DCP Focus Questions & Answers QUESTION: ANSWER : PATIENT: HELGA OLSON ENCOUNTER: [id number] MEDICAL RECORD#: [id number] ADMISSION DATE: 08/24/2020 DISCHARGE DATE: ATTENDING MD: SADE MORA : AGE: 70 MARITAL STATUS: M DC PLAN ID: [id number] FACILITY: [facility] PRINTED ON: 08/25/20 11:24 CT All edits/amendments must be made on the electronic document DICTATION DATE: 08/25/20 112 DUST MIXER: CADEN 08/25/20 1124 RPT#: [id number] DC DATE: STATUS: ADM IN [facility] [address] [place] [address] END OF REPORT
--- NOTE | 2020-08-25 11:36 | MORECARE ---
CASE MANAGEMENT DISCHARGE SUMMARY PATIENT: HELGA OLSON UNIT: [id number] ADM DATE: 08/24/20 AGE: 70 : 50 SEX: M ROOM/BED: D.2205 AUTHOR: HAKAN,DOC PHYSICIAN: REFERRING PHYSICIAN: SADE DE LA ROSA MD DATE OF SERVICE: 08/25/20 Case Management Discharge Planning Summary COMMENTS ENTERED DATE: 08/25/20 11:16 CT COMMENT TYPE: Discharge Planning REVIEWER: Annika Garcia CM met with patient to complete initial dc planning assessment. CM educated patient on the CM role and verbal consent given by patient to complete assessment. Patient lives at home with his spouse. At discharge patient plans to return home and feels this is a safe discharge. CM discussed availability of home health, rehab services, and medical equipment. Per patient's he continued to have weakness and confusion since the last time he was here. He was set up with [facility] and would like to continue it when he is discharged from inpatient rehab. He has been accepted to inpatient rehab and will be discharged there today. KATIANA signed and placed in chart. He has a walker, cane, wheelchair, and shower chair. He is a patient of Dr Boogie'srinivasan and uses [facility] [place]. Patient denied known discharge needs at this time. CM will continue to follow and will assist as needed with dc plans/needs. DCP REVIEW SUMMARY ANTICIPATED D/C DATE: EXPECTED LOS : CASE STATUS: DCP Initiated INITIAL REVIEW: 08/23/2020 INITIAL REVIEWER: Annika Garcia FINAL DISCHARGE DISPOSITION: 62 : Discharged/Trans to Rehab Facility Including Distinct Units of a Hospital FINAL REVIEWER: FINAL REVIEW DATE: DCP Focus Questions & Answers QUESTION: ANSWER : PATIENT: HELGA OLSON ENCOUNTER: [id number] MEDICAL RECORD#: [id number] ADMISSION DATE: 08/24/2020 DISCHARGE DATE: ATTENDING MD: SADE MORA : AGE: 70 MARITAL STATUS: M DC PLAN ID: [id number] FACILITY: [facility] PRINTED ON: 08/25/20 11:36 CT All edits/amendments must be made on the electronic document DICTATION DATE: 08/25/20 1136 CNA PER DIEM: DM 08/25/20 1136 RPT#: [id number] DC DATE: STATUS: ADM IN [facility] [address] [place] [address] END OF REPORT
--- NOTE | 2020-08-25 11:59 | MORECARE ---
CASE MANAGEMENT DISCHARGE SUMMARY PATIENT: HELGA OLSON UNIT: [id number] ADM DATE: 08/24/20 AGE: 70 : 50 SEX: M ROOM/BED: D.2205 AUTHOR: TEETEE MCCLENDON PHYSICIAN: REFERRING PHYSICIAN: SADE DE LA ROSA MD DATE OF SERVICE: 08/25/20 Case Management Discharge Planning Summary COMMENTS ENTERED DATE: 08/25/20 11:16 CT COMMENT TYPE: Discharge Planning REVIEWER: Annika Garcia CM met with patient to complete initial dc planning assessment. CM educated patient on the CM role and verbal consent given by patient to complete assessment. Patient lives at home with his spouse. At discharge patient plans to return home and feels this is a safe discharge. CM discussed availability of home health, rehab services, and medical equipment. Per patient's he continued to have weakness and confusion since the last time he was here. He was set up with [facility] and would like to continue it when he is discharged from inpatient rehab. He has been accepted to inpatient rehab and will be discharged there today. KATIANA signed and placed in chart. He has a walker, cane, wheelchair, and shower chair. He is a patient of Dr Borja and uses [facility] [place]. Patient denied known discharge needs at this time. CM will continue to follow and will assist as needed with dc plans/needs. DCP REVIEW SUMMARY ANTICIPATED D/C DATE: EXPECTED LOS : CASE STATUS: DCP Initiated INITIAL REVIEW: 08/23/2020 INITIAL REVIEWER: Annika Garcia FINAL DISCHARGE DISPOSITION: 62 : Discharged/Trans to Rehab Facility Including Distinct Units of a Hospital FINAL REVIEWER: FINAL REVIEW DATE: DCP Focus Questions & Answers DCP Screen QUESTION: ANSWER High Risk Factors: : Hosp related to CHF, COPD, DM, End Stage Ds, CVA, CA DCP Evaluation QUESTION: ANSWER Patient and/or caregiver agree upon recommended discharge plan? : Yes Family / Caregiver's ability to cope with chronic illness: : a. Adequate (ability to meet patient's medical needs, ensures patient attends medical appts.) Patient's current cognitive status: : Intermittently confused / memory changes Patient's ability to cope with chronic illness : d. No chronic illness Patient gives permission to discuss discharge plans with: (name, relationship and number) : SPOUSE Does the patient have the ability to pay for or attain post discharge needs / services? : Yes Functional screen assessment: : New onset in difficulty in gait, balance, or transfer difficulties Family / Caregiver's ability to cope with chronic illness: : a. Adequate (ability to meet patient's medical needs, ensures patient attends medical appts.) Physical Status: : Partial care dependence Is there a likelihood that the patient will require additional services to return to the preadmission environment? : No Functional screen comments: : OT/PT/SPEECH Living Arrangements: : Home with Spouse/Significant Other Partial Dependence, assistance required for: : Ambulation / Mobility Results of this evaluation have been discussed with: : Spouse Results of this evaluation have been discussed with: : Patient Patient with capacity for self-care or can be cared for in same environment as prior to hospitalization? : Yes Baseline cognitive status: : Intermittently confused / memory changes Baseline cognitive status: : *Oriented to person, place, situation, time and present Physical environment modification needed / anticipated for discharge: : No Medication Management: : Evidence of High Risk Meds (check hospital policy) Medication Management: : Patient states can afford medications Planned post hospital services available for patient? : Yes Pharmacy name(s): : [facility] Planned post hospital services covered by insurance plan? : Yes Does Patient have transportation to get home and to follow-up medical appointments when discharged from the hospital? : Yes Would patient like to participate in any Care Coordination programs (if applicable): : Not applicable Does the patient have electricity at home? : Yes Does the patient have running water in their house? : Yes Equipment in use: : Wheelchair Equipment in use: : Walker - Rolling Equipment in use: : Shower Chair Equipment in use: : Cane - Single Leg Mental health screen: : No mental health history Psychosocial status: : Independent adult (18-64) Abuse/Neglect: : None Resources / Services in place: : Home health Contact information for resources in use: : CURRENT WITH [facility] Re-evaluation QUESTION: ANSWER Would patient like to participate in any Care Coordination programs (if applicable): : Not applicable PATIENT: HELGA OLSON ENCOUNTER: [id number] MEDICAL RECORD#: [id number] ADMISSION DATE: 08/24/2020 DISCHARGE DATE: ATTENDING MD: SADE MORA : [birth year] AGE: 70 MARITAL STATUS: M DC PLAN ID: [id number] FACILITY: [facility] PRINTED ON: 08/25/20 11:59 CT All edits/amendments must be made on the electronic document DICTATION DATE: 08/25/201158 PRODUCE SERVICE TEAM MEMBER: CADEN 08/25/20 115 RPT#: [id number] DC DATE: STATUS: ADM IN [facility] [address] [place] [address] END OF REPORT
[2020-08-25 14:48] VITALS: BP 132/82
[2020-08-25] MEDS ORDERED: NICODERM CQ1 EAC3 TOPICAL (15:29)
--- NOTE | 2020-08-25 15:44 | NUR ---
PATIENT HAS BEEN ACCEPTED TO INPATIENT REHAB. I HAVE CALLED SRI REYNOLDSMATERIAL CHECKERBREAD STACKER AND JAHAIRA NOWAK RNLANDSCAPING CREW LEADER TO LET THEM KNOW THE PATIENT CAN GO TO RM [id number].
--- NOTE | 2020-08-25 16:23 | MORECARE ---
CASE MANAGEMENT DISCHARGE SUMMARY PATIENT: HELGA OLSON UNIT: [id number] ADM DATE: 08/24/20 AGE: 70 : 50 SEX: M ROOM/BED: D.2205 AUTHOR: TEETEE MCCLENDON PHYSICIAN: REFERRING PHYSICIAN: SADE DE LA ROSA MD DATE OF SERVICE: 08/25/20 Case Management Discharge Planning Summary COMMENTS ENTERED DATE: 08/25/20 11:16 CT COMMENT TYPE: Discharge Planning REVIEWER: Annika Garcia CM met with patient to complete initial dc planning assessment. CM educated patient on the CM role and verbal consent given by patient to complete assessment. Patient lives at home with his spouse. At discharge patient plans to return home and feels this is a safe discharge. CM discussed availability of home health, rehab services, and medical equipment. Per patient's he continued to have weakness and confusion since the last time he was here. He was set up with [facility] and would like to continue it when he is discharged from inpatient rehab. He has been accepted to inpatient rehab and will be discharged there today. KATIANA signed and placed in chart. He has a walker, cane, wheelchair, and shower chair. He is a patient of Dr Borja and uses [facility] [place]. Patient denied known discharge needs at this time. CM will continue to follow and will assist as needed with dc plans/needs. DCP REVIEW SUMMARY ANTICIPATED D/C DATE: EXPECTED LOS : CASE STATUS: DCP Initiated INITIAL REVIEW: 08/23/2020 INITIAL REVIEWER: Annika Garcia FINAL DISCHARGE DISPOSITION: 62 : Discharged/Trans to Rehab Facility Including Distinct Units of a Hospital FINAL REVIEWER: FINAL REVIEW DATE: DCP Focus Questions & Answers DCP Screen QUESTION: ANSWER High Risk Factors: : Hosp related to CHF, COPD, DM, End Stage Ds, CVA, CA DCP Evaluation QUESTION: ANSWER Patient and/or caregiver agree upon recommended discharge plan? : Yes Family / Caregiver's ability to cope with chronic illness: : a. Adequate (ability to meet patient's medical needs, ensures patient attends medical appts.) Patient's current cognitive status: : Intermittently confused / memory changes Patient's ability to cope with chronic illness : d. No chronic illness Patient gives permission to discuss discharge plans with: (name, relationship and number) : SPOUSE Does the patient have the ability to pay for or attain post discharge needs / services? : Yes Functional screen assessment: : New onset in difficulty in gait, balance, or transfer difficulties Family / Caregiver's ability to cope with chronic illness: : a. Adequate (ability to meet patient's medical needs, ensures patient attends medical appts.) Physical Status: : Partial care dependence Is there a likelihood that the patient will require additional services to return to the preadmission environment? : No Functional screen comments: : OT/PT/SPEECH Living Arrangements: : Home with Spouse/Significant Other Partial Dependence, assistance required for: : Ambulation / Mobility Results of this evaluation have been discussed with: : Spouse Results of this evaluation have been discussed with: : Patient Patient with capacity for self-care or can be cared for in same environment as prior to hospitalization? : Yes Baseline cognitive status: : Intermittently confused / memory changes Baseline cognitive status: : *Oriented to person, place, situation, time and present Physical environment modification needed / anticipated for discharge: : No Medication Management: : Evidence of High Risk Meds (check hospital policy) Medication Management: : Patient states can afford medications Planned post hospital services available for patient? : Yes Pharmacy name(s): : [facility] Planned post hospital services covered by insurance plan? : Yes Does Patient have transportation to get home and to follow-up medical appointments when discharged from the hospital? : Yes Would patient like to participate in any Care Coordination programs (if applicable): : Not applicable Does the patient have electricity at home? : Yes Does the patient have running water in their house? : Yes Equipment in use: : Wheelchair Equipment in use: : Walker - Rolling Equipment in use: : Shower Chair Equipment in use: : Cane - Single Leg Mental health screen: : No mental health history Psychosocial status: : Independent adult (18-64) Abuse/Neglect: : None Resources / Services in place: : Home health Contact information for resources in use: : CURRENT WITH [facility] Re-evaluation QUESTION: ANSWER Would patient like to participate in any Care Coordination programs (if applicable): : Not applicable PATIENT: HELGA OLSON ENCOUNTER: [id number] MEDICAL RECORD#: [id number] ADMISSION DATE: 08/24/2020 DISCHARGE DATE: 08/25/2020 ATTENDING MD: SADE MORA : AGE: 70 MARITAL STATUS: M DC PLAN ID: [id number] FACILITY: [facility] PRINTED ON: 08/25/20 16:23 CT All edits/amendments must be made on the electronic document DICTATION DATE: 08/25/201622 MOTORBOAT MECHANIC INBOARD: CADEN 08/25/201622 RPT#: [id number] DC DATE:08/25/20 STATUS: DIS IN [facility] [address] [place] [address] END OF REPORT
--- NOTE | 2020-08-25 16:26 | NUR ---
OT NOTE: PT COMPLETED SUPINE TO SIT WITH CGA. PT COMPLETED SIT TO STAND WITH CGA. PT REQUIRED CGA FOR ADL MOB. PT COMPLETED TOILETING WITH SBA. PT REQUIRED MIN A FOR TOILET HYGIENE. PT COMPLETED HAND HYGIENE WITH SETUP. [phone] THANK YOU,BJ BOYER
[2020-08-25] MEDS ORDERED: PEPCID AC20 MG PO (17:16)
[2020-08-25] MEDS ORDERED: BAYER CHEWABLE81 MG PO (17:16)
[2020-08-25] MEDS ORDERED: HUMALOG 30100 UNITS/ SC (17:17)
[2020-08-25] MEDS ORDERED: XOPENEX 1.1.25 MG/3 UPD (17:18)
[2020-08-25] MEDS ORDERED: ACETAMINOPHEN500 M1 PO (17:18)
[2020-08-25] MEDS ORDERED: ZOFRAN4 MG PO (17:19)
--- NOTE | 2020-08-26 08:46 | MORECARE ---
CASE MANAGEMENT DISCHARGE SUMMARY PATIENT: HELGA OLSON UNIT: [id number] ADM DATE: 08/24/20 AGE: 70 : 50 SEX: M ROOM/BED: D.2205 AUTHOR: TEETEE MCCLENDON PHYSICIAN: REFERRING PHYSICIAN: SADE DE LA ROSA MD DATE OF SERVICE: 08/26/20 Case Management Discharge Planning Summary COMMENTS ENTERED DATE: 08/25/20 11:16 CT COMMENT TYPE: Discharge Planning REVIEWER: Annika Garcia CM met with patient to complete initial dc planning assessment. CM educated patient on the CM role and verbal consent given by patient to complete assessment. Patient lives at home with his spouse. At discharge patient plans to return home and feels this is a safe discharge. CM discussed availability of home health, rehab services, and medical equipment. Per patient's he continued to have weakness and confusion since the last time he was here. He was set up with [facility] and would like to continue it when he is discharged from inpatient rehab. He has been accepted to inpatient rehab and will be discharged there today. KATIANA signed and placed in chart. He has a walker, cane, wheelchair, and shower chair. He is a patient of Dr Boogie'srinivasan and uses [facility] [place]. Patient denied known discharge needs at this time. CM will continue to follow and will assist as needed with dc plans/needs. DCP REVIEW SUMMARY ANTICIPATED D/C DATE: EXPECTED LOS : 0 CASE STATUS: DCP Complete INITIAL REVIEW: 08/23/2020 INITIAL REVIEWER: Annika Garcia FINAL DISCHARGE DISPOSITION: 62 : Discharged/Trans to Rehab Facility Including Distinct Units of a Hospital FINAL REVIEWER: Annika Garcia FINAL REVIEW DATE: 08/26/2020 DCP Focus Questions & Answers DCP Screen QUESTION: ANSWER High Risk Factors: : Hosp related to CHF, COPD, DM, End Stage Ds, CVA, CA DCP Evaluation QUESTION: ANSWER Patient and/or caregiver agree upon recommended discharge plan? : Yes Family / Caregiver's ability to cope with chronic illness: : a. Adequate (ability to meet patient's medical needs, ensures patient attends medical appts.) Patient's current cognitive status: : Intermittently confused / memory changes Patient's ability to cope with chronic illness : d. No chronic illness Patient gives permission to discuss discharge plans with: (name, relationship and number) : SPOUSE Does the patient have the ability to pay for or attain post discharge needs / services? : Yes Functional screen assessment: : New onset in difficulty in gait, balance, or transfer difficulties Family / Caregiver's ability to cope with chronic illness: : a. Adequate (ability to meet patient's medical needs, ensures patient attends medical appts.) Physical Status: : Partial care dependence Is there a likelihood that the patient will require additional services to return to the preadmission environment? : No Functional screen comments: : OT/PT/SPEECH Living Arrangements: : Home with Spouse/Significant Other Partial Dependence, assistance required for: : Ambulation / Mobility Results of this evaluation have been discussed with: : Spouse Results of this evaluation have been discussed with: : Patient Patient with capacity for self-care or can be cared for in same environment as prior to hospitalization? : Yes Baseline cognitive status: : Intermittently confused / memory changes Baseline cognitive status: : *Oriented to person, place, situation, time and present Physical environment modification needed / anticipated for discharge: : No Medication Management: : Evidence of High Risk Meds (check hospital policy) Medication Management: : Patient states can afford medications Planned post hospital services available for patient? : Yes Pharmacy name(s): : [facility], [address] Planned post hospital services covered by insurance plan? : Yes Does Patient have transportation to get home and to follow-up medical appointments when discharged from the hospital? : Yes Would patient like to participate in any Care Coordination programs (if applicable): : Not applicable Does the patient have electricity at home? : Yes Does the patient have running water in their house? : Yes Equipment in use: : Wheelchair Equipment in use: : Walker - Rolling Equipment in use: : Shower Chair Equipment in use: : Cane - Single Leg Mental health screen: : No mental health history Psychosocial status: : Independent adult (18-64) Abuse/Neglect: : None Resources / Services in place: : Home health Contact information for resources in use: : CURRENT WITH [facility] Re-evaluation QUESTION: ANSWER Would patient like to participate in any Care Coordination programs (if applicable): : Not applicable PATIENT: HELGA OLSON ENCOUNTER: [id number] MEDICAL RECORD#: [id number] ADMISSION DATE: 08/24/2020 DISCHARGE DATE: 08/25/2020 ATTENDING MD: SADE MORA : AGE: 70 MARITAL STATUS: M DC PLAN ID: [id number] FACILITY: [facility] PRINTED ON: 08/26/20 8:46 CT All edits/amendments must be made on the electronic document DICTATION DATE: 08/26/20845 CLINICAL IMPLEMENTATION SPECIALIST: CADEN 08/26/2046 RPT#: [id number] DC DATE:08/25/20 STATUS: DIS IN [facility] [address] [place] [address] END OF REPORT
== END 2020-08-25 16:14 | DRG 64 ==
LOC: D.ER 18:34 → D.MS 21:46 → OBSVTIME 21:47 → D.MS 08-24 17:00
PROVIDERS: Family Medicine; Family Medicine Adult Medicine; ADMIT Emergency Medicine; ATTEND Emergency Medicine
DX: I63.9 Cerebral infarction, unspecified (principal); I21.4 Non-ST elevation (NSTEMI) myocardial infarction; W07.XXXA Fall from chair, initial encounter; E78.5 Hyperlipidemia, unspecified; E11.22 Type 2 diabetes mellitus with diabetic chronic kidney disease; I12.9 Hypertensive chronic kidney disease with stage 1 through stage 4 chronic kidney disease, or unspecified chronic kidney disease; N18.30 Chronic kidney disease, stage 3 unspecified; I25.10 Atherosclerotic heart disease of native coronary artery without angina pectoris; Z86.73 Personal history of transient ischemic attack (TIA), and cerebral infarction without residual deficits; I71.4 Abdominal aortic aneurysm, without rupture; F17.200 Nicotine dependence, unspecified, uncomplicated; I48.91 Unspecified atrial fibrillation

== ENCOUNTER 2020-08-25 16:28 | Inpatient (IN) | payer MEDICARE, OTHER ==
[~2020-08-25] VITALS: Ht 175.3 cm; Wt 79.4 kg
[~2020-08-25 16:28] MED LIST changes: +NICODERM CQ1 EAC3 TOPICAL
[2020-08-25] MEDS ORDERED: PEPCID AC20 MG PO (17:16)
[2020-08-25] MEDS ORDERED: BAYER CHEWABLE81 MG PO (17:16)
[2020-08-25] MEDS ORDERED: HUMALOG 30100 UNITS/ SC (17:17)
[2020-08-25] MEDS ORDERED: XOPENEX 1.1.25 MG/3 UPD (17:18)
[2020-08-25] MEDS ORDERED: ACETAMINOPHEN500 M1 PO (17:18)
[2020-08-25] MEDS ORDERED: ZOFRAN4 MG PO (17:19)
--- NOTE | 2020-08-25 18:55 | NUR ---
BEDSIDE REPORT COMPLETE. RECEIVED PT LYING IN BED VISITING WITH . ALERT TO SELF ONLY. PT STATED IT WAS 1951 AND HE IS HERE TO HAVE SURGERY ON LEFT HIP D/T LEFT SIDE BEING SHORTER THAN RIGHT FROM A PREVIOUS FEMUR FX. REORIENTED PT TO TIME, PLACE, AND SITUATION. PT CAN BE EASILY REDIRECTED. PT CAN ONLY FOLLOW ONE COMMAND AT A TIME AND IS SOMEWHAT SLOW TO RESPOND. NO IV OR OXYGEN NOTED. PT DENIES ANY NEEDS OR PAIN. NO DISTRESS NOTED. CALL LIGHT AND URINAL WITHIN REACH. CIARA ALARM ON. CPOC
[2020-08-25 20:09] VITALS: BP 115/75
[2020-08-26 02:23] VITALS: BP 115/75; BMI 25.9
--- NOTE | 2020-08-26 02:39 | NUR ---
PT LYING IN BED ON LEFT SIDE EYES CLOSED RESTING. RR EVEN AND UNLABORED. CALL LIGHT WITHIN REACH. CIARA ALARM ON
[2020-08-26 06:02] LABS: BASOPHILS 0.8 % (0-2); EOSINOPHILS 2.2 % (0-7); HEMATOCRIT 44.8 % (42.0-54.0); HEMOGLOBIN 14.9 g/dL (13.5-17.5); MCH 31.4 pg (26.0-34.0); MCHC 33.3 g/dL (31.0-37.0); MCV 94.5 fL (80.0-100.0); MEAN PLATELET VOLUME 8.1 fL (7.4-10.4); MONOCYTES 5.9 % (2-11); NEUTROPHILS 66.1 % (40-80); PLATELET COUNT 206 10x3/uL (130-400); RBC 4.74 10x6/uL (4.20-6.10); RDW 13.3 % (11.5-14.5); WBC 8.2 10x3/uL (4.8-10.8)
[2020-08-26 06:13] LABS: ANION GAP 10.6 mmol/L (8-16); CALCIUM 9.1 mg/dL (8.5-10.1); CARBON DIOXIDE 30.3 mmol/L (21.0-32.0); CREATININE - SERUM 1.6 mg/dL (0.6-1.3)
[2020-08-26 06:14] LABS: POTASSIUM - SERUM 3.9 mmol/L (3.5-5.1)
[2020-08-26 08:00] VITALS: BP 98/74
--- NOTE | 2020-08-26 08:00 | NUR ---
SHIFT ASSMT COMPLETED.CL IN REACH.
[2020-08-26 08:09] VITALS: BP 98/74
--- NOTE | 2020-08-26 09:02 | NUR ---
PATIENT IS A CLIENT OF [address]
--- NOTE | 2020-08-26 11:38 | NUR ---
PATIENT ADMITTS TO [facility] FROM ACUTE FLOOR. HIS PCP IS DR. SHAW. DISCHARGE PLANS ARE FOR HIM TO RETURN TO HIS HOME. WILL CONTINUE TO FOLLOW WITH PATIENT.
[2020-08-26 13:46] VITALS: Ht 175.3 cm; Wt 79.4 kg
--- NOTE | 2020-08-26 16:00 | NUR ---
PLEASANTLY CONFUSED.CL IN REACH.ALARM ON FOR SAFETY.
--- NOTE | 2020-08-26 19:34 | NUR ---
AWAKE AND ALERT. SOME CONFUSION. RESPIRATIONS UNLABORED. NO DISTRESS NOTED. CALL LIGHT IN REACH.
[2020-08-26 20:05] VITALS: BP 122/74
--- NOTE | 2020-08-27 04:59 | RHP ---
PATIENT: HELGA OLSON MEDICAL RECORD: [id number] ACCOUNT: [id number] LOCATION:[id number] : 50 ADMISSION DATE: 08/25/20 REHABILITATION HISTORY AND PHYSICAL EXAMINATION POST ADMISSION PHYSICIAN EXAMINATION ADMITTING DIAGNOSES: Cerebrovascular accident with a left occipital lobe infarct. HISTORY OF PRESENT ILLNESS: The patient was admitted to [facility] line wel[facility]. He had a history of CVA in the past. The patient was admitted to the facility on 08/10/2020 for a non-ST segment elevation CA. He presented to the ED with reported fall and confusion. He was alert and awake, was able to answer some questions, but was a poor historian. Majority of his health information apparently had to come from previous records. The patient had evaluation by cardiology during his stay. He had a carotid Doppler, which showed less than 50% bilateral internal carotid artery stenosis. He apparently lives at home with his spouse and ambulates without assistive device. His does apparently help him with his meds. He was noted to be confused. The patient has been evaluated by PT and OT at this time. He is min assist for cty-qy-entai, lwv-lb-ubgcl, iwjpfa-zp-vys and scooting to the edge of the bed. He requires min assist to steady and walking. He reaches for wall zone, has quite noted instability. He ambulates with a slow kailash. They recommended inpatient rehab to improve his strength, gait and balance. Due to the events since prior to coming to the hospital, he has not really had much therapy. He did have home health per his at home. She did express some concern that the therapist did not seem concerned at the time that he was having CVA-like symptoms. He has had some medication adjustments and will need medication adjustments throughout his stay. We will continue to monitor his lab values, especially his chemistries. He will require intensive therapy to get back to his prior level of functioning. COMORBIDITIES: In this patient include altered mental status, bradycardia, coronary artery disease, chronic kidney disease, cognitive deficits, decrease in mobility, decrease in physical function, difficulty walking, dysarthria, electrolyte imbalance, excessive aphasia, hypertension, hyperkalemia, pacemaker placement, right side weakness, slurred speech, urinary incontinence and falls. PAST MEDICAL HISTORY: Significant for CVA in the past, hypertension, dyslipidemia, coronary artery disease, AFib, diabetes, lung cancer, nicotine dependence, history of femur fracture, non-ST segment elevation myocardial infarction. PAST SURGICAL HISTORY: Includes placement of an automatic internal defibrillator device, thrombectomy, CABG, PTCA and TURP. ALLERGIES: WELLBUTRIN AND BRILINTA. CURRENT MEDICATIONS: Include; 1. Effexor 150 mg daily. 2. Aspirin chewable 81 mg daily. 3. Pepcid 20 mg daily. 4. Nicoderm patch daily. 5. Plavix 75 mg daily. 6. Amiodarone 200 mg daily. HISTORY AND PHYSICAL [id number] HELGA OLSON 7. He is on a low resistance sliding scale with Humalog. 8. He is on Zofran 4 mg every 4 hours p.r.n. 9. Entresto one tab b.i.d. 10. Xopenex 1.25 mg daily. 11. Carvedilol 6.25 mg b.i.d. with meals. 12. MiraLax 17 grams in 8 ounces of water daily. HABITS: Does have a history of tobacco use. FAMILY HISTORY: Noncontributory. SOCIAL HISTORY: The patient hopes to return back home and get back to his prior level of functioning. REVIEW OF SYSTEMS: GENERAL: Does complain of weakness and fatigue. HEENT: Denies cold, cough or congestion. CARDIOVASCULAR: Denies any chest. PHYSICAL EXAMINATION: VITAL SIGNS: Stable, afebrile. GENERAL: An elderly gentleman in no acute distress upon exam. HEENT: Normocephalic and atraumatic. Mucosa moist. NECK: Supple with no lymphadenopathy. LUNGS: Clear at this time. No wheeze, rhonchi or rales. HEART: Irregular rate and rhythm. ABDOMEN: Soft, benign, nondistended. Positive bowel sounds times 4. EXTREMITIES: No clubbing, cyanosis or edema. NEUROLOGIC: The patient does have some weakness, especially on his right side. LABORATORY DATA: Admit labs show a white count of 8.2, H&H of 14 and 44 and platelet count is noted to be 206. Sodium is 140, potassium 3.9, BUN and creatinine of 15 and 1.6 and blood sugar is noted to be 144. ASSESSMENT: This is a 70-year-old gentleman admitted to the rehab with a working diagnosis of cerebrovascular accident. The patient has potential to make improvement. We instituted the following multidisciplinary therapies including not limited to physical, occupational, respiratory, speech, nutritional services, prosthetics and orthotics. Given his complex medical condition and risks for more complications, rehabilitation services cannot be provided at a low level of care such as longterm facility. PLAN: 1. Admit to [facility] for inpatient therapy to include the following disciplines; A. Physical therapy to improve gait all transfer skills and bed mobility to a modified independent level. B. Occupational therapy to improve activities of daily living. C. Case management to help with discharge planning and placement options. D. Nutrition to assist with nutritional needs. E. Rehabilitation nursing to assist in monitoring the patient's underlying medical condition and to assist with any type of bowel or bladder management. 2. The patient's current medication and medical care will be continued. 3. Will be placed on standard fall precautions. 4. The patient's estimated length of stay is approximately 7 to 10 days. HISTORY AND PHYSICAL [id number] HELGA OLSON 5. We will discuss this patient during care team staff meeting this week. TRANSINT:[id number] Voice Confirmation ID: [id number] DOCUMENT ID: [id number] CAROLINA notes whether there has been none or any medical/functional change since admission: - No change since preadmission screen. CAROLINA attests patient continues to be appropriate for IRF: - Continues to be appropriate. ORESTES ERNST MD at 0459 CC: [id number] DICTATION DATE: 08/26/20911 BEAD WIRE INSULATOR: 08/26/20 0945 ADM IN [facility] [address] [place] [address]
--- NOTE | 2020-08-27 05:01 | NUR ---
QUIET HOURS. NO ACUTE CHANGES IN CONDITION THIS SHIFT. RESTING IN BED WITH NO DISTRESS NOTED.
[2020-08-27 07:32] VITALS: BP 90/68
--- NOTE | 2020-08-27 08:00 | NUR ---
SHIFT ASSMT COMPLETED.
--- NOTE | 2020-08-27 20:00 | NUR ---
AWAKE AND ALERT. RESTING IN BED WITH RESPIRATIONS UNLABORED. NO DISTRESS NOTED. CALL LIGHT IN REACH.
[2020-08-27 20:23] VITALS: BP 123/80
--- NOTE | 2020-08-28 05:24 | NUR ---
QUIET HOURS. NO ACUTE CHANGES IN CONDITION THIS SHIFT. RESTING IN BED WITH NO DISTRESS NOTED. CALL LIGHT IN REACH.
[2020-08-28 06:21] LABS: BASOPHILS 0.8 % (0-2); EOSINOPHILS 1.8 % (0-7); HEMATOCRIT 43.8 % (42.0-54.0); HEMOGLOBIN 14.8 g/dL (13.5-17.5); LYMPHOCYTES 22.7 % (15-50); MCH 31.5 pg (26.0-34.0); MCHC 33.7 g/dL (31.0-37.0); MCV 93.4 fL (80.0-100.0); MEAN PLATELET VOLUME 8.3 fL (7.4-10.4); MONOCYTES 6.9 % (2-11); NEUTROPHILS 67.8 % (40-80); PLATELET COUNT 203 10x3/uL (130-400); RBC 4.69 10x6/uL (4.20-6.10); RDW 13.6 % (11.5-14.5); WBC 7.6 10x3/uL (4.8-10.8)
[2020-08-28 06:37] LABS: ANION GAP 11.3 mmol/L (8-16); CALCIUM 9.9 mg/dL (8.5-10.1); CARBON DIOXIDE 27.9 mmol/L (21.0-32.0); CREATININE - SERUM 1.6 mg/dL (0.6-1.3); POTASSIUM - SERUM 4.2 mmol/L (3.5-5.1)
[2020-08-28 07:57] VITALS: BP 105/56
--- NOTE | 2020-08-28 20:20 | NUR ---
PATIENT RECEIVED SITTING UP IN BED. ASSESSMENT & VITAL SIGNS DONE. NO C/O PAIN OR DISTRESS AT THIS TIME. BED LOW. ALARM ON. CALL LIGHT, BEDSIDE TABLE, & URINAL WITHIN REACH. WILL CONTINUE TO MONITOR.
[2020-08-28 20:24] VITALS: BP 107/71
--- NOTE | 2020-08-29 02:01 | NUR ---
I have reviewed this patient and I concur with the Shift Assessment completed by the Licensed Practical Nurse today this shift.
--- NOTE | 2020-08-29 04:02 | NUR ---
PATIENT EYES CLOSED. RESPIRATIONS 18 & EVEN. BED LOW. ALARM ON. CALL LIGHT, BEDSIDE TABLE, & URINAL WITHIN REACH. WILL CONTINUE TO MONITOR.
--- NOTE | 2020-08-29 04:08 | NUR ---
PATIENT ALARM SOUNDING. PATIENT OUT OF BED. UNSTEADY GAIT. PATIENT CONFUSED CANT FIND BATHROOM. PATIENT SAT DOWN IN WHEELCHAIR, PROPELLED SELF TO BATHROOM WITH THIS SHOWING PATIENT WHERE IT IS. PATIENT HAD VOID. RETURNED TO LOW BED PROPELLING SELF. WHEELCHAIR ALARM SOUNDING. PATIENT RETURNED TO LOW BED. ALARM ON. CALL LIGHT SHOWN HOW TO CALL FOR HELP. URINAL, BEDSIDE TABLE, & CALL LIGHT WITHIN REACH. WILL CONTINUE TO MONITOR.
[2020-08-29 09:26] VITALS: BP 98/61
--- NOTE | 2020-08-29 17:45 | NUR ---
PT RESTING IN BED WITH AT BEDSIDE CALL LIGHT IN REACH WILL MONITER
--- NOTE | 2020-08-29 17:57 | NUR ---
PT RESTING IN BED WITH EYES OPEN CALL LIGHT IN REACH WILL MONITER
[2020-08-29 19:00] VITALS: BP 103/55
--- NOTE | 2020-08-29 19:21 | NUR ---
PATIENT RECEIVED LAYING IN BED. ASSESSMENT & VITAL SIGNS DONE. NO C/O PAIN OR DISTRESS. ALARM ON. BEDSIDE TABLE, URINAL, & CALL LIGHT WITHIN REACH. WILL CONTINUE TO MONITOR.
--- NOTE | 2020-08-29 20:00 | NUR ---
PATIENT RECEIVED SITTING UP IN BED. ASSESSMENT & VITAL SIGNS DONE. NO C/O PAIN OR DISTRESS. BED LOW. ALARM ON. CALLIGHT, BEDSIDE TABLE WITHIN REACH. WILL CONTINUE TO MONITOR.
--- NOTE | 2020-08-30 02:01 | NUR ---
I have reviewed this patient and I concur with the Shift Assessment completed by the Licensed Practical Nurse today this shift.
--- NOTE | 2020-08-30 03:46 | NUR ---
PATIENT EYES CLOSED. RESPIRATIONS 18 & EVEN.NO C/O APIN OR DISTRESS. BED LOW. CALL LIGHT WITHIN REACH. WILL CONTINUE TO MONITOR.
[2020-08-30 07:00] VITALS: BP 115/84
--- NOTE | 2020-08-30 08:00 | NUR ---
PT RESTING IN BED WITH EYES OPEN CALL LIGHT IN REACH WILL MONITER
--- NOTE | 2020-08-30 18:06 | NUR ---
PT RESTING IN BED WITH EYES OPEN CALL LIGHT IN REACH NO PROBLEMS WILL MONITER
--- NOTE | 2020-08-30 19:18 | NUR ---
PATIENT RECEIVED SITTING UP IN BED. ASSESSMENT & VITAL SIGNS DONE. NO C/O PAIN OR DISTRESS AT THIS TIME. BED LOW. ALARM ON. CALL LIGHT,BEDSIDE TABLE, & URINAL WITHIN REACH. WILL CONTINUE TO MONITOR.
[2020-08-30 19:47] VITALS: BP 78/46
[2020-08-30 21:20] VITALS: BP 116/80
--- NOTE | 2020-08-30 23:39 | NUR ---
I have reviewed this patient and I concur with the Shift Assessment completed by the Licensed Practical Nurse today this shift.
--- NOTE | 2020-08-31 03:44 | NUR ---
PATIENT EYES CLOSED. RESPIRATIONS 18 & EVEN. BED L;OW. ALARM ON. CALL LIGHT, URINAL, & BESUDE TABLE WITHIN REACH. WILL CONTINUE TO MONITOR.
[2020-08-31 06:23] VITALS: BP 114/66
[2020-08-31 07:54] LABS: EOSINOPHILS 2.2 % (0-7); HEMOGLOBIN 15.5 g/dL (13.5-17.5); LYMPHOCYTES 22.8 % (15-50); MCH 31.2 pg (26.0-34.0); MCV 94.7 fL (80.0-100.0); MEAN PLATELET VOLUME 8.3 fL (7.4-10.4); MONOCYTES 6.6 % (2-11); NEUTROPHILS 67.4 % (40-80); PLATELET COUNT 217 10x3/uL (130-400); RBC 4.96 10x6/uL (4.20-6.10); RDW 13.2 % (11.5-14.5); WBC 7.1 10x3/uL (4.8-10.8)
[2020-08-31 08:04] LABS: ANION GAP 12.9 mmol/L (8-16); CARBON DIOXIDE 28.7 mmol/L (21.0-32.0); CREATININE - SERUM 1.6 mg/dL (0.6-1.3); POTASSIUM - SERUM 4.6 mmol/L (3.5-5.1)
--- NOTE | 2020-08-31 10:34 | NUR ---
HE HAS BEEN UP IN THE WHEELCHAIR THIS MORNING. HE TOOK HIS MEDICATIONS WITHOUT ANY PROBLEMS. HE IS IN THE BED SLEEPING NOW. THE CALL LIGHT IS WITHIN REACH AND THE BED ALARM IS ON.
--- NOTE | 2020-08-31 11:07 | NUR ---
Nutrition Follow-up: Diet: Diabetic PO intake: ~92% average x last 6 meals. He ate 100% of breakfast this AM. Last BM: 08/26/20 Wt: 175# (08/26/20) Meds noted: SSI Labs noted: BUN 20(H), Cr 1.6(H), GFR 46(L), Glu 174(H) Recommend continue current diet. Will continue to honor food preferences within diet restrictions. RD will re-assess 09/02/20.
--- NOTE | 2020-08-31 12:27 | NUR ---
SPOKE WITH PATIENT SPOUSE AND IF NEEDED AT DISCHARGE SHE WOULD LIKE A REFERRAL TO [facility]. WILL CONTINUE TO FOLLOW WITH PATIENT AND WILL VISIT WITH SPOUSE AGAIN AT THE NEXT MEETING.
[2020-08-31 16:12] VITALS: BP 97/61
--- NOTE | 2020-08-31 19:11 | NUR ---
AWAKE AND ALERT BUT CONFUSED. RESTING IN BED WITH RESPIRAITONS UNLABORED. HAS NOT EATEN HIS EVENING MEAL. STATES HE DOESNT WANT IT RIGHT NOW. LEFT IN HIS ROOM. I TOLD HIM I WOULD WARM IT UP WHEN HE WAS READY TO EAT. VOICES UNDERSTANDING. NO ACUTE DISTRESS NOTED. CALL LIGHT IN REACH. BED ALARM ON.
[2020-08-31 20:00] VITALS: BP 97/70
--- NOTE | 2020-09-01 00:17 | NUR ---
RESTING IN BED WITH EYES CLOSED AND RESPIRAITONS UNLABORED. NO DISTRESS NOTED.
--- NOTE | 2020-09-01 02:21 | NUR ---
SLEEPING WITH RESPIRATIONS UNLABORED. NO DISTRESS NOTED.
--- NOTE | 2020-09-01 05:04 | NUR ---
QUIET HOURS. NO ACUTE CHANGES IN CONDITION THIS SHIFT. RESTING IN BED WITH NO DISTRESS NOTED.
[2020-09-01 08:05] VITALS: BP 113/64
--- NOTE | 2020-09-01 08:26 | NUR ---
HE IS WORKING WITH PT, WALKING IN THE HALLWAYS. HE IS HAVING BREAKFAST IN THE GYM. HE TOOK HIS MEDICATIONS WITHOUT ANY PROBLEMS. THE CHAIR ALARM IS ON.
[2020-09-01 20:16] VITALS: BP 104/72
--- NOTE | 2020-09-01 20:32 | NUR ---
AWAKE AND ALERT. RESTING IN BED WITH RESPIRATIONS UNLABORED. NO DISTRESS NOTED. NOTED CONFUSED. SAFETY MEASURES IN PLACE.
--- NOTE | 2020-09-02 05:22 | NUR ---
NO ACUTE CHANGES IN CONDITION THIS SHIFT. RESTING IN BED WITH NO DISTRESS NOTED. WAS UP IN WHEELCHAIR UNTIL AROUND 2 AM. THEN WENT TO BED AND SLEPT.
[2020-09-02 07:14] LABS: BASOPHILS 0.8 % (0-2); EOSINOPHILS 2.6 % (0-7); HEMATOCRIT 46.6 % (42.0-54.0); HEMOGLOBIN 15.4 g/dL (13.5-17.5); LYMPHOCYTES 33.1 % (15-50); MCH 31.1 pg (26.0-34.0); MCV 94.3 fL (80.0-100.0); MEAN PLATELET VOLUME 8.2 fL (7.4-10.4); MONOCYTES 9.1 % (2-11); NEUTROPHILS 54.4 % (40-80); PLATELET COUNT 178 10x3/uL (130-400); RBC 4.94 10x6/uL (4.20-6.10); WBC 7.3 10x3/uL (4.8-10.8)
[2020-09-02 07:40] LABS: ANION GAP 14.5 mmol/L (8-16); CARBON DIOXIDE 27.2 mmol/L (21.0-32.0); CREATININE - SERUM 1.7 mg/dL (0.6-1.3); POTASSIUM - SERUM 4.7 mmol/L (3.5-5.1)
[2020-09-02 07:57] VITALS: BP 113/67
--- NOTE | 2020-09-02 08:00 | NUR ---
PATIENT IS ALERT WITH CONFUSION. BED ALARM ON. CALL LIGHT WITHIN REACH. SITTING UP IN BED TO EAT BREAKFAST. VOICES NO NEEDS AT THIS TIME. WILL CONTINUE WITH PLAN OF CARE
--- NOTE | 2020-09-02 12:00 | NUR ---
I have reviewed this patient and I concur with the Shift Assessment completed by the Licensed Practical Nurse today this shift.
--- NOTE | 2020-09-02 12:00 | NUR ---
IN ROOM VISITING WITH PATIENT. WAITING TO GO TO THE CARE PLAN MEETING
--- NOTE | 2020-09-02 13:38 | NUR ---
CARE TEAM MEETING: PATIENT SPOUSE AND SON ATTENDED THE MEETING. THEIR QUESTIONS AND CONCERNS WERE ADDRESSED.A REFERRAL WILL BE MADE TO [facility] WILL CONTINUE TO FOLLOW WITH PATIENT.
--- NOTE | 2020-09-02 14:06 | NUR ---
Nutrition Re-Assessment Diet: Diabetic PO intake: ~67% average x last 9 meals (varied 0-100%). He ate 100% of breakfast this AM. 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 Nutrition goals: -PO intake =/>75% meals -Meet fluid needs -Stable weight DHS -Blood glucose to trend WNL Recommendations/Interventions: -Recommend continue current diet. Will continue to honor food preferences within diet restrictions. -Will continue to monitor PO intake and wt trend. -Offer oral nutrition supplements if PO intake trends <65% average. -RD will follow-up within 7 days.
--- NOTE | 2020-09-02 15:24 | NUR ---
PATIENT RESTING WELL. EYES CLOSED. BREATH SOUNDS EVEN. CALL LIGHT WITHIN REACH
--- NOTE | 2020-09-02 19:00 | NUR ---
ROUNDS MADE, PT RESTING WITH EYES CLOSED, RESP QUIET, NO DISTRESS NOTED, LEFT UNDISTURBED AT THIS TIME
[2020-09-02 19:55] VITALS: BP 103/64
--- NOTE | 2020-09-02 20:54 | NUR ---
ASSESSMENT PER FLOW SHEET, OBTAINED FSBS, ADM 2100 MEDS PER MD ORDERS, SEE EMAR, PT DENIES NEEDS OR PAIN, PT CONTINUES SITTING UP IN WC AT THIS TIME
--- NOTE | 2020-09-02 21:42 | NUR ---
PT SITTING UP IN WC, TALKING ON CELL PHONE
--- NOTE | 2020-09-02 22:29 | NUR ---
PT RESTING WITH EYES CLOSED, RESP QUIET, NO DISTRESS NOTED, LEFT UNDISTURBED AT THIS TIME
--- NOTE | 2020-09-03 00:41 | NUR ---
PT RESTING WITH EYES CLOSED, RESP QUIET, NO DISTRESS NOTED, LEFT UNDISTURBED AT THIS TIME
--- NOTE | 2020-09-03 02:15 | NUR ---
PT RESTING WITH EYES CLOSED, RESP QUIET, NO DISTRESS NOTED, LEFT UNDISTURBED AT THIS TIME
--- NOTE | 2020-09-03 04:38 | NUR ---
PT RESTING WITH EYES CLOSED, RESP QUIET, NO DISTRESS NOTED, LEFT UNDISTURBED AT THIS TIME
--- NOTE | 2020-09-03 06:39 | NUR ---
PT RESTING WITH EYES CLOSED, AROUSES TO SOFT VERBAL STIMULATION, OBTAINED FSBS, DENIES NEEDS OR MEDS AT THIS TIME
[2020-09-03 07:24] VITALS: BP 107/53
--- NOTE | 2020-09-03 07:27 | NUR ---
PT RESTING IN BED WITH EYES OPEN CALL LIGHT IN REACH NO PROBLEMS WILL MONITER
--- NOTE | 2020-09-03 18:37 | NUR ---
PT RESTING IN BED WITH EYES OPEN CALL LIGHT IN REACH NO PROBLEMS WILL MONITER
[2020-09-03 20:02] VITALS: BP 118/66
--- NOTE | 2020-09-04 01:18 | NUR ---
PT WOKE UP AND GOT OUT OF BED AND INTO THE WHEELCHAIR. HE IS VERY CONFUSED. HE IS ASKING WHERE HIS IS, HOW SHE GOT HOME, WHY SHE DIDNT STAY THE NIGHT AND HE DOES NOT KNOW WHERE HE IS OR HOW HE GOT HERE. ATTEMPTED TO REORIENT BUT HE REMAINS CONFUSED. HE CAME INTO THE [place] WITH HIS WHEELCHAIR AND WAS LOOKING AROUND. HE KEEPS ASKING WHY HIS LEFT AND IS SHE OKAY. HE IS CURRENTLY SITTING IN HIS WHEELCHAIR AT THE NURSES STATION. THE CHAIR ALARM IS ON. WILL CONTINUE TO REORIENT AND ASSIST TO AND FROM HIS BED NEEDED.
[2020-09-04 07:12] LABS: ANION GAP 11.7 mmol/L (8-16); CALCIUM 9.5 mg/dL (8.5-10.1); CARBON DIOXIDE 27.6 mmol/L (21.0-32.0); CREATININE - SERUM 1.6 mg/dL (0.6-1.3); POTASSIUM - SERUM 4.3 mmol/L (3.5-5.1)
[2020-09-04 08:00] VITALS: BP 121/84
--- NOTE | 2020-09-04 08:00 | NUR ---
PT RESTING IN BED WITH EYES OPEN CALL LIGHT IN REACH WILL MONITER
--- NOTE | 2020-09-04 10:09 | NUR ---
REFERRAL HAS BEEN FAXED TO [facility] PER PATIENT SPOUSE REQUEST . WILL CONTINUE TO FOLLOW WITH PATIENT.
--- NOTE | 2020-09-04 11:50 | NUR ---
PATIENT HAS BEEN ACCPETED TO [facility] AND WILL DISCHARGE THERE 09/08/20. SPOUSE HAS BEEN NOTIFIED. WILL CONTINUE TO FOLLOW WITH PATIENT.
--- NOTE | 2020-09-04 17:50 | NUR ---
PT RESTING IN BED WITH EYES OPEN CALL LIGHT IN REACH NO PROBLEMS WILL MONITER
[2020-09-04 19:45] VITALS: BP 86/58
--- NOTE | 2020-09-04 20:00 | NUR ---
PATIENT RECEIVED SITTING UP IN BED. ASSESSMENT & VITAL SIGNS DONE. NO C/O PAIN OR DISTRESS. BED LOW. ALARM ON. CALL LIGHT WITHIN REACH. WILL CONTINUE TO MONITOR.
--- NOTE | 2020-09-05 01:24 | NUR ---
I have reviewed this patient and I concur with the Shift Assessment completed by the Licensed Practical Nurse today this shift.
--- NOTE | 2020-09-05 01:58 | NUR ---
PATIENT EYES CLOSED. RESPIRATIONS 18 & EVEN. BED LOW. ALARM ON. CALL LIGHT WITHIN REACH. WILL CONTINUE TO MONITOR.
[2020-09-05 07:00] VITALS: BP 118/68
--- NOTE | 2020-09-05 08:00 | NUR ---
HE IS SETTING UP IN THE WHEELCHAIR FOR BREAKFAST. HE TOOK HIS MEDICATIONS WITHOUT ANY PROBLEMS. THE CALL LIGHT IS WITHIN REACH AND THE BED ALARM IS ON.
[2020-09-05 19:00] VITALS: BP 103/68
--- NOTE | 2020-09-05 19:25 | NUR ---
PATIENT RECIEVED SITTING UP IN BED. ASSESSMENT & VITAL SIGNS DONE. NO C/O PAIN OR DISTRESS AT THIS TIME. ALARM ON. CALL LIGHT WITHIN REACH. BED LOW. WILL CONTINUE TO MONITOR.
--- NOTE | 2020-09-06 05:19 | NUR ---
I have reviewed this patient and I concur with the Shift Assessment completed by the Licensed Practical Nurse today this shift.
[2020-09-06 07:00] VITALS: BP 120/68
--- NOTE | 2020-09-06 07:50 | NUR ---
HE IS SETTING UP IN BED. HE WAS ASKING ABOUT BREAKFAST, BUT THEN THE FOOD CAME HE DID NOT WANT IT. HE ATE IT ABOUT 10 MINUTES LATER. HE IS CONFUSED THIS MORNING. HIS CONVERSATION DOES NOT MAKE SENSE. THE CALL LIGHT IS WITHIN REACH AND THE BED ALARM IS ON.
[2020-09-06 16:35] VITALS: BP 95/72
--- NOTE | 2020-09-06 19:48 | NUR ---
PATIENT RECEIVED SITTING UP IN BED. ASSESSMENT & VITAL SIGNS DONE. BED LOW. ALARM ON. BEDSIDE TABLE WITHIN REACH. WILL CONTINUE TO MONITOR.
[2020-09-06 19:51] VITALS: BP 102/48
--- NOTE | 2020-09-07 04:03 | NUR ---
PATIENT AWAKE & AT DESK DRINKING COFFEE. PATIENT NOT TIRED. IS TIRED OF BEING IN BED. WAITING FOR BREAKFAST. PATIENT PROPELS IN HALLWAY & BACK TO NURSES STATION. WHEELCHAIR ALARM ON.
--- NOTE | 2020-09-07 04:21 | NUR ---
I have reviewed this patient and I concur with the Shift Assessment completed by the Licensed Practical Nurse today this shift.
--- NOTE | 2020-09-07 06:23 | NUR ---
PATIENT OBSESSING ABOUT & GOING HOME. OUT OF BED SINCE 4 AM. PATIENT INFORMED HE IS GOING HOME TOMORROW. PATIENT IN WHEELCHAIR. ALARM ON. WILL CONTINUE TO MONITOR.
[2020-09-07 07:00] VITALS: BP 107/52
--- NOTE | 2020-09-07 08:00 | NUR ---
PT RESTING IN BED VERY CONFUSED ASKING FOR HIS ASKING WHY SHE LEFT HIM HERE AND WHY HE CANT GO HOME TRYED TO REDIRECT PATIENT AND REORIENT WILL MONITRADHA
[2020-09-07 08:27] LABS: BASOPHILS 0.7 % (0-2); EOSINOPHILS 1.2 % (0-7); HEMOGLOBIN 16.2 g/dL (13.5-17.5); LYMPHOCYTES 19.2 % (15-50); MCH 31.3 pg (26.0-34.0); MCV 94.6 fL (80.0-100.0); MEAN PLATELET VOLUME 9.1 fL (7.4-10.4); MONOCYTES 5.2 % (2-11); NEUTROPHILS 73.7 % (40-80); PLATELET COUNT 177 10x3/uL (130-400); RBC 5.18 10x6/uL (4.20-6.10); RDW 13.2 % (11.5-14.5); WBC 9.6 10x3/uL (4.8-10.8)
[2020-09-07 08:50] LABS: ANION GAP 12.4 mmol/L (8-16); CALCIUM 9.9 mg/dL (8.5-10.1); CARBON DIOXIDE 26.7 mmol/L (21.0-32.0); CREATININE - SERUM 1.8 mg/dL (0.6-1.3); POTASSIUM - SERUM 4.1 mmol/L (3.5-5.1)
--- NOTE | 2020-09-07 18:40 | NUR ---
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 LEXIE CARTER
--- NOTE | 2020-09-07 19:00 | NUR ---
ARRIVED TO UNIT TO TAKE OVER CARE FOR MR. OLSON. HE WAS BROUGHT TO THE NURSES STATION IN HIS WHEELCHAIR DUE TO HIM NOT STAYING IN THE BED BY THE DAYSHIFT NURSE. HE IS CONFUSED AND UNABLE TO BE REDIRECTED OR REORIENTED. HE KEEPS STATING HE IS GOING TO GO OUTSIDE AND GET IN HIS TRUCK. HE STATED "I AM GOING TO CHEW HIS 'S ASS OUT FOR LEAVING HIM HERE. AND HE TOLD THE CHARGE NURSES FROM DAY AND MANAGER [employer] THAT HIS WAS GOING TO STOMP THEIR ASSES FOR NOT LETTING HIM LEAVE." HE KEPT TRYING TO GET OUT OF THE WHEELCHAIR AND WOULD RUN HIS WHEELCHAIR INTO THE NURSES WHILE STATING HE WANTS TO LEAVE. AFTER ABOUT 20 MINUTES OF THIS, WE WERE ABLE TO TALK HIM INTO GETTING BACK IN BED AND WATCHING TV. HE AGREED. ASSISTED HIM TO THE BED. WAITING METAL BENDING MACHINE OPERATOR BACK FROM MD FOR FURTHER ORDERS. CHARGE NURSE IS TALKING TO HIS ABOUT SOMEONE COMING TO SIT WITH HIM AND OUR PERSONAL PROPERTY ASSESSOR WAS NOTIFIED OF THIS ISSUE. BED ALARM ON, BED LOW AND CALL LIGHT IS WITHIN REACH.
[2020-09-07 19:45] VITALS: BP 110/58
--- NOTE | 2020-09-07 19:49 | NUR ---
CALLED AND TEXT DR. ERNST IN REGARDS TO PT BEING AGITATED AND VERBAL AGGRESSION.
--- NOTE | 2020-09-07 20:00 | NUR ---
CALLED PT IN REGARDS TO NEEDING FAMILY TO SIT WITH PT. PT ADONIS INFORMED THAT THERE WAS NOONE TO COME SIT WITH PT. ADONIS GAVE CONSENT FOR US TO GIVE PT A PRN TO HELP WITH AGGRESSION/AGITATION.
--- NOTE | 2020-09-07 20:54 | NUR ---
DR. ERNST ORDERED ATIVAN 1MG Q4HP.
--- NOTE | 2020-09-07 22:15 | NUR ---
PT RESTING WITH EYES CLOSED. AROUSES EASILY. CHECKED BLOOD SUGAR AND IT IS 105. HE APPEARS CALM AND RELAXED. GAVE HIM THE ATIVAN ORDERED BY MD AROUND 2129. HE IS LESS ANXIOUS AND IS NOT TRYING TO GET OUT OF THE BED. BED ALARM IS ON, BED IS LOW AND CALL LIGHT IS WITHIN REACH.
--- NOTE | 2020-09-08 02:46 | NUR ---
PT RESTING WITH EYES CLOSED. RESPIRATIONS EVEN AND UNLABORED. HIS BED ALARM IS ON AND CALL LIGHT IS WITHIN REACH.
[2020-09-08 07:41] VITALS: BP 90/56
--- NOTE | 2020-09-08 10:10 | NUR ---
PATIENT DISCHARGING TO [facility] VIA FACILITY VAN. NO NEW DME OR HOME HEALTH NEEDED AT THIS TIME. KATIANA SIGNED, IMM SERVED AND EXPLAINED, ONE GIVEN TO PATIENT AND ONE FILED IN CHART. NO COMPARE DATA REVIEWED , PTATIENT SPOUSE CHOSE FACILITY. FAICLITY WILL MAKE FOLLOW WUP APPOINTMENT WITH DR. RU SHAW AT TIME OF DISCHARGE FROM [facility]. DC INSTRUCTIONS HAVE BEEN FAXED TO PCP, FACILITY AND REVIEWED WITH SPOUSE. .
--- NOTE | 2020-09-08 16:18 | NUR ---
[facility] HERE TO TRANSPORT PT TO [facility]ULANCE.SON FOLLOWING IN HIS OWN VEHICLE.PT TOLERATED WELL
== END 2020-09-08 16:33 | DRG 56 ==
LOC: D.REHAB 16:28
PROVIDERS: ADMIT Emergency Medicine; ATTEND Emergency Medicine
DX: I69.30 Unspecified sequelae of cerebral infarction (principal); I21.4 Non-ST elevation (NSTEMI) myocardial infarction; R47.01 Aphasia; I12.9 Hypertensive chronic kidney disease with stage 1 through stage 4 chronic kidney disease, or unspecified chronic kidney disease; I25.10 Atherosclerotic heart disease of native coronary artery without angina pectoris; R41.89 Other symptoms and signs involving cognitive functions and awareness; R26.2 Difficulty in walking, not elsewhere classified; R47.1 Dysarthria and anarthria; E87.8 Other disorders of electrolyte and fluid balance, not elsewhere classified; E87.5 Hyperkalemia; Z95.0 Presence of cardiac pacemaker; R47.81 Slurred speech; R32 Unspecified urinary incontinence; I48.91 Unspecified atrial fibrillation; F17.200 Nicotine dependence, unspecified, uncomplicated; N18.30 Chronic kidney disease, stage 3 unspecified